=== PATIENT | female | born 1990 | race Caucasian/White ===

== ENCOUNTER 2020-10-14 10:16 | Outpatient (REF) | payer OTHER, SELFPAY ==
[2020-10-14 12:01] LABS: Basophils Percent Auto 0.2 % (0-2); Eosinophils Absolute Auto 0.2 X10*3/uL (0.0-0.4); Eosinophils Percent Auto 1.3 % (0-4); Hematocrit 39.5 % (37-47); Hemoglobin 13.2 g/dl (12.0-16.0); Imm Gran Abs Auto 0.06 X10*3/uL (0.00-0.03); Imm Gran Pct Auto 0.5 % (0.0-0.4); Lymphocytes Absolute Auto 3.4 X10*3/uL (1.2-4.9); Lymphocytes Percent Auto 30.4 % (20-40); MANUAL DIFF FLAG NO; Mean Corpuscular HGB Conc 33.4 g/dl (31.0-35.0); Mean Corpuscular Hemoglobin 29.9 pg (27.0-33.0); Mean Corpuscular Volume 89.4 fL (80-98); Monocytes Absolute Auto 0.7 X10*3/uL (0.1-1.2); Monocytes Percent Auto 6.6 % (2-11); Neutrophils Absolute Auto 6.8 X10*3/uL (2.0-8.3); Platelet Count 323 X10*3/uL (160-400); Red Blood Count 4.42 X10*6/uL (4.20-5.50); Red Cell Distribution Width 12.2 % (11.0-16.0); White Blood Count 11.2 X10*3/uL (4.8-10.8)
[2020-10-14 12:36] LABS: Cholesterol 217 mg/dL; HDL Cholesterol 35 mg/dL; LDL Cholesterol Calculated 144 mg/dl; Triglycerides 193 mg/dL
[2020-10-14 12:42] LABS: Thyroid Stimulating Hormone 0.97 uIU/mL (0.32-4.0)
[2020-10-14 13:14] LABS: Estimated Average Glucose 131 mg/dL; Hemoglobin A1C 149.7021 umol/L; Hemoglobin A1c % 6.2 %
[2020-10-14 13:20] LABS: Creatinine Urine 322.42 mg/dL; Microalbum/Creatinine Ratio Ur 8.6 ug/mg cr
== END 2020-10-14 10:17 | disposition home or self-care (01) ==
LOC: HO.LAB 10:16
PROVIDERS: Visit Provider Internal Medicine
DX: Z00.00 Encounter for general adult medical examination without abnormal findings (principal); E11.9 Type 2 diabetes mellitus without complications; E03.9 Hypothyroidism, unspecified
CPT/HCPCS: 36415; 80061; 82043; 83036; 84443; 85025

== ENCOUNTER → 2021-03-14 15:38 | Outpatient (BNVA) | payer OTHER, SELFPAY | PROVIDERS: PCP Internal Medicine; Referring Provider Internal Medicine; Visit Provider Physician Assistant ==

== ENCOUNTER → 2021-03-20 13:36 | Outpatient (BNVA) | payer OTHER, SELFPAY | PROVIDERS: PCP Internal Medicine; Referring Provider Internal Medicine; Visit Provider Internal Medicine Cardiovascular Disease | DX: Z01.810 Encounter for preprocedural cardiovascular examination (principal); I25.10 Atherosclerotic heart disease of native coronary artery without angina pectoris; G70.00 Myasthenia gravis without (acute) exacerbation; J45.909 Unspecified asthma, uncomplicated; E11.9 Type 2 diabetes mellitus without complications; E66.01 Morbid (severe) obesity due to excess calories; Z88.0 Allergy status to penicillin; Z88.8 Allergy status to other drugs, medicaments and biological substances; Z79.52 Long term (current) use of systemic steroids; Z79.899 Other long term (current) drug therapy | CPT/HCPCS: 93005; 99202 ==

== ENCOUNTER → 2021-03-21 08:34 | Outpatient (BNVA) | payer OTHER, SELFPAY | PROVIDERS: PCP Internal Medicine; Visit Provider Surgery ==

== ENCOUNTER → 2021-04-16 08:22 | Outpatient (BNVA) | payer OTHER, SELFPAY | PROVIDERS: PCP Internal Medicine; Visit Provider Surgery ==

== ENCOUNTER 2021-04-23 | Outpatient (REF) | payer OTHER, SELFPAY | END 2021-04-23 00:01 | LOC: CF | PROVIDERS: PCP Internal Medicine; Visit Provider Dietitian, Registered | DX: Z01.818 Encounter for other preprocedural examination (principal); E66.01 Morbid (severe) obesity due to excess calories; E11.9 Type 2 diabetes mellitus without complications; K21.9 Gastro-esophageal reflux disease without esophagitis; G70.00 Myasthenia gravis without (acute) exacerbation; Z88.1 Allergy status to other antibiotic agents; Z91.010 Allergy to peanuts | CPT/HCPCS: 97802 ==

== ENCOUNTER → 2021-05-15 08:08 | Outpatient (BNVA) | payer OTHER, SELFPAY | PROVIDERS: PCP Internal Medicine; Visit Provider Dietitian, Registered | DX: E66.01 Morbid (severe) obesity due to excess calories (principal); Z68.42 Body mass index [BMI] 45.0-49.9, adult | CPT/HCPCS: 97803 ==

== ENCOUNTER → 2021-06-12 08:15 | Outpatient (BNVA) | payer OTHER, SELFPAY | PROVIDERS: PCP Internal Medicine; Visit Provider Dietitian, Registered ==

== ENCOUNTER → 2021-06-23 14:15 | Outpatient (REF) | payer OTHER, SELFPAY ==
--- NOTE | 2021-06-23 14:16 | CA_ITS ---
Transthoracic Echocardiogram Patient (Last, First, Middle): Denisse Desai, Gender: Female Date of : 1990 Age: 30 Procedure Date: 06/23/2021 Procedure Type: Transthoracic Echocardiogram Location: OP Height: 160.02 cm Weight: 131.54 kg BSA: 2.26 m2 Heart Rate: bpm BP: 120 / 80 mmHg Metal Cut Off Saw Operator: UMAIR Ulloa MD: Kunal Coughlin MD Maintenance Planning Clerk: Fabio Myers MD Symptoms: I25.10 - Atherosclerotic heart disease of [place] coronary... Study Quality: Fair ECG Rhythm: Sinus Conclusions: - Normal study Findings Left Ventricle Normal left ventricular size, thickness, and systolic function. The visually estimated ejection fraction is between 55-60%. Diastolic function is normal for age. Right Ventricle Normal right ventricular cavity size and systolic function. Atria Both atria are normal in size. There is no evidence of interatrial shunt. Aortic Valve Normal aortic valve structure and function. There is no aortic valve stenosis. There is no aortic valve regurgitation. Mitral Valve Normal mitral valve structure and function. There is trace mitral valve regurgitation. There is no mitral valve stenosis. Pulmonic Valve The pulmonic valve is likely normal. There is trace pulmonic valve regurgitation. Tricuspid Valve Normal tricuspid valve structure. There is trace tricuspid valve regurgitation. The right ventricular systolic pressure is normal. The right ventricular systolic pressure is 16 mmHg. Normal right atrial pressure. There is no evidence of pulmonary hypertension. Great Vessels All visible segments of the aorta are normal in size. The pulmonary artery was not well visualized. Venous The inferior vena cava is normal in size and collapses greater than 50% with inspiration. Pericardium/Pleural There is no evidence of pericardial effusion. Prior Study Comparison No prior study available for comparison. Measurements 2D Linear Measurements IVSd: 0.96 0.6-0.9/0.6-1.0 cm LVIDd: 4.58 3.9-5.3/4.2-5.9 cm LVIDd Index: 2.03 2.4-3.2/2.2-3.1 cm/m2 LVIDs: 2.73 2.0-3.6 cm LVPWd: 0.97 0.7-1.1 cm Ao Root: 3.40 2.1-3.5 cm LA Diam: 3.90 2.7-3.8/3.0-4.0 cm LAIDs Index: 1.73 1.5-2.3 cm/m2 LV Mass: 187.28 67-162/88-224 g LV Mass Index: 82.87 43-95/49-115 g/m2 LVOT Diam: 2.00 3.0+(-)1.3 cm 2D Systolic Function EF 4C: 56.20 >55% EF 2C: 52.50 >55% EF BiP: 54.50 >55% Mitral Valve MV Pk E: 0.91 MV PK A: 0.55 MV Decel Time: 212.00 E/A: 1.60 E'Lateral: 12.60 E'Medial: 8.05 E/E' Med: 11.30 E/E' Lat: 7.20 PHT: 62.00 MVA PHT: 3.55 Decel [place]: 4.27 Aortic Valve AoV Pk Reid: 1.42 AoV Mn Reid: 0.99 AoV VTI: 0.27 AoV Pk Grad: 8.00 Aov Mn Grad: 4.00 DEWEY Cont.VTI: 2.33 LVOT LVOT Pk Reid: 1.02 LVOT Mn Reid: 0.75 LVOT VTI: 0.20 LVOT Pk Grad: 4.00 LVOT Mn Grad: 2.00 LVOT Diam: 2.00 LVOT Area: 3.14 Diastolic Function MV Pk E: 0.91 MV Pk A: 0.55 E/A: 1.60 E'Medial: 8.05 E/E' Med: 11.30 E' Laterial: 12.60 E/E' Lat: 7.20 Tricuspid Valve TR Pk Reid: 1.81 TR Pk Grad: 13.00 RA Press: 3.00 RVSP: 16.00 Great Vessels Aorta Ao Root-2D: 3.40 2.0-3.7 cm Ao Asc: 3.30 2.1-3.4 cm Ao Arch: 2.80 Updated in Other Vendor System with Status of Final Fabio Myers MD electronically signed on 06/24/2021 10:20:04 AM with status of Final
== END ==
LOC: HO.CARD 14:15
PROVIDERS: Visit Provider Internal Medicine Cardiovascular Disease
DX: I25.10 Atherosclerotic heart disease of native coronary artery without angina pectoris (principal)
CPT/HCPCS: 93306

== ENCOUNTER → 2021-07-14 15:20 | Outpatient (BNVA) | payer OTHER, SELFPAY | PROVIDERS: PCP Internal Medicine; Referring Provider Internal Medicine; Visit Provider Internal Medicine Cardiovascular Disease | DX: Z01.810 Encounter for preprocedural cardiovascular examination (principal); E66.01 Morbid (severe) obesity due to excess calories | CPT/HCPCS: 99212 ==

== ENCOUNTER 2021-08-08 11:24 | Outpatient (REF) | payer OTHER, SELFPAY ==
[2021-08-08 12:25] LABS: MANUAL DIFF FLAG NO
[2021-08-08 12:29] LABS: Basophils Percent Auto 0.3 % (0-2); Eosinophils Absolute Auto 0.2 X10*3/uL (0.0-0.4); Eosinophils Percent Auto 1.5 % (0-4); Hematocrit 40.4 % (37-47); Hemoglobin 13.2 g/dl (12.0-16.0); Imm Gran Abs Auto 0.07 X10*3/uL (0.00-0.03); Imm Gran Pct Auto 0.5 % (0.0-0.4); Lymphocytes Absolute Auto 4.4 X10*3/uL (1.2-4.9); Lymphocytes Percent Auto 32.6 % (20-40); Mean Corpuscular HGB Conc 32.7 g/dl (31.0-35.0); Mean Corpuscular Hemoglobin 29.6 pg (27.0-33.0); Mean Corpuscular Volume 90.6 fL (80-98); Mean Platelet Volume 10.4 fL (9.4-12.3); Monocytes Absolute Auto 0.8 X10*3/uL (0.1-1.2); Monocytes Percent Auto 6.2 % (2-11); Neutrophils Absolute Auto 7.8 X10*3/uL (2.0-8.3); Neutrophils Percent Auto 58.9 % (45-73); Platelet Count 321 X10*3/uL (160-400); Red Blood Count 4.46 X10*6/uL (4.20-5.50); Red Cell Distribution Width 12.7 % (11.0-16.0); White Blood Count 13.3 X10*3/uL (4.8-10.8)
[2021-08-08 12:38] LABS: Alanine Aminotransferase 36 U/L (0-31); Alkaline Phosphatase 63 U/L (39-117); Anion Gap 13 (12-20); Aspartate Amino Transferase 36 U/L (5-31); Bilirubin Total 0.5 mg/dL (0.0-1.0); Blood Urea Nitrogen 13 mg/dL (9-16); Calcium 9.2 mg/dL (8.4-10.2); Carbon Dioxide 23 mmol/L (22-29); Chloride 105 mmol/L (96-108); Cholesterol 220 mg/dL; Estimated Glomerular Filt Rate > 60; Glucose Fasting 85 mg/dL (60-99); HDL Cholesterol 39 mg/dL; LDL Cholesterol Calculated 153 mg/dl; Potassium 4.1 mmol/L (3.3-5.1); Sodium 137 mmol/L (135-145); Total Protein 7.7 g/dL (6.5-8.0); Triglycerides 144 mg/dL
[2021-08-08 12:59] LABS: TSH reflex Free T4 1.79 uIU/mL (0.32-4.0); Vitamin D 25-OH Total 14.7 ng/mL (>30)
[2021-08-08 13:14] LABS: Folate 12.6 ng/mL (> or = 4.0); Vitamin B12 174 pg/mL (200-900)
[2021-08-08 13:20] LABS: Syphilis Screen Nonreactive (Nonreactive)
[2021-08-11 08:39] LABS: HBc Num1 0.08 S/CO (0.00-0.79); HBsAGNum1 0.47 S/CO (0.00-0.99); Hepatitis B Core Antibody Nonreactive (Nonreactive); Hepatitis B Surface Antigen Negative (Negative); ~HepC Num1 0.11 S/CO (0.00-0.79); ~Hepatitis C Antibody Nonreactive (Nonreactive)
[2021-08-11 09:00] LABS: HBS Num1 0.71 mIU/mL (0-7.99); HIV AB/AG Nonreactive (Nonreactive); ~Hepatitis B Surface Antibody NONREACTIVE (Nonreactive)
[2021-08-13 13:36] LABS: Chlamydia Pneumoniae IgA <1:16 titer (<1:16); Chlamydia Pneumoniae IgG <1:64 titer (<1:64); Chlamydia Pneumoniae IgM <1:10 titer (<1:10); Chlamydia Psittaci IgA <1:16 titer (<1:16); Chlamydia Psittaci IgG <1:64 titer (<1:64); Chlamydia Psittaci IgM <1:10 titer (<1:10); Chlamydia Trachomatis IgA <1:16 titer (<1:16); Chlamydia Trachomatis IgG <1:64 titer (<1:64); Chlamydia Trachomatis IgM <1:10 titer (<1:10)
== END 2021-08-08 11:25 | disposition home or self-care (01) ==
LOC: HO.LAB 11:24
PROVIDERS: PCP Internal Medicine; Visit Provider Nurse Practitioner Family
DX: Z01.84 Encounter for antibody response examination (principal); Z13.29 Encounter for screening for other suspected endocrine disorder; Z13.220 Encounter for screening for lipoid disorders; Z11.4 Encounter for screening for human immunodeficiency virus [HIV]; Z11.3 Encounter for screening for infections with a predominantly sexual mode of transmission; K21.9 Gastro-esophageal reflux disease without esophagitis
CPT/HCPCS: 36415; 80053; 80061; 82306; 82607; 82746; 84443; 85025; 86631; 86632; 86704; 86706; 86780; 86803; 87340; 87389

== ENCOUNTER 2021-08-28 11:34 | Outpatient (REF) | payer OTHER, SELFPAY ==
[2021-08-29 13:48] LABS: CT PCR NOT DETECTED (Not Detect.); NG PCR NOT DETECTED (Not Detect.)
[2021-08-30 14:44] LABS: BV Int Neg Control Negative (Negative); BV Int Pos Control Positive (Positive)
== END 2021-08-28 11:35 | disposition home or self-care (01) ==
LOC: HO.LAB 11:34
PROVIDERS: PCP Internal Medicine; Visit Provider Advanced Practice Midwife
DX: Z01.419 Encounter for gynecological examination (general) (routine) without abnormal findings (principal); E66.01 Morbid (severe) obesity due to excess calories; Z68.42 Body mass index [BMI] 45.0-49.9, adult; Z20.2 Contact with and (suspected) exposure to infections with a predominantly sexual mode of transmission
CPT/HCPCS: 87480; 87491; 87510; 87591; 87660; 88142

== ENCOUNTER 2021-10-25 17:25 | Outpatient (REF) | payer OTHER, SELFPAY | END 2021-10-25 17:26 | disposition home or self-care (01) | LOC: HO.LNP 17:25 | PROVIDERS: Visit Provider Physician Assistant Medical | DX: Z20.822 Contact with and (suspected) exposure to COVID-19 (principal) | CPT/HCPCS: U0003; U0005 ==

== ENCOUNTER 2021-10-27 10:58 | Outpatient (REF) | payer OTHER, SELFPAY ==
--- NOTE | ~2021-10-27 | XR_ITS ---
EXAMINATION: XR CHEST CLINICAL INFORMATION: Cough COMPARISON: 11/13/2016 TECHNIQUE: 2 views of the chest were obtained. FINDINGS: Lungs are clear. No focal consolidation or mass. Normal pulmonary vascularity. No pleural effusion or pneumothorax. Normal heart size. No acute osseous abnormality. XR/XR chest 2V IMPRESSION: Clear lungs.
--- NOTE | 2021-11-17 13:45 | PM.NEUROCN ---
History of Present Illness Data of Consult Service Date: 11/17/21 Primary Care Provider: Nemo Ortiz MD HPI Reason for consult: Myasthenia gravis 31 years old woman whose history was obtained with the help of an slat basket maker helper machine. She provided her own history and previous records mostly were not available. She said that she was diagnosed with myasthenia gravis in 2017 in this hospital but she has no record of seeing and neurologist. I did not find any lab test to confirm that either. I did notice that she had been admitted for dysphagia and breathing difficulties. She said that she left this state in 2017 to get better medical care and moved to [facility] where she was diagnosed with myasthenia gravis and was treated with thymectomy and then put on multiple medicines. She moved back to this area when COVID infection started, which was more than a year ago. Apparently her primary care physician referred her to [facility] Neurology but she has not been able to see any neurologist yet. She was in usual state of health until couple of days ago when she said that she had generalized muscle weakness. There was no double vision or difficulty breathing or difficulty swallowing. There was no associated cold or flu-like illness. She has not started taking any new medicine. Review of Systems Review of Systems: No recent cold or flu-like illness PMFSH Past Medical History Medical History Asthma CAD (coronary artery disease) Diabetes mellitus Fall GERD (gastroesophageal reflux disease) Lower back pain Morbid obesity Myasthenia gravis Sleep apnea Family History Family History Father Hypertension Diabetes Mother Diabetes Hypertension Maternal Grandfather Diabetes Hypertension Bone cancer Maternal Aunt Breast cancer Maternal Grandmother Diabetes Hypertension CVD (cardiovascular disease) Other Mental health disorder Surgical History Surgical History History of cholecystectomy History of tonsillectomy and adenoidectomy S/P thymectomy Social History Social History Housing: Apartment Alcohol intake: never Patient Tobacco Use Status: Never used Tobacco e-Cigarette/Vaping Use: Never Used Second Hand Smoke Exposure: No Advance Directives: No Advance Directives Information Provided: No Patient : No service: No Current occupational status: disabled Meds Allergies Allergy/AdvReac Type Severity Reaction Status Date / Time erythromycin base Allergy Intermediate Swelling Verified 10/25/21 14:45 levofloxacin [From LEVAQUIN] Allergy Intermediate RASH AND Verified 10/25/21 14:45 HIVES penicillin V Allergy Intermediate swelling Verified 10/25/21 14:45 Penicillins [PENICILLINS] Allergy Intermediate Swelling Verified 10/25/21 14:45 Home Medications Medication Instructions Recorded Confirmed Last Taken Type canagliflozin 100 mg tablet 100 mg PO DAILY 03/21/21 08/28/21 Unknown History (Invokana) topiramate 25 mg tablet 25 mg PO BID 03/21/21 08/28/21 Unknown History miscellaneous medical supply 1 ea MISCELLANEOUS .once a day ea 05/15/21 08/28/21 Unknown History Physical Exam Neuro: Other: she was alert and awake with normal spontaneity of speech fluency comprehension and affect. She was comfortably watching videos on her telephone when I arrived. There was no sign of distress. They might be mild bilateral ptosis. Face otherwise was symmetrical. Tongue was midline. There was no focal weakness for. Deep tendon reflexes were trace to 1+ with flexor plantars. Speech was normal. Assessment and Plan (1) Myasthenia gravis: Status: Acute 31 years old woman who provided her own history stating that she was diagnosed with myasthenia gravis in this hospital in 2017 but I did not find any such records. She said that she moved out of this state in 2017 to get a better health care in [place] where she was formally diagnosed with this condition and treated with thymectomy. Apparently she has been taking multiple medicines that suggested that she probably has this condition. She has been trying to obtain a Neurology follow-up and wanted to see nerve a neurologist in [facility] but so far has not been able to see 1. She came to emergency room with complaint of generalized weakness that started couple of days ago. There was no obvious infection or flu-like illness. Her examination at this time was nonfocal. There was no obvious dysphagia, dysphonia, dysarthria or difficulty breathing. Looking at her primary care's note, it seems that she was taking combination of prednisone, pyridostigmine, and mycophenylate. He said that she had records from her doctors in [place]. At this time my recommendation is to obtain as a tile: Receptor antibody titer with binding, blocking and modulating titers. It is critical to review her records from her doctors in [place] to find out the exact diagnosis. I recommend vital capacity or some appropriate pulmonary function test to rule out any pulmonary issues. I recommend admitting her for observation to make sure we are not dealing with myasthenia axis of [place] [facility], which might require urgent treatment with IVIG. Procedures Date of Service Date of Service: 11/17/21
== END 2021-10-27 10:59 | disposition home or self-care (01) ==
LOC: HO.HMGCX 10:58
PROVIDERS: PCP Internal Medicine; Visit Provider Nurse Practitioner Family
DX: R05.9 Cough, unspecified (principal)
CPT/HCPCS: 71046

== ENCOUNTER 2021-11-17 07:40 | Observation (INO) | payer OTHER, SELFPAY ==
[2021-11-17] VITALS (7 sets, daily range): BP systolic 123–138; BP diastolic 72–87; PULSE 82–91; RESP 14–18; TEMP 36.1–37.4; O2SAT 97–100; BMI 46.5
[2021-11-17 08:17] LABS: Appearance Urine CLOUDY; Color Urine RED; Glucose Urine UA NEG (NEG); Leukocyte Esterase Urine NEG (NEG); PH 5.5 (5.0-8.0); Specific Gravity - Urine >= 1.030 (1.005-1.025); UPreg QC Valid YES; Urine Blood 3+ (NEG); Urine Pregnancy NEGATIVE (NEGATIVE)
[2021-11-17 08:27] LABS: UACC Culture Trigger NO
[2021-11-17 08:28] LABS: RBC Urine TNTC /HPF (0); Squamous Epithelial Cell Urine 1+ /LPF; WBC Urine 0 /HPF (0-4)
--- NOTE | 2021-11-17 09:07 | ED_ITS ---
HPI - Female Genitourinary General Chief complaint: Urogenital-Female Stated complaint: back/arm pain Time Seen by Provider: 11/17/21 08:42 Source: patient Mode of arrival: ambulatory Limitations: no limitations History of Present Illness HPI Narrative: This is a 31-year-old female past medical history significant for diabetes, myasthenia gravis (not on treatment), coronary artery disease, obesity, asthma, MDD presents to the ED with concerns of bilateral flank pain and weakness X1 week, progressively worsening patient tells me this feels like her typical myasthenia gravis crisis. She tells me she feels so weak she is dropping things, this started yesterday. Patient denies recent illness. She tells me she is vaccinated against COVID-19. She denies shortness of breath, chest pain, nausea, vomiting, fevers, chills, saddle paresthesias, urinary incontinence/bowel incontinence, dysuria. To note, patient tells me that she has gotten a thymectomy for myasthenia gravis, and she has required multiple intubations in the past. Her last 1 was in 2016 year at [facility], and at [facility] elicited complaint: other (myalgias ) Pertinent past history: other (Myasthenia gravis) Onset (ago): week(s) (1) Severity: moderate Female Urogenital Radiation: Non-Radiating Vaginal discharge: none Vaginal bleeding: none Exacerbating factors: none Relieving factors: none Associated symptoms: weakness and back pain (Described as muscle soreness in the back) Treatment prior to arrival: none Sexual activity: No Patient : No Related Data Home Medications Medication Instructions Recorded Confirmed canagliflozin 100 mg tablet 100 mg PO DAILY 03/21/21 08/28/21 (Invokana) topiramate 25 mg tablet 25 mg PO BID 03/21/21 08/28/21 furosemide 40 mg tablet 1 tab PO DAILY 11/17/21 Previous Rx's Medication Instructions Recorded omeprazole 40 mg capsule,delayed 40 mg PO DAILY #90 cap 10/16/20 release norethindrone acetate 5 mg tablet 5 mg PO DAILY #90 tab 02/14/21 diclofenac sodium 75 mg 75 mg PO BID PRN 10 Days #20 tab 08/07/21 tablet,delayed release mycophenolate mofetil 500 mg tablet 1,000 mg PO Q12H 60 Days #240 tab 08/07/21 prednisone 10 mg tablet 10 mg PO BID 14 Days #28 tab 08/07/21 pyridostigmine bromide 60 mg tablet 60 mg PO BID 60 Days #120 tab 08/07/21 cholecalciferol (vitamin D3) 25 25 mcg PO DAILY 30 Days #30 tab 08/11/21 mcg (1,000 unit) tablet cyanocobalamin (vitamin B-12) 1,000 mcg PO DAILY 30 Days #30 tab 08/11/21 1,000 mcg tablet metronidazole 500 mg tablet 500 mg PO BID 7 Days #14 tab 09/05/21 albuterol sulfate 2.5 mg (3 mL) INHALATION QID PRN 10/25/21 #75 ml doxycycline hyclate 100 mg capsule 100 mg PO BID 10 Days #20 cap 10/25/21 prednisone 10 mg tablet 40 mg PO DAILY 3 Days #30 tab 10/25/21 Allergies Allergy/AdvReac Type Severity Reaction Status Date / Time erythromycin base Allergy Intermediate Swelling Verified 10/25/21 14:45 levofloxacin [From LEVAQUIN] Allergy Intermediate RASH AND Verified 10/25/21 14:45 HIVES penicillin V Allergy Intermediate swelling Verified 10/25/21 14:45 Penicillins [PENICILLINS] Allergy Intermediate Swelling Verified 10/25/21 14:45 Review of Systems Review of Systems: Constitutional : No Weight loss, No Fever, No Chills, + Fatigue, + Malaise ENT/Mouth : No sore throat, No Rhinorrhea Eyes: No Eye Pain, No Swelling, No Redness Cardiovascular : No Chest Pain, No SOB, No Dyspnea on Exertion, No Orthopnea, No Edema, No Palpitations Respiratory : No Cough, No Sputum, No Wheezing Gastrointestinal : No Nausea, No Vomiting, No Diarrhea, No Constipation, No abdominal Pain, No Hematochezia, No Melena Genitourinary : No Dysuria, No Urinary Frequency, No Hematuria, Musculoskeletal : No joint pain, + Myalgias, No Joint Swelling Skin : No Skin Lesions, No rash Neuro : + Weakness, No Numbness, No Dizziness, No Headache Psych : No Anxiety/Panic, No Depression All other systems reviewed and are negative Yes all other systems are reviewed and are negative PMFSH Past Medical History Attestation statement: The following information was validated with the patient. Source: old records reviewed and nursing notes reviewed Medical History Asthma CAD (coronary artery disease) Diabetes mellitus Fall GERD (gastroesophageal reflux disease) Lower back pain Morbid obesity Myasthenia gravis Sleep apnea Surgical History History of cholecystectomy History of tonsillectomy and adenoidectomy S/P thymectomy Family History Family History Father Hypertension Diabetes Mother Diabetes Hypertension Maternal Grandfather Diabetes Hypertension Bone cancer Maternal Aunt Breast cancer Maternal Grandmother Diabetes Hypertension CVD (cardiovascular disease) Other Mental health disorder Social History Social History Housing: Apartment Alcohol intake: never Patient Tobacco Use Status: Never used Tobacco e-Cigarette/Vaping Use: Never Used Second Hand Smoke Exposure: No Advance Directives: No Advance Directives Information Provided: No Patient : No service: No Current occupational status: disabled Physical Exam Vital Signs: Vital Signs: Last Vital Signs Temp 97.7 F 11/17/21 13:01 Pulse 86 11/17/21 14:36 Resp 18 11/17/21 14:36 BP 123/80 11/17/21 14:36 Pulse Ox 99 11/17/21 14:36 BMI result Body Mass Index 46.5 Vital signs stable Appearance: Alert.? Oriented X3.? No acute distress.? Patient not using accessory muscles for breathing. Head: Normocephalic, atraumatic, no step-offs or deformities Eyes: Pupils equal, round and reactive to light.? ENT: Pharynx normal.? Neck: Normal inspection.? Neck supple.? CVS: Normal heart rate and rhythm.? Pulses normal.? Respiratory: No respiratory distress.? Breath sounds normal.? Abdomen: Soft and nontender.? Skin: Skin warm and dry.? Normal skin color.? Normal skin turgor.? Extremities: No lower extremity edema.? No calf ttp. 5/5 strength to bilateral upper and lower extremities Back: No midline tenderness, no C-spine tenderness, full range of motion, no CVA tenderness bilaterally Neuro: Oriented X 3.? No motor deficit.? No sensory deficit. Patient ambulating with a slow gait. Proprioception intact upper and lower extremities. Two-point extinction intact upper and lower extremities Course Reevaluation(s) Reevaluation #1: CBC within normal limits. No acute electrolyte abnormalities. Transaminases are noted to be elevated, this appears to be chronic in nature they have been elevated in the past last time they were elevated with August 08, 2021. Patient's CRP markedly elevated 2.45. At this time I will reach out to Neurology for guidance on patient management. Time: 10:43 Reevaluation #2: Spoke to who suggest transfer to [facility]. 1105 Spoke to [facility] waiting for a call back. [address] [facility] [address] Lee tells me that this is a patient that is followed by [facility] did not accept transfer. They recommend me call [facility]. Time: 11:35 Reevaluation #3: [address] [facility] closed to transfers. 1155 [place] at capacity. Will get put on wait list 1218 [place] closed for transfers Time: 12:18 Additional Reevaluation(s): 1355 Dr Ferreira recommendation At this time my recommendation is to obtain as a tile: Receptor antibody titer with binding, blocking and modulating titers.? It is critical to review her records from her doctors in [place] to find out the exact diagnosis.? I recommend vital capacity or some appropriate pulmonary function test to rule out any pulmonary issues. ? I recommend admitting her for observation to make sure we are not dealing with myasthenia axis of [facility], ich might require urgent treatment with IVIG. Will reach out to hospitalist for admission. MDM - Female Genitourinary MDM Narrative Medical decision making narrative: 939 31 yo F pmhx diabetes, myasthenia gravis (not on treatment), coronary artery disease, obesity, asthma, MDD presents w/ bilateral flank pain and weakness X1 week, progressively worsening patient tells me this feels like her typical myasthenia gravis crisis. Has required BIPAP and intubation in the past for MG. Not on maintenance therapy. PE benign, 5/5 strength upper and lower extremities. Proprioception intact. Two-point extinction intact. Full range of motion to all extremities. No accessory muscle use. Plan at this time is to obtain basic labs, and consult Neurology for advised. Medical Records Attestation: I reviewed the patient's medical records. Lab Data Attestation: I reviewed the patient's lab results. Result diagrams: 11/17/21 09:39 11/17/21 09:39 Labs: Lab Results 11/17/21 11/17/21 11/17/21 Range/Units 08:06 08:06 09:32 WBC (4.8-10.8) X10*3/uL RBC (4.20-5.50) X10*6/uL Hgb (12.0-16.0) g/dl Hct (37.0-47.0) % MCV (80.0-98.0) fL MCH (27.0-33.0) pg MCHC (31.0-35.0) g/dl RDW (11.0-16.0) % Plt Count (160-400) X10*3/uL MPV (9.4-12.3) fL Immature Gran % (Auto) (0.0-0.4) % Neut % (Auto) (45-73) % Lymph % (Auto) (20-40) % [place] % (Auto) (2-11) % Eos % (Auto) (0-4) % Baso % (Auto) (0-2) % Lymph # (Auto) (1.2-4.9) X10*3/uL [place] # (Auto) (0.1-1.2) X10*3/uL Eos # (Auto) (0.0-0.4) X10*3/uL Baso # (Auto) (0.0-0.2) X10*3/uL Abs Immat Gran (auto) (0.00-0.03) X10*3/uL Absolute Neuts (auto) (2.0-8.3) x10*3/uL Absolute Nucleated RBC (0.0-0.012) X10*3/uL Nucleated RBC % (auto) (0.0-0.2) /100WBC Smear Tech's Comments ESR (0-20) MM/HR Sodium (135-145) mmol/L Potassium (3.3-5.1) mmol/L Chloride (96-108) mmol/L Carbon Dioxide (22-29) mmol/L Anion Gap (12-20) BUN (9-16) mg/dL Creatinine (0.5-1.4) mg/dL Estim Creat Clear Calc Estimated GFR Random Glucose (60-115) mg/dL Calcium (8.4-10.2) mg/dL Total Bilirubin (0.0-1.0) mg/dL AST (5-31) U/L ALT (0-31) U/L Alkaline Phosphatase (39-117) U/L C-Reactive Protein (< or = 0.50) mg/dL Total Protein (6.5-8.0) g/dL Albumin (3.5-5.0) g/dL Urine Color RED Urine Appearance CLOUDY Urine pH 5.5 (5.0-8.0) Ur Specific [place] >= 1.030 H (1.005-1.025) Urine Protein SEE NOTE (NEG-TRACE) MG/DL Urine Glucose (UA) NEG (NEG) MG/DL Urine Ketones SEE NOTE (NEG) MG/DL Urine Blood 3+ H (NEG) Urine Nitrite SEE NOTE (NEG) Ur Leukocyte Esterase NEG (NEG) Urine RBC TNTC H (0) /HPF Urine WBC 0 (0-4) /HPF Ur Squamous Epith Cells 1+ /LPF Urine Bacteria NONE /LPF Urine Test NEGATIVE (NEGATIVE) COVID-19 (LAMAR) Negative (Negative) COVID-19 Clin Com See Note 11/17/21 11/17/21 11/17/21 Range/Units 09:39 09:39 09:39 WBC 6.7 (4.8-10.8) X10*3/uL RBC 4.24 (4.20-5.50) X10*6/uL Hgb 12.5 (12.0-16.0) g/dl Hct 38.2 (37.0-47.0) % MCV 90.1 (80.0-98.0) fL MCH 29.5 (27.0-33.0) pg MCHC 32.7 (31.0-35.0) g/dl RDW 12.9 (11.0-16.0) % Plt Count 208 (160-400) X10*3/uL MPV 9.4 (9.4-12.3) fL Immature Gran % (Auto) 0.1 (0.0-0.4) % Neut % (Auto) 51.8 (45-73) % Lymph % (Auto) 37.4 (20-40) % [place] % (Auto) 9.3 (2-11) % Eos % (Auto) 1.0 (0-4) % Baso % (Auto) 0.4 (0-2) % Lymph # (Auto) 2.5 (1.2-4.9) X10*3/uL [place] # (Auto) 0.6 (0.1-1.2) X10*3/uL Eos # (Auto) 0.1 (0.0-0.4) X10*3/uL Baso # (Auto) 0.0 (0.0-0.2) X10*3/uL Abs Immat Gran (auto) 0.01 (0.00-0.03) X10*3/uL Absolute Neuts (auto) 3.5 (2.0-8.3) x10*3/uL Absolute Nucleated RBC 0.000 (0.0-0.012) X10*3/uL Nucleated RBC % (auto) 0.0 (0.0-0.2) /100WBC Smear Tech's Comments VERIFIED ESR 28 H (0-20) MM/HR Sodium 139 (135-145) mmol/L Potassium 3.5 (3.3-5.1) mmol/L Chloride 106 (96-108) mmol/L Carbon Dioxide 27 (22-29) mmol/L Anion Gap 10 L (12-20) BUN 9 (9-16) mg/dL Creatinine 0.77 (0.5-1.4) mg/dL Estim Creat Clear Calc 144.6 Estimated GFR > 60 Random Glucose 169 H (60-115) mg/dL Calcium 8.8 (8.4-10.2) mg/dL Total Bilirubin 0.7 (0.0-1.0) mg/dL AST 40 H (5-31) U/L ALT 46 H (0-31) U/L Alkaline Phosphatase 60 (39-117) U/L C-Reactive Protein 2.45 H (< or = 0.50) mg/dL Total Protein 7.4 (6.5-8.0) g/dL Albumin 3.8 (3.5-5.0) g/dL Urine Color Urine Appearance Urine pH (5.0-8.0) Ur Specific [place] (1.005-1.025) Urine Protein (NEG-TRACE) MG/DL Urine Glucose (UA) (NEG) MG/DL Urine Ketones (NEG) MG/DL Urine Blood (NEG) Urine Nitrite (NEG) Ur Leukocyte Esterase (NEG) Urine RBC (0) /HPF Urine WBC (0-4) /HPF Ur Squamous Epith Cells /LPF Urine Bacteria /LPF Urine Test (NEGATIVE) COVID-19 (LAMAR) (Negative) COVID-19 Clin Com Critical Care Time Critical Care Time Critical Care Time: Yes Total Critical Care Time: 60 Attestation: I attest to this time spent taking care of the patient obtaining history and physical, reviewing labs, reviewing previous visits, reaching out to multiple specialists, reaching out to over 5 hospitals for transfer, consulting with my attending. Discharge Plan Discharge Clinical Impression: Myalgia, Myasthenia gravis Patient Disposition: Admitted As Inpatient Additional Instructions: Take your medications as prescribed. If you were prescribed antibiotics today, it is important that you take your medication to their entirety, do not skip any doses, do not finish them early. Follow-up with your primary care provider this week. Follow up with neurology Return to the emergency department with new or worsening symptoms. In case of emergency call 911
[2021-11-17 09:44] LABS: Basophils Percent Auto 0.4 % (0-2); Eosinophils Absolute Auto 0.1 X10*3/uL (0.0-0.4); Hematocrit 38.2 % (37.0-47.0); Hemoglobin 12.5 g/dl (12.0-16.0); Imm Gran Abs Auto 0.01 X10*3/uL (0.00-0.03); Imm Gran Pct Auto 0.1 % (0.0-0.4); Lymphocytes Absolute Auto 2.5 X10*3/uL (1.2-4.9); Lymphocytes Percent Auto 37.4 % (20-40); MANUAL DIFF FLAG SCAN; Mean Corpuscular HGB Conc 32.7 g/dl (31.0-35.0); Mean Corpuscular Hemoglobin 29.5 pg (27.0-33.0); Mean Corpuscular Volume 90.1 fL (80.0-98.0); Mean Platelet Volume 9.4 fL (9.4-12.3); Monocytes Absolute Auto 0.6 X10*3/uL (0.1-1.2); Monocytes Percent Auto 9.3 % (2-11); Neutrophils Absolute Auto 3.5 x10*3/uL (2.0-8.3); Neutrophils Percent Auto 51.8 % (45-73); Platelet Count 208 X10*3/uL (160-400); Red Blood Count 4.24 X10*6/uL (4.20-5.50); Red Cell Distribution Width 12.9 % (11.0-16.0); SCAN SMEAR FLAG 1; White Blood Count 6.7 X10*3/uL (4.8-10.8)
[2021-11-17 10:00] LABS: Alanine Aminotransferase 46 U/L (0-31); Albumin Level 3.8 g/dL (3.5-5.0); Alkaline Phosphatase 60 U/L (39-117); Anion Gap 10 (12-20); Aspartate Amino Transferase 40 U/L (5-31); Bilirubin Total 0.7 mg/dL (0.0-1.0); Blood Urea Nitrogen 9 mg/dL (9-16); Calcium 8.8 mg/dL (8.4-10.2); Carbon Dioxide 27 mmol/L (22-29); Chloride 106 mmol/L (96-108); Creatinine Clr Calc Pharmacy 144.6; Estimated Glomerular Filt Rate > 60; Glucose Random 169 mg/dL (60-115); Potassium 3.5 mmol/L (3.3-5.1); Sodium 139 mmol/L (135-145); Total Protein 7.4 g/dL (6.5-8.0)
[2021-11-17 10:01] LABS: SLIDE REVIEW VERIFIED
[2021-11-17 10:07] LABS: C Reactive Protein 2.45 mg/dL (< or = 0.50)
[2021-11-17 10:08] LABS: COVID-19 Test Negative (Negative); IDNOW Serial# 9DD0AD1C
[2021-11-17 10:44] LABS: Erythrocyte Sedimentation Rate 28 MM/HR (0-20)
--- NOTE | 2021-11-17 11:05 | PC.NURSE ---
@11:00AM JARETH BYRNES ASKS FOR CALL OUT TO [facility] [place] LINE [phone] EMILY ANSWERS AND ASKS TO SPEAK WITH JARETH BYRNES TAKES OVER CALL RIGHT AWAY
--- NOTE | 2021-11-17 11:46 | PC.NURSE ---
@1140AM JARETH BYRNES REQUESTS CALL OUT TO [facility] FOR POSSIBLE TRANSFER AFTER DECLINE BY [facility] HEMANT ANSWERS AND SAYS THEY ARE CLOSED TO TRANSFERS @ THIS TIME, DOES NOT ASK TO SPEAK WITH JARETH BYRNES AWARE
--- NOTE | 2021-11-17 11:49 | PC.NURSE ---
@ 1149AM SONIYA REQUESTS CALL OUT TO [facility] SOM ANSWERS AND ASKS TO SPEAK WITH SONIYA
--- NOTE | 2021-11-17 12:07 | PC.NURSE ---
@ 1207PM JARETH BYRNES REQUESTS CALL OUT TO [facility] AFTER TRANSFER DECLINES FROM [facility] AND [facility] JUAN ANSWERS AND ASKS TO SPEAK WITH JARETH BYRNES TAKES OVER CALL RIGHT AWAY
--- NOTE | 2021-11-17 13:21 | PC.NURSE ---
dr benton at bedside assessing patient.
--- NOTE | 2021-11-17 13:56 | PC.RT ---
11/17/2021 - NIF measured per provider request. -60
--- NOTE | 2021-11-17 15:43 | PHA.MEDREC ---
Pharmacy Consult ? Medication Reconciliation Pharmacy has completed the medication reconciliation. Patient confirmed medications, but a refill history does not support it. Patient states they are on invokana and prednisone 20 daily (no taper). Patient does agree to poor adherence Thanks Philip
--- NOTE | 2021-11-17 16:25 | P.HPHOSP_ITS ---
History of Present Illness Date of Service: 11/17/21 Chief Complaint: generalized weakness This is a 31 yo F with a PMH outlined below who presents to the hospital with multiple generalized complaints which have been on going for the last 1 week or so. She reports that she feels extremely week and that her muscles are fatigued. She reports exertional shortness of breath. She denies any fevers or chills. She denies any nausea or vomiting. She denies any chest pain or palpitations. She denies any falls. She reports that she was diagnosed with MG and had a thyomectomy performed in [facility] at some point in 2017. She has been on immunosuppressive treatments since then. Upon arrival to the ED, the patient underwent basic work up. She was evaluated by neurology who recommended checking ACTH titers (Modulating, blocking and binding) along with observation to monitor respiratory status. Review of Systems Review of Systems: negative except HPI [facility] Medical History Asthma CAD (coronary artery disease) Diabetes mellitus Fall GERD (gastroesophageal reflux disease) Lower back pain Morbid obesity Myasthenia gravis Sleep apnea Family History Father Hypertension Diabetes Mother Diabetes Hypertension Maternal Grandfather Diabetes Hypertension Bone cancer Maternal Aunt Breast cancer Maternal Grandmother Diabetes Hypertension CVD (cardiovascular disease) Other Mental health disorder Surgical History History of cholecystectomy History of tonsillectomy and adenoidectomy S/P thymectomy Social History Housing: Apartment Alcohol intake: never Patient Tobacco Use Status: Never used Tobacco e-Cigarette/Vaping Use: Never Used Second Hand Smoke Exposure: No Advance Directives: No Advance Directives Information Provided: No Patient : No service: No Current occupational status: disabled Meds Allergies Allergy/AdvReac Type Severity Reaction Status Date / Time erythromycin base Allergy Intermediate Swelling Verified 10/25/21 14:45 levofloxacin [From LEVAQUIN] Allergy Intermediate RASH AND Verified 10/25/21 14:45 HIVES penicillin V Allergy Intermediate swelling Verified 10/25/21 14:45 Penicillins [PENICILLINS] Allergy Intermediate Swelling Verified 10/25/21 14:45 Active Medications: Current Medications Acetaminophen (Acetaminophen 325 Mg Tablet) 650 mg PO Q6H PRN PRN Reason: Pain, Mild (Pain Scale 1-3) Cyanocobalamin (Cyanocobalamin (Vitamin B-12) 1,000 Mcg Tablet) 1,000 mcg PO DAILY DOMINICK Furosemide (Furosemide 40 Mg Tablet) 40 mg PO DAILY DOMINICK; Protocol Mycophenolate Mofetil (Mycophenolate Mofetil 250 Mg Capsule) 1,000 mg PO Q12H DOMINICK Omeprazole (Omeprazole 40 Mg Capsule.) 40 mg PO DAILY PRN PRN Reason: Acid Reflux Pharmacy Consult (Consult Rx Perform Med Rec) 1 each MISCELLANE ONCE PRN PRN Reason: Consult order Prednisone (Prednisone 20 Mg Tablet) 20 mg PO DAILY DOMINICK Pyridostigmine [place] (Pyridostigmine [place] 60 Mg Tablet) 60 mg PO BID DOMINICK Sodium Chloride (0.9 % Sodium Chloride Flush 3 Ml Syringe) 3 ml IVFLUSH QSHIFT DOMINICK Vitamin D (Cholecalciferol (Vitamin D3) 25 Mcg Tablet) 25 mcg PO DAILY [facility] Home Medications Medication Instructions Recorded Confirmed Last Taken Type canagliflozin 100 mg tablet 100 mg PO DAILY 03/21/21 08/28/21 Unknown History (Invokana) furosemide 40 mg tablet 1 tab PO DAILY 11/17/21 11/17/21 11/16/21 History omeprazole 40 mg capsule,delayed 40 mg PO DAILY PRN 11/17/21 11/17/21 11/16/21 History release prednisone 10 mg tablet 20 mg PO DAILY 11/17/21 11/17/21 11/16/21 History Physical Exam Vital Signs and Narrative: Vital Signs: Last Vital Signs Temp 98.1 F 11/17/21 16:05 Pulse 84 11/17/21 16:05 Resp 18 11/17/21 16:05 BP 131/72 11/17/21 16:05 Pulse Ox 100 11/17/21 16:05 BMI result Body Mass Index 46.5 Const: Other: Constitutional - Awake and Alert, No apparent distress Eyes - PERRLA, EOMI Cardiovascular - S1S2, RRR, No edema Respiratory - Normal lung expansion, Normal respiratory effort, No respiratory distress, CTA bilaterally Gastrointestinal - NT / ND; +BS; No rebound or guarding - No CVA tenderness Extremities - no calf tenderness bilaterally, no swelling Musculoskeletal - Normal inspection, normal ROM Skin - Warm/Dry Neurological - Alert & oriented x3, No focal deficit; strength 5/5 in all extremities; CN 2-12 intact bilaterally Psychological - Appropriate affect Results Labs CBC and Chem 7: 11/17/21 09:39 11/17/21 09:39 Labs: Laboratory Results - last 24 hr 11/17/21 11/17/21 11/17/21 08:06 08:06 09:32 MCV MCH MCHC RDW Plt Count MPV Immature Gran % (Auto) Neut % (Auto) Lymph % (Auto) [place] % (Auto) Eos % (Auto) Baso % (Auto) Lymph # (Auto) [place] # (Auto) Eos # (Auto) Baso # (Auto) Abs Immat Gran (auto) Absolute Neuts (auto) Absolute Nucleated RBC Nucleated RBC % (auto) Smear Tech's Comments ESR Anion Gap Estim Creat Clear Calc Estimated GFR Random Glucose Calcium Total Bilirubin AST ALT Alkaline Phosphatase C-Reactive Protein Total Protein Albumin Urine Color RED Urine Appearance CLOUDY Urine pH 5.5 Ur Specific [place] >= 1.030 H Urine Protein SEE NOTE Urine Glucose (UA) NEG Urine Ketones SEE NOTE Urine Blood 3+ H Urine Nitrite SEE NOTE Ur Leukocyte Esterase NEG Urine RBC TNTC H Urine WBC 0 Ur Squamous Epith Cells 1+ Urine Bacteria NONE Urine Test NEGATIVE COVID-19 (LAMAR) Negative COVID-19 Clin Com See Note 11/17/21 11/17/21 11/17/21 09:39 09:39 09:39 MCV 90.1 MCH 29.5 MCHC 32.7 RDW 12.9 Plt Count 208 MPV 9.4 Immature Gran % (Auto) 0.1 Neut % (Auto) 51.8 Lymph % (Auto) 37.4 [place] % (Auto) 9.3 Eos % (Auto) 1.0 Baso % (Auto) 0.4 Lymph # (Auto) 2.5 [place] # (Auto) 0.6 Eos # (Auto) 0.1 Baso # (Auto) 0.0 Abs Immat Gran (auto) 0.01 Absolute Neuts (auto) 3.5 Absolute Nucleated RBC 0.000 Nucleated RBC % (auto) 0.0 Smear Tech's Comments VERIFIED ESR 28 H Anion Gap 10 L Estim Creat Clear Calc 144.6 Estimated GFR > 60 Random Glucose 169 H Calcium 8.8 Total Bilirubin 0.7 AST 40 H ALT 46 H Alkaline Phosphatase 60 C-Reactive Protein 2.45 H Total Protein 7.4 Albumin 3.8 Urine Color Urine Appearance Urine pH Ur Specific [place] Urine Protein Urine Glucose (UA) Urine Ketones Urine Blood Urine Nitrite Ur Leukocyte Esterase Urine RBC Urine WBC Ur Squamous Epith Cells Urine Bacteria Urine Test COVID-19 (LAMAR) COVID-19 Clin Com Assessment and Plan (1) Generalized weakness: Status: Acute This is a 31 yo F who presents to the hospital with 1 week or generalized weakness and fatigue. Given her history of MG, she will be admitted under observation and have frequent monitoring of her respiratory status. 1. Generalized weakness and fatigue No specific cause found She does have a history of MG. Currently stable, will monitor with frequent respiratory status -- VC/MIP. Ordered placed under nursing notification as misc. respiratory orders unavailable. D/w respiratory therapist as well whom will pass it to the night team. Would need IVIG and consideration of elective intubation should she had further decline Neurology on board. Antibody titers ordered continue her baseline MG meds 2. DM hold orals, use sliding scale POC 3. Asthma, intermittent by patients history PRN nebs 4. Morbid obesity outpatient bariatric referral if not already done continue other baseline meds Full Code DVT pptx, Lovenox Quality Stroke Does the patient have a stroke diagnosis?: No VTE Prior VTE?: No VTE Risk Level:: Medical - moderate - high VTE Device Contraindication: Treatment Not Indicated VTE Drug Contraindication: N/A - Med Ordered
[2021-11-17] MEDS: Enoxaparin Sodium 40 MG/0.4 ML SYRINGE SUBCUT (18:21)
[2021-11-17 20:29] LABS: Glucose, Whole Blood 141 mg/dL (60-115)
[2021-11-17] MEDS: mycophenolate mofetiL 250 MG CAPSULE 1000 MG PO (21:36)
[2021-11-17] MEDS: Acetaminophen 325 MG TABLET 650 MG PO (21:39)
[2021-11-18 07:56] LABS: Glucose, Whole Blood 138 mg/dL (60-115)
[2021-11-18 08:35] VITALS: BP 122/67; PULSE 91; RESP 18; O2SAT 97
--- NOTE | 2021-11-18 08:35 | PC.NURSE ---
Pt A&OX3, no complaints at this time, OOB to BR independently. Eating breakfast. No insulin coverage needed. Will continue to monitor.
[2021-11-18] MEDS: Cholecalciferol (Vitamin D3) 25 MCG TABLET PO (09:38)
[2021-11-18] MEDS: Furosemide 40 MG TABLET PO (09:38)
[2021-11-18] MEDS: Cyanocobalamin (Vitamin B-12) 1,000 MCG TABLET 1000 MCG PO (09:38)
[2021-11-18] MEDS: 0.9 % Sodium Chloride Flush 3 ML SYRINGE IVFLUSH ×2 (09:38→13:32)
[2021-11-18] MEDS: predniSONE 20 MG TABLET PO (09:38)
[2021-11-18] MEDS: mycophenolate mofetiL 250 MG CAPSULE 1000 MG PO (09:40)
--- NOTE | 2021-11-18 09:42 | MHC.CM.PN ---
CM spoke with Patient over the phone, with a [employer] at [phone].Patient lives in an apartment with her 9 year old Son, who is presently being care for by Patient's Friend. Patient's Friend is also Patient's LINE LEADER 1 Hour/day. Home/resume LINE LEADER is the goal for dc and CM has initiated and will follow for dc planning. PCP is Dr. Nemo Rodriguez.
[2021-11-18 12:42] LABS: Glucose, Whole Blood 134 mg/dL (60-115)
--- NOTE | 2021-11-18 13:52 | PM.DS ---
DS: Providers Provider Date of Service: 11/18/21 Date of admission: 11/17/21 16:02 Primary care physician: Nemo Ortiz MD Consults: 11/17/21 16:04 Consult to Neurology Routine Consulting Provider: [facility] Reason for consultation: eval for MG exacerbation, dr. alvarez has seen the patient already Has provider been notified: Yes Attending physician on discharge: David Montenegro Discharging clinician: Fransisca Almendarez DS: Diagnosis Discharge Diagnosis (1) Generalized weakness: Status: Acute DS: Summary Hospital Course Hospital Course: HP as per admitting provider This is a 31 yo F with a PMH outlined below who presents to the hospital with multiple generalized complaints which have been on going for the last 1 week or so. She reports that she feels extremely week and that her muscles are fatigued. She reports exertional shortness of breath. She denies any fevers or chills. She denies any nausea or vomiting. She denies any chest pain or palpitations. She denies any falls. She reports that she was diagnosed with MG and had a thyomectomy performed in [facility] at some point in 2017. She has been on immunosuppressive treatments since then. Upon arrival to the ED, the patient underwent basic work up. She was evaluated by neurology who recommended checking ACTH titers (Modulating, blocking and binding) along with observation to monitor respiratory status . Generalized weakness and fatigue with history of myasthenia gravis. No specific cause found, did not seem related to myasthenia gravis exacerbation. No signs of infection noted. Stable respiratory status. Remained stable and feeling better. No IVIG required. Seen and evaluated by neurology. She should follow up with her scheduled neurology appointment and also follow up with her primary care provider as needed. Time Spent with Patient Time attestation: Total time spent providing and/or coordinating discharge services: Discharge coordination time: Greater than 30 minutes Quality: Stroke Does the patient have a stroke diagnosis?: No Physical Exam Vital Signs: Vital Signs: Last Vital Signs Temp 99.3 F 11/17/21 22:10 Pulse 91 11/18/21 08:35 Resp 18 11/18/21 08:35 BP 122/67 11/18/21 08:35 Pulse Ox 97 11/18/21 08:35 BMI result Body Mass Index 46.5 Appearing in no acute distress head is normocephalic atraumatic eyes pupils are PERRLA sclera is anicteric mouth throat mucous membranes are intact and moist neck is supple no lymphadenopathy, no JVD noted lung sounds are clear to auscultation heart regular rate rhythm, clear S1, S2 positive bowel sounds, abdomen is soft, nontender neuro patient is alert x3, no focal deficits DS: Data Data Completed and Pending Labs on day of discharge: Laboratory Results - last 24 hr 11/17/21 11/18/21 11/18/21 20:14 07:48 12:35 POC Glucose 141 H 138 H 134 H Discharge Plan Discharge Anticipated Discharge Date/Time: 11/18/21 13:47 Patient Disposition: Home, Self-Care Discharge Diagnosis: Generalized weakness Referrals: Reuben Alvarez MD [Physician] - 2 days Nemo Lockett MD [Primary Care Provider] - 2 days Discharge Medications: Continued norethindrone acetate 5 mg tablet 5 mg PO DAILY Qty: 90 RF: 8 Hold Instructions: Doctor's Order cholecalciferol (vitamin D3) 25 mcg (1,000 unit) tablet 25 mcg PO DAILY 30 Days Qty: 30 RF: 2 cyanocobalamin (vitamin B-12) 1,000 mcg tablet 1,000 mcg PO DAILY 30 Days Qty: 30 RF: 2 furosemide 40 mg tablet 1 tab PO DAILY RF: 0 omeprazole 40 mg capsule,delayed release(DR/EC) 40 mg PO DAILY PRN (Reason: Acid Reflux) RF: 0 prednisone 10 mg tablet 20 mg PO DAILY RF: 0 diclofenac sodium 75 mg tablet,delayed release (DR/EC) 75 mg PO BID PRN (Reason: pain) 10 Days Qty: 20 RF: 0 Hold Instructions: Doctor's Order mycophenolate mofetil 500 mg tablet 1,000 mg PO Q12H 60 Days Qty: 240 RF: 0 Hold Instructions: Doctor's Order pyridostigmine bromide 60 mg tablet 60 mg PO BID 60 Days Qty: 120 RF: 0 albuterol sulfate 2.5 mg /3 mL (0.083 %) solution for nebulization 2.5 mg inhalation QID PRN (Reason: shortness of breath or wheezing) Qty: 75 RF: 0 Invokana 100 mg tablet 100 mg PO DAILY RF: 0 Discharge Orders: Discharge Order (Routine); Ordered 11/18/21 Ordered By: Fransisca Almendarez Diet: advance to usual diet Activity on Discharge: As tolerated Stand Alone Forms: Patient Portal Discharge page, Work/School Release Activity Restrictions/Additional Instructions: Take your medications as prescribed. If you were prescribed antibiotics today, it is important that you take your medication to their entirety, do not skip any doses, do not finish them early. Follow-up with your primary care provider this week. Follow up with neurology Return to the emergency department with new or worsening symptoms. In case of emergency call 911 Care Plan Goals: Resolution of symptoms Health Concerns: Generalized weakness Plan of Treatment: Follow up with primary care provider Keep your scheduled apt with your neurologist as scheduled Assessment: See discharge summary Patient Instructions: Musculoskeletal Pain (ED)
--- NOTE | 2021-11-18 13:52 | MHC.CM.PN ---
Patient has been medically cleared for dc to home today, no services.
[2021-11-23 00:26] LABS: Acetylcholine Receptor Binding 0.73 nmol/L
[2021-11-26 18:22] LABS: Acetylcholine Recep Modulating 46
[2021-11-27 21:41] LABS: Acetylcholine Recept. Blocking <15 (<15)
== END 2021-11-18 15:42 | disposition home or self-care (01) ==
LOC: HO.ED 14:32 → HO.EDOVER 16:33
PROVIDERS: Physician Assistant; Admitting Provider Family Medicine; Emergency Provider Emergency Medicine; PCP Internal Medicine; Visit Provider Nurse Practitioner Acute Care
DX: R53.1 Weakness (principal); G70.00 Myasthenia gravis without (acute) exacerbation; Q89.2 Congenital malformations of other endocrine glands; M54.50 Low back pain, unspecified; E11.9 Type 2 diabetes mellitus without complications; I25.10 Atherosclerotic heart disease of native coronary artery without angina pectoris; E66.01 Morbid (severe) obesity due to excess calories; Z68.42 Body mass index [BMI] 45.0-49.9, adult; Z20.822 Contact with and (suspected) exposure to COVID-19; Z92.25 Personal history of immunosuppression therapy; Z90.49 Acquired absence of other specified parts of digestive tract; Z82.49 Family history of ischemic heart disease and other diseases of the circulatory system; Z83.3 Family history of diabetes mellitus; Z80.3 Family history of malignant neoplasm of breast; Z80.8 Family history of malignant neoplasm of other organs or systems; Z88.1 Allergy status to other antibiotic agents; Z88.0 Allergy status to penicillin; Z79.52 Long term (current) use of systemic steroids; Z79.899 Other long term (current) drug therapy
CPT/HCPCS: 36415; 80053; 81001; 81025; 82947; 83519; 85025; 85652; 86140; 87635; 94010; 96372; 99219; 99284; 99291; J1650

== ENCOUNTER 2021-11-28 10:01 | Outpatient (REF) | payer OTHER, SELFPAY ==
[2021-11-28 11:23] LABS: Basophils Absolute Auto 0.1 X10*3/uL (0.0-0.2); Basophils Percent Auto 0.5 % (0-2); Eosinophils Absolute Auto 0.1 X10*3/uL (0.0-0.4); Eosinophils Percent Auto 0.6 % (0-4); Hematocrit 40.2 % (37.0-47.0); Hemoglobin 13.1 g/dl (12.0-16.0); Imm Gran Abs Auto 0.12 X10*3/uL (0.00-0.03); Imm Gran Pct Auto 0.9 % (0.0-0.4); Lymphocytes Percent Auto 66.7 % (20-40); MANUAL DIFF FLAG SCAN; Mean Corpuscular HGB Conc 32.6 g/dl (31.0-35.0); Mean Corpuscular Hemoglobin 29.2 pg (27.0-33.0); Mean Corpuscular Volume 89.5 fL (80.0-98.0); Mean Platelet Volume 10.9 fL (9.4-12.3); Monocytes Absolute Auto 0.4 X10*3/uL (0.1-1.2); Neutrophils Absolute Auto 3.6 x10*3/uL (2.0-8.3); Neutrophils Percent Auto 28.3 % (45-73); Platelet Count 181 X10*3/uL (160-400); Red Blood Count 4.49 X10*6/uL (4.20-5.50); Red Cell Distribution Width 13.8 % (11.0-16.0); SCAN SMEAR FLAG 1; White Blood Count 12.9 X10*3/uL (4.8-10.8)
[2021-11-28 11:28] LABS: Lymphocytes Absolute Auto 8.6 X10*3/uL (1.2-4.9)
[2021-11-28 11:51] LABS: Alanine Aminotransferase 51 U/L (0-31); Albumin Level 3.4 g/dL (3.5-5.0); Alkaline Phosphatase 79 U/L (39-117); Anion Gap 12 (12-20); Aspartate Amino Transferase 65 U/L (5-31); Bilirubin Total 0.8 mg/dL (0.0-1.0); Blood Urea Nitrogen 11 mg/dL (9-16); Calcium 8.7 mg/dL (8.4-10.2); Carbon Dioxide 25 mmol/L (22-29); Chloride 104 mmol/L (96-108); Cholesterol 147 mg/dL; Estimated Glomerular Filt Rate > 60; Glucose Fasting 199 mg/dL (60-99); HDL Cholesterol 12 mg/dL; LDL Cholesterol Calculated 60 mg/dl; Potassium 3.2 mmol/L (3.3-5.1); Sodium 138 mmol/L (135-145); Total Protein 7.7 g/dL (6.5-8.0); Triglycerides 377 mg/dL
[2021-11-28 11:57] LABS: SLIDE REVIEW VERIFIED
== END 2021-11-28 10:02 | disposition home or self-care (01) ==
LOC: HO.LAB 10:01
PROVIDERS: PCP Internal Medicine; Visit Provider Internal Medicine
DX: E66.01 Morbid (severe) obesity due to excess calories (principal); E11.9 Type 2 diabetes mellitus without complications; E78.5 Hyperlipidemia, unspecified; D64.9 Anemia, unspecified
CPT/HCPCS: 36415; 80053; 80061; 85025

== ENCOUNTER → 2021-12-05 09:57 | Outpatient (BNVA) | payer OTHER, SELFPAY | PROVIDERS: PCP Internal Medicine; Visit Provider Nurse Practitioner Gerontology | DX: E11.65 Type 2 diabetes mellitus with hyperglycemia (principal); E66.09 Other obesity due to excess calories; R79.89 Other specified abnormal findings of blood chemistry; Z68.43 Body mass index [BMI] 50.0-59.9, adult | CPT/HCPCS: 82947; 83036; 99212 ==

== ENCOUNTER → 2022-02-20 10:57 | Outpatient (BNVA) | payer OTHER, SELFPAY | PROVIDERS: PCP Internal Medicine; Visit Provider Registered Nurse Diabetes Educator | DX: E11.9 Type 2 diabetes mellitus without complications (principal) | CPT/HCPCS: 95250 ==

== ENCOUNTER → 2022-03-05 09:41 | Outpatient (BNVA) | payer OTHER, SELFPAY | PROVIDERS: PCP Internal Medicine; Visit Provider Nurse Practitioner Gerontology | DX: E11.649 Type 2 diabetes mellitus with hypoglycemia without coma (principal); E66.09 Other obesity due to excess calories; Z68.42 Body mass index [BMI] 45.0-49.9, adult; E55.9 Vitamin D deficiency, unspecified | CPT/HCPCS: 82947; 83036; 99212 ==

== ENCOUNTER → 2022-04-02 13:15 | Outpatient (BNVA) | payer OTHER, SELFPAY | PROVIDERS: PCP Internal Medicine; Referring Provider Internal Medicine; Visit Provider Physician Assistant | DX: K52.9 Noninfective gastroenteritis and colitis, unspecified (principal); K21.9 Gastro-esophageal reflux disease without esophagitis; K59.00 Constipation, unspecified; R11.0 Nausea; R11.2 Nausea with vomiting, unspecified; Z79.899 Other long term (current) drug therapy | CPT/HCPCS: 99202; 99212 ==

== ENCOUNTER → 2022-04-15 12:31 | Outpatient (BNVA) | payer OTHER, SELFPAY | PROVIDERS: PCP Internal Medicine; Referring Provider Internal Medicine; Visit Provider Physician Assistant | DX: Z13.89 Encounter for screening for other disorder (principal) ==

== ENCOUNTER 2022-05-25 16:52 | Outpatient (REF) | payer OTHER, SELFPAY ==
[2022-05-25 17:39] LABS: Influenza A PCR NEGATIVE (Negative); Influenza B PCR NEGATIVE (Negative); Resp Syncy Virus RNA Qual PCR NEGATIVE (Negative); SARS COV2 PCR INHOUSE NEGATIVE (Negative)
== END 2022-05-25 16:53 | disposition home or self-care (01) ==
LOC: HO.LNP 16:52
PROVIDERS: Visit Provider Emergency Medicine
DX: Z20.822 Contact with and (suspected) exposure to COVID-19 (principal); R68.89 Other general symptoms and signs
CPT/HCPCS: 0241U

== ENCOUNTER 2022-06-11 14:21 | Outpatient (REF) | payer OTHER, SELFPAY ==
[2022-06-08 12:48] VITALS: BMI 49.4
--- NOTE | 2022-06-11 | ECG_ITS ---
Test Reason : CAD, DM Blood Pressure : / mmHG Vent. Rate : 070 BPM Atrial Rate : 070 BPM P-R Int : 150 ms QRS Dur : 088 ms QT Int : 414 ms P-R-T Axes : 052 006 024 degrees QTc Int : 447 ms Normal sinus rhythm with sinus arrhythmia Normal ECG When compared with ECG of 09-NOV-2016 10:34, Vent. rate has decreased BY 35 BPM Referred By: Ivonne Gallardo Electronically Signed By:PAULA LARA
[2022-06-11 10:53] LABS: Hematocrit 36.2 % (37.0-47.0); Hemoglobin 12.3 g/dl (12.0-16.0); Mean Corpuscular Hemoglobin 29.6 pg (27.0-33.0); Mean Platelet Volume 9.9 fL (9.4-12.3); Platelet Count 269 X10*3/uL (160-400); Red Blood Count 4.16 X10*6/uL (4.20-5.50); Red Cell Distribution Width 12.7 % (11.0-16.0); White Blood Count 10.5 X10*3/uL (4.8-10.8)
[2022-06-11 11:01] LABS: UPreg QC Valid YES; Urine Pregnancy NEGATIVE (NEGATIVE)
[2022-06-11 11:10] LABS: Anion Gap 11 (12-20); Blood Urea Nitrogen 7 mg/dL (9-16); Calcium 8.7 mg/dL (8.4-10.2); Carbon Dioxide 26 mmol/L (22-29); Chloride 105 mmol/L (96-108); Creatinine Clr Calc Pharmacy 153.6; Estimated Glomerular Filt Rate > 60; Glucose Random 131 mg/dL (60-115); Sodium 138 mmol/L (135-145)
[2022-06-11 11:28] VITALS: BP 125/70; PULSE 82; RESP 18; TEMP 36.8; O2SAT 99
--- NOTE | 2022-06-11 11:32 | P.HPSUR_ITS ---
Pre-Procedural Eval Section A Date of Service: 06/11/22 Section B Chief Complaint: colitis,reflux,vomitting Relevant Social History: None Present Medications: see Short Stay Collaborative assessment Medical History: Significant History (Asthma CAD (coronary artery disease) Chronic diarrhea Diabetes mellitus DM2 (diabetes mellitus, type 2) Fall GERD (gastroesophageal reflux disease) Lower back pain Morbid obesity Myasthenia gr tyesha Myasthenia gravis Obesity due to excess calories Sleep apnea) History of Previous Operations: Relevant previous surgery/procedure and date(s) (History of cholecystectomy History of esophagogastroduodenoscopy (EGD) History of tonsillectomy and adenoidectomy S/P thymectomy) Allergies: Allergies Allergy/AdvReac Type Severity Reaction Status Date / Time erythromycin base Allergy Intermediate Swelling Verified 06/03/22 15:56 levofloxacin [From LEVAQUIN] Allergy Intermediate RASH AND Verified 06/03/22 15:56 HIVES Penicillins [PENICILLINS] Allergy Intermediate Swelling Verified 06/03/22 15:56 Review of Systems Sugical H&P ROS: Negative: Constitution, Cardiovascular, Respiratory, Neurological, Psychiatric, Hem-Onc, Allergic/Immunologic, Gastrointestinal, Genitourinary, Musculoskeletal, Integumentary, Endocrine and Eyes/Ears/Nose/Throat Exam Surgical H&P Exam: Normal: HEENT, Normal: Heart, Normal: Lungs, Normal: Extremities, Normal: Abdomen, Normal: Skin and Normal: Neurological Exam Comment: obese Plan Diagnosis/Plan: Unchanged I have reviewed the history and physical and performed a pertinent physical examination on my patient. No changes have occurred unless specified.
--- NOTE | 2022-06-11 11:41 | HO.ANESPROP2 ---
HPI - Anesthesia Eval Consult details Narrative: 31 F MA in the past PMFSH Active Problems Active Problems: All Active Problems (Updated 06/08/22 @ 12:47 by Dominga Pina RN) Diabetes mellitus (Acute) Myasthenia gravis (Acute) Fall (Acute) Pre-operative cardiovascular examination (Acute) MDD (major depressive disorder), recurrent episode, mild (Acute) Cervical cancer screening (Acute) Routine eye exam (Acute) Diarrhea (Acute) Screening for hyperlipidemia (Acute) Screening for hypothyroidism (Acute) Screening for STD (sexually transmitted disease) (Acute) Adult general medical exam (Acute) Morbid obesity with BMI of 45.0-49.9, adult (Acute) Low vitamin D level (Acute) Low vitamin B12 level (Acute) Elevated LFTs (Acute) Elevated WBCs (Acute) Well woman exam with routine gynecological exam (Acute) Cervical cancer screening (Acute) Bulging lumbar disc (Acute) Nausea & vomiting (Acute) Constipation (Acute) Chronic diarrhea (Acute) Obesity due to excess calories (Acute) DM2 (diabetes mellitus, type 2) (Acute) Asthma (Acute) Sleep apnea (Acute) GERD (gastroesophageal reflux disease) (Acute) Morbid obesity (Acute) CAD (coronary artery disease) (Acute) Lower back pain (Acute) Past Medical History Medical History Asthma CAD (coronary artery disease) Chronic diarrhea COVID-19 vaccine series completed DM2 (diabetes mellitus, type 2) GERD (gastroesophageal reflux disease) Lower back pain Morbid obesity Myasthenia gravis Obesity due to excess calories Sleep apnea Family History Family History Father Hypertension Diabetes Mother Diabetes Hypertension Maternal Grandfather Diabetes Hypertension Bone cancer Maternal Aunt Breast cancer Maternal Grandmother Diabetes Hypertension CVD (cardiovascular disease) Other Mental health disorder Surgical History Surgical History History of cholecystectomy History of esophagogastroduodenoscopy (EGD) History of tonsillectomy and adenoidectomy S/P thymectomy Social History Social History Housing: Apartment Are you a primary post acute care nurse to a significant other at home: No Do you presently have visiting nurse or other home services: Yes Alcohol intake: never Patient Tobacco Use Status: Never used Tobacco e-Cigarette/Vaping Use: Never Used Second Hand Smoke Exposure: No Use of substances other than those prescribed or required for medical reasons: No Are you DNR?: No Advance Directives: No Advance Directives Information Provided: Yes (brochure mailed) Advance Directives on File: No Recently lost weight without trying: No Eating poorly because of decreased appetite: No Nutrition Risks: No Nutritional Risk Poor oral hygiene: No service: No Current occupational status: employed Current occupational exposures/hazards: No Cognitive needs: Yes (walker) Hearing needs: No Vision needs: No Meds Allergies Allergy/AdvReac Type Severity Reaction Status Date / Time erythromycin base Allergy Intermediate Swelling Verified 06/03/22 15:56 levofloxacin [From LEVAQUIN] Allergy Intermediate RASH AND Verified 06/03/22 15:56 HIVES Penicillins [PENICILLINS] Allergy Intermediate Swelling Verified 06/03/22 15:56 Home Medications Medication Instructions Recorded Confirmed Last Taken Type furosemide 40 mg tablet 1 tab PO DAILY 11/17/21 06/05/22 11/16/21 History prednisone 10 mg tablet 20 mg PO DAILY 11/17/21 06/08/22 11/16/21 History cholecalciferol (vitamin D3) 25 25 mcg PO DAILY 03/05/22 06/05/22 Unknown History mcg (1,000 unit) tablet Exam Exam Date and Time: June 11, 2022 1141 Height,Weight and Vital Signs: Height 5 ft 3 in Weight 126.552 kg Last Vital Signs Temp 98.2 F 06/11/22 11:28 Pulse 82 06/11/22 11:28 Resp 18 06/11/22 11:28 BP 125/70 06/11/22 11:28 Pulse Ox 99 06/11/22 11:28 O2 Del Method 06/11/22 11:28 Pertinent Lab Results Pertinent Lab Results: Laboratory Tests 06/11/22 06/11/22 06/11/22 10:41 10:47 10:47 WBC 10.5 RBC 4.16 L Hgb 12.3 Hct 36.2 L MCV 87.0 MCH 29.6 MCHC 34.0 RDW 12.7 Plt Count 269 D MPV 9.9 Absolute Nucleated RBC 0.000 Nucleated RBC % (auto) 0.0 Sodium 138 Potassium 4.0 D Chloride 105 Carbon Dioxide 26 Anion Gap 11 L BUN 7 L Creatinine 0.70 Estim Creat Clear Calc 153.6 Estimated GFR > 60 Random Glucose 131 H Calcium 8.7 Urine Test NEGATIVE
--- NOTE | 2022-06-11 12:42 | PC.NURSE ---
procedure cancelled by anesthesia/Dr Isaacs. Patient not taking her myasthenia gravis medication [id number]. states she feels week/tired by end of day. Due to possible complications with anesthesia medication, they decided she needs to get back on medication and symptoms lessen before procedure. Dr Isaacs asked for her to have a neurology and pulmonolgy appointment before she leaves today. This RN spoke to [facility] (Christi) and states that the medication is at [facility] on [address] [place] with refills. Patient states she goes to [facility] on [address]. Per Christi, she will have someone call her from the office to discuss medications and an appointment. Patient verbalized understanding.
--- NOTE | 2022-06-11 13:30 | PC.NURSE ---
Appointment made with Pulmonology for today 06/11/22 at 1:30 pm. Patient discharged and escorted to Pulmonary office on 1st floor [facility]
[2022-06-11 14:52] LABS: MANUAL DIFF FLAG NO
[2022-06-11 14:57] LABS: VBG Base Excess 2.4 mmol/L; VBG HCO3 28 mmol/L (22-26); VBG pCO2 46 mmHg; VBG pH 7.38 (7.32-7.43); VBG pO2 33 mmHg
[2022-06-11 14:58] LABS: Basophils Percent Auto 0.2 % (0-2); Eosinophils Absolute Auto 0.2 X10*3/uL (0.0-0.4); Eosinophils Percent Auto 1.6 % (0-4); Hematocrit 36.2 % (37.0-47.0); Hemoglobin 12.2 g/dl (12.0-16.0); Imm Gran Abs Auto 0.04 X10*3/uL (0.00-0.03); Imm Gran Pct Auto 0.4 % (0.0-0.4); Lymphocytes Absolute Auto 4.3 X10*3/uL (1.2-4.9); Lymphocytes Percent Auto 42.2 % (20-40); Mean Corpuscular HGB Conc 33.7 g/dl (31.0-35.0); Mean Corpuscular Hemoglobin 29.2 pg (27.0-33.0); Mean Corpuscular Volume 86.6 fL (80.0-98.0); Mean Platelet Volume 9.8 fL (9.4-12.3); Monocytes Absolute Auto 0.5 X10*3/uL (0.1-1.2); Monocytes Percent Auto 5.2 % (2-11); Neutrophils Absolute Auto 5.1 x10*3/uL (2.0-8.3); Neutrophils Percent Auto 50.4 % (45-73); Platelet Count 269 X10*3/uL (160-400); Red Blood Count 4.18 X10*6/uL (4.20-5.50); Red Cell Distribution Width 12.6 % (11.0-16.0); White Blood Count 10.1 X10*3/uL (4.8-10.8)
[2022-06-11 14:59] LABS: Venous Blood Gas Refer to POC result
[2022-06-11 15:34] LABS: Erythrocyte Sedimentation Rate 32 MM/HR (0-20)
[2022-06-11 15:45] LABS: Cortisol Random 5.4 ug/dL
[2022-06-15 08:47] LABS: Anti Nuclear Antibody Screen NEGATIVE (NEGATIVE)
== END 2022-06-11 14:22 | disposition home or self-care (01) ==
LOC: HO.PAT 14:21
PROVIDERS: Anesthesiology; Hospitalist; Nurse Practitioner; PCP Internal Medicine; Visit Provider Internal Medicine Gastroenterology
DX: Z01.818 Encounter for other preprocedural examination (principal); K52.9 Noninfective gastroenteritis and colitis, unspecified; K21.9 Gastro-esophageal reflux disease without esophagitis; R11.2 Nausea with vomiting, unspecified; G70.00 Myasthenia gravis without (acute) exacerbation; J45.909 Unspecified asthma, uncomplicated
CPT/HCPCS: 36415; 80048; 81025; 82533; 82785; 82803; 85025; 85027; 85652; 86003; 86038; 86039; 93005; 94010; 99202

== ENCOUNTER → 2022-06-26 12:50 | Outpatient (BNVA) | payer OTHER, SELFPAY | PROVIDERS: PCP Internal Medicine; Visit Provider Nurse Practitioner Family | DX: G70.00 Myasthenia gravis without (acute) exacerbation (principal); R51.9 Headache, unspecified; E27.40 Unspecified adrenocortical insufficiency | CPT/HCPCS: 99202 ==

== ENCOUNTER → 2022-07-15 14:48 | Outpatient (BNVA) | payer OTHER, SELFPAY | PROVIDERS: PCP Internal Medicine; Referring Provider Internal Medicine; Visit Provider Internal Medicine Cardiovascular Disease | DX: R07.9 Chest pain, unspecified (principal) | CPT/HCPCS: 99212 ==

== ENCOUNTER → 2022-07-17 12:44 | Outpatient (BNVA) | payer OTHER, SELFPAY | PROVIDERS: PCP Internal Medicine; Visit Provider Hospitalist | DX: G70.00 Myasthenia gravis without (acute) exacerbation (principal); J45.909 Unspecified asthma, uncomplicated; E27.40 Unspecified adrenocortical insufficiency | CPT/HCPCS: 99212 ==

== ENCOUNTER → 2022-07-27 08:47 | Outpatient (REF) | payer OTHER, SELFPAY ==
--- NOTE | 2022-07-27 08:50 | CA_ITS ---
Acquisition Time: 2022-07-27 09:12:02 Total Exercise Time: 00:05:25 Test Indications: CP Medications: Protocol: ABBIE Max HR: 164 BPM 85% of Pred: 191 BPM Max BP: 130/078 mmHG Max Work Load: 7.0 METS Exercise stress test with exercise 5 min 25 sec of Abbie protocol, achieving 84% MPHR, 7 METs with report of fatigue and need to stop, with mild sob, no chest discomfort, without arrythmia, with normotensive response to exercise, without EKG changes meeting criteria for ischemia at achieved workload. Test reviewed with Dr Myers Referred By: Kunal Coughlin Overread By: ROXANNE TORRES
== END ==
LOC: HO.CARD 08:47
PROVIDERS: Visit Provider Internal Medicine Cardiovascular Disease
DX: R07.9 Chest pain, unspecified (principal)
CPT/HCPCS: 93017

== ENCOUNTER 2022-07-27 10:06 | Outpatient (REF) | payer OTHER, SELFPAY | END 2022-07-27 10:07 | disposition home or self-care (01) | LOC: HO.MDS 10:06 | PROVIDERS: Visit Provider Nurse Practitioner Family | DX: G70.00 Myasthenia gravis without (acute) exacerbation (principal) | CPT/HCPCS: 96365; 96366; J1569 ==

== ENCOUNTER 2022-07-28 11:10 | Outpatient (REF) | payer OTHER, SELFPAY | END 2022-07-28 11:11 | disposition home or self-care (01) | LOC: HO.MDS 11:10 | PROVIDERS: Visit Provider Nurse Practitioner Family | DX: G70.00 Myasthenia gravis without (acute) exacerbation (principal) | CPT/HCPCS: 96365; 96366; J1569 ==

== ENCOUNTER 2022-07-30 09:49 | Outpatient (REF) | payer OTHER, SELFPAY | END 2022-07-30 09:50 | disposition home or self-care (01) | LOC: HO.MDS 09:49 | PROVIDERS: Visit Provider Nurse Practitioner Family | DX: G70.00 Myasthenia gravis without (acute) exacerbation (principal) | CPT/HCPCS: 96365; 96366; 96375; J1569; J1885; Q0163 ==

== ENCOUNTER 2022-07-31 09:10 | Outpatient (REF) | payer OTHER, SELFPAY | END 2022-07-31 09:11 | disposition home or self-care (01) | LOC: HO.MDS 09:10 | PROVIDERS: Visit Provider Nurse Practitioner Family | DX: G70.00 Myasthenia gravis without (acute) exacerbation (principal) | CPT/HCPCS: 96365; 96366; 96375; J1569; J1885; Q0163 ==

== ENCOUNTER 2022-09-01 14:05 | Outpatient (REF) | payer OTHER, SELFPAY ==
[2022-09-02 05:34] LABS: CT PCR NOT DETECTED (Not Detect.); NG PCR NOT DETECTED (Not Detect.)
[2022-09-02 09:22] LABS: BV Int Neg Control Negative (Negative); BV Int Pos Control Positive (Positive)
[2022-09-05 02:03] LABS: HPV 16 RNA NOT DETECTED (NOT DETECTED); HPV mRNA E6/E7 rflx Detected (Not Detected)
== END 2022-09-01 14:06 | disposition home or self-care (01) ==
LOC: HO.LNP 14:05
PROVIDERS: Visit Provider Advanced Practice Midwife
DX: Z01.419 Encounter for gynecological examination (general) (routine) without abnormal findings (principal); Z11.3 Encounter for screening for infections with a predominantly sexual mode of transmission; Z11.51 Encounter for screening for human papillomavirus (HPV)
CPT/HCPCS: 87480; 87491; 87510; 87591; 87624; 87625; 87660; 88142

== ENCOUNTER → 2022-12-08 10:59 | Outpatient (BNVA) | payer OTHER, SELFPAY | PROVIDERS: PCP Internal Medicine; Visit Provider Nurse Practitioner Family | DX: G70.00 Myasthenia gravis without (acute) exacerbation (principal); G43.009 Migraine without aura, not intractable, without status migrainosus | CPT/HCPCS: 99212 ==

== ENCOUNTER → 2023-01-13 07:47 | Outpatient (BNVA) | payer OTHER, SELFPAY | PROVIDERS: PCP Internal Medicine; Visit Provider Hospitalist | DX: G70.00 Myasthenia gravis without (acute) exacerbation (principal); J45.909 Unspecified asthma, uncomplicated; E27.40 Unspecified adrenocortical insufficiency | CPT/HCPCS: 99212 ==

== ENCOUNTER → 2023-01-28 14:46 | Outpatient (REF) | payer OTHER, SELFPAY | LOC: HO.SL 14:46 | PROVIDERS: PCP Internal Medicine; Visit Provider Hospitalist | DX: Z13.89 Encounter for screening for other disorder (principal) ==

== ENCOUNTER → 2023-02-25 15:02 | Outpatient (BNVA) | payer OTHER, SELFPAY | PROVIDERS: PCP Internal Medicine; Visit Provider Nurse Practitioner Family | DX: G70.00 Myasthenia gravis without (acute) exacerbation (principal); G43.009 Migraine without aura, not intractable, without status migrainosus; Z79.52 Long term (current) use of systemic steroids; Z79.899 Other long term (current) drug therapy | CPT/HCPCS: 99212 ==

== ENCOUNTER 2023-03-04 10:39 | Outpatient (REF) | payer OTHER, SELFPAY ==
--- NOTE | ~2023-03-04 | US_ITS ---
EXAMINATION: US COMPLETE ABDOMEN WITH LIVER ELASTOGRAPHY CLINICAL INFORMATION: Abdominal pain COMPARISON: Previous CT of the abdomen and pelvis January 2017 TECHNIQUE: Real-time imaging of the abdominal viscera. Noninvasive ultrasound liver fibrosis assessment is performed using Mateusz ElastPQ point quantification shear wave elastography (2D-SWE) with a C5-2 MHz transducer. Multiple elastography samples are obtained. FINDINGS: PANCREAS: Normal. ABDOMINAL AORTA: The proximal, middle, and distal aortic segments are normal in caliber. INFERIOR VENA CAVA: Visualized portions are normal. LIVER: Liver echotexture is increased. There are hypoechoic areas in the liver probably representing areas of focal fatty sparing. The liver is enlarged. No biliary duct dilatation. The right lobe measures 22 cm in length. The left lobe measures 14 cm in length. Portal flow is normal/hepatopedal Shear wave liver elastography median stiffness is 1.6 m/s (reference: normal median stiffness is 1.3 m/s or less). IQR/median stiffness to assess sampling precision is 0.9 (reference: good quality data set is IQR/median stiffness of 0.15 or less). GALLBLADDER: Surgically removed COMMON BILE DUCT: Normal in caliber measuring 0.5 cm in diameter. RIGHT KIDNEY: Normal. No hydronephrosis. No renal calculi or focal parenchymal lesions. The kidney measures 12 cm in maximum dimension. LEFT KIDNEY: Small stone in the upper pole measuring 3 mm. No hydronephrosis. The kidney measures 13 cm in maximum dimension. SPLEEN: Slightly enlarged The spleen measures 14 cm in maximum dimension. 1.6 cm splenule FREE FLUID: None. US/US abdomen comp w elastography IMPRESSION: 1. Impression: Enlarged fatty liver. Slightly enlarged spleen. Small left renal stone. 2. Liver elastography: Adequate liver sampling. In the absence of other known clinical signs, rules out compensated advanced chronic liver disease. REFERENCE: Society of Radiologists in Ultrasound Liver Stiffness Thresholds (2020): LIVER STIFFNESS THRESHOLDS: *Liver Stiffness equal or less than 1.3 m/s: High probability of being normal. *Liver Stiffness less than 1.7 m/s: In the absence of other known clinical signs, rules out compensated advanced chronic liver disease. *Liver Stiffness 1.7-2.1 m/s: Suggestive of compensated advanced chronic liver disease but need further test for confirmation. *Liver Stiffness over 2.1 m/s: Rules in compensated advanced chronic liver disease. *Liver Stiffness over 2.4 m/s: Suggestive of clinically significant portal hypertension. QUALITY OF DATA SET: *IQR/Median value equal or less than 0.15 implies a quality data set. *IQR/Median value over 0.15 implies a poor quality data set. SIGNIFICANT CHANGE FROM PRIOR EXAM: Significant change if liver stiffness measurement is 10% or greater from prior exam. OTHER CONSIDERATIONS: The stage of liver fibrosis may be overestimated in the setting of acute hepatitis, liver inflammation, elevated liver function tests, hepatic vascular congestion, obstructive cholestasis, non-fasting state, and infiltrative diseases such as amyloidosis and lymphoma. In some patients with NAFLD, the liver stiffness thresholds for compensated advanced chronic liver disease may be lower. In causes other than viral hepatitis and NAFLD, liver stiffness thresholds are not well established.
[2023-03-04 12:15] LABS: MANUAL DIFF FLAG NO
[2023-03-04 12:25] LABS: Basophils Percent Auto 0.2 % (0-2); Eosinophils Absolute Auto 0.2 X10*3/uL (0.0-0.4); Eosinophils Percent Auto 2.4 % (0-4); Hematocrit 39.1 % (37.0-47.0); Imm Gran Abs Auto 0.03 X10*3/uL (0.00-0.03); Imm Gran Pct Auto 0.3 % (0.0-0.4); Lymphocytes Absolute Auto 4.4 X10*3/uL (1.2-4.9); Lymphocytes Percent Auto 43.3 % (20-40); Mean Corpuscular HGB Conc 33.2 g/dl (31.0-35.0); Mean Corpuscular Hemoglobin 28.6 pg (27.0-33.0); Mean Corpuscular Volume 85.9 fL (80.0-98.0); Mean Platelet Volume 10.3 fL (9.4-12.3); Monocytes Absolute Auto 0.6 X10*3/uL (0.1-1.2); Monocytes Percent Auto 6.3 % (2-11); Neutrophils Absolute Auto 4.8 x10*3/uL (2.0-8.3); Neutrophils Percent Auto 47.5 % (45-73); Platelet Count 289 X10*3/uL (160-400); Red Blood Count 4.55 X10*6/uL (4.20-5.50); Red Cell Distribution Width 13.1 % (11.0-16.0); White Blood Count 10.2 X10*3/uL (4.8-10.8)
[2023-03-04 13:01] LABS: Alanine Aminotransferase 35 U/L (0-31); Alkaline Phosphatase 55 U/L (39-117); Anion Gap 10 (12-20); Aspartate Amino Transferase 35 U/L (5-31); Bilirubin Total 0.8 mg/dL (0.0-1.0); Blood Urea Nitrogen 10 mg/dL (9-16); Calcium 9.1 mg/dL (8.4-10.2); Carbon Dioxide 28 mmol/L (22-29); Chloride 106 mmol/L (96-108); Cholesterol 236 mg/dL; Estimated Glomerular Filt Rate > 60; Glucose Fasting 95 mg/dL (60-99); HDL Cholesterol 32 mg/dL; Iron 44 mcg/dL (30-160); LDL Cholesterol Calculated 171 mg/dl; Percent Iron Saturation 16 % (15-50); Potassium 3.9 mmol/L (3.3-5.1); Sodium 140 mmol/L (135-145); Total Iron Binding Capacity 280 mcg/dL (228-428); Total Protein 7.7 g/dL (6.5-8.0); Triglycerides 168 mg/dL; Unsaturated Iron Binding 236 ug/dL
[2023-03-04 13:23] LABS: Creatinine Urine 298.44 mg/dL; Microalbum/Creatinine Ratio Ur 4.3 ug/mg cr
[2023-03-04 13:34] LABS: Vitamin B12 304 pg/mL (200-900); Vitamin D 25-OH Total 14.4 ng/mL (>30)
== END 2023-03-04 10:40 | disposition home or self-care (01) ==
LOC: HO.US 10:39
PROVIDERS: PCP Internal Medicine; Visit Provider Internal Medicine
DX: E11.9 Type 2 diabetes mellitus without complications (principal); R10.9 Unspecified abdominal pain; R19.7 Diarrhea, unspecified; E55.9 Vitamin D deficiency, unspecified; E53.8 Deficiency of other specified B group vitamins; E78.5 Hyperlipidemia, unspecified; D64.9 Anemia, unspecified
CPT/HCPCS: 36415; 76705; 76981; 80053; 80061; 82043; 82306; 82607; 82746; 83540; 85025

== ENCOUNTER → 2023-03-19 13:41 | Outpatient (BNVA) | payer OTHER, SELFPAY | PROVIDERS: PCP Internal Medicine; Visit Provider Hospitalist | DX: G70.00 Myasthenia gravis without (acute) exacerbation (principal); J45.909 Unspecified asthma, uncomplicated; E27.40 Unspecified adrenocortical insufficiency | CPT/HCPCS: 99212 ==

== ENCOUNTER 2023-04-02 12:09 | Outpatient (REF) | payer OTHER, SELFPAY ==
[2023-04-02 12:35] LABS: MANUAL DIFF FLAG NO
[2023-04-02 13:03] LABS: Basophils Percent Auto 0.2 % (0-2); Eosinophils Absolute Auto 0.1 X10*3/uL (0.0-0.4); Eosinophils Percent Auto 1.1 % (0-4); Hematocrit 38.7 % (37.0-47.0); Hemoglobin 12.9 g/dl (12.0-16.0); Imm Gran Abs Auto 0.05 X10*3/uL (0.00-0.03); Imm Gran Pct Auto 0.4 % (0.0-0.4); Lymphocytes Absolute Auto 2.7 X10*3/uL (1.2-4.9); Lymphocytes Percent Auto 21.7 % (20-40); Mean Corpuscular HGB Conc 33.3 g/dl (31.0-35.0); Mean Corpuscular Hemoglobin 28.4 pg (27.0-33.0); Mean Corpuscular Volume 85.2 fL (80.0-98.0); Mean Platelet Volume 9.9 fL (9.4-12.3); Monocytes Absolute Auto 0.5 X10*3/uL (0.1-1.2); Monocytes Percent Auto 4.2 % (2-11); Neutrophils Absolute Auto 9.1 x10*3/uL (2.0-8.3); Neutrophils Percent Auto 72.4 % (45-73); Platelet Count 345 X10*3/uL (160-400); Red Blood Count 4.54 X10*6/uL (4.20-5.50); Red Cell Distribution Width 12.8 % (11.0-16.0); White Blood Count 12.5 X10*3/uL (4.8-10.8)
[2023-04-02 13:40] LABS: Alanine Aminotransferase 33 U/L (0-31); Alkaline Phosphatase 54 U/L (39-117); Anion Gap 10 (12-20); Aspartate Amino Transferase 28 U/L (5-31); Blood Urea Nitrogen 14 mg/dL (9-16); Calcium 9.2 mg/dL (8.4-10.2); Carbon Dioxide 28 mmol/L (22-29); Chloride 104 mmol/L (96-108); Cholesterol 221 mg/dL; Estimated Glomerular Filt Rate > 60; Glucose Fasting 154 mg/dL (60-99); Glucose Random 154 mg/dL (60-115); HDL Cholesterol 31 mg/dL; Iron 62 mcg/dL (30-160); LDL Cholesterol Calculated 155 mg/dl; Percent Iron Saturation 24 % (15-50); Potassium 4.1 mmol/L (3.3-5.1); Sodium 138 mmol/L (135-145); Total Iron Binding Capacity 260 mcg/dL (228-428); Total Protein 7.5 g/dL (6.5-8.0); Triglycerides 176 mg/dL; Unsaturated Iron Binding 198 ug/dL
[2023-04-02 13:49] LABS: Appearance Urine Clear; Color Urine Yellow; Glucose Urine UA Negative (Negative); Leukocyte Esterase Urine Negative (Negative); Nitrite Urine Negative (Negative); Specific Gravity - Urine 1.025 (1.005-1.025); Urine Blood Negative (Negative); Urine Ketones Negative (Negative); Urine Protein Negative (Neg-Trace)
[2023-04-02 13:51] LABS: Vitamin D 25-OH Total 20.8 ng/mL (>30)
[2023-04-02 14:12] LABS: Creatinine Urine 159.06 mg/dL; Microalbum/Creatinine Ratio Ur 11.3 ug/mg cr
[2023-04-02 14:12] LABS: Folate 12.2 ng/mL (> or = 4.0); Vitamin B12 302 pg/mL (200-900)
== END 2023-04-02 12:10 | disposition home or self-care (01) ==
LOC: HO.LAB 12:09
PROVIDERS: PCP Internal Medicine; Visit Provider Nurse Practitioner Family
DX: R10.9 Unspecified abdominal pain (principal); G70.00 Myasthenia gravis without (acute) exacerbation; D64.9 Anemia, unspecified; E78.5 Hyperlipidemia, unspecified; E11.9 Type 2 diabetes mellitus without complications; E55.9 Vitamin D deficiency, unspecified; E53.8 Deficiency of other specified B group vitamins
CPT/HCPCS: 36415; 80053; 80061; 81003; 82043; 82306; 82607; 82746; 83540; 85025

== ENCOUNTER 2023-04-06 09:51 | Outpatient (REF) | payer OTHER, SELFPAY ==
[2023-04-06 11:28] LABS: Leukocytes Stool Qualitative NEGATIVE (NEGATIVE)
== END 2023-04-06 09:52 | disposition home or self-care (01) ==
LOC: HO.LNP 09:51
PROVIDERS: Nurse Practitioner Family; Visit Provider Internal Medicine
DX: R19.7 Diarrhea, unspecified (principal); G47.00 Insomnia, unspecified
CPT/HCPCS: 89055

== ENCOUNTER → 2023-04-14 15:07 | Outpatient (REF) | payer OTHER, SELFPAY | LOC: HO.SL 15:07 | PROVIDERS: PCP Internal Medicine; Visit Provider Hospitalist | DX: G47.33 Obstructive sleep apnea (adult) (pediatric) (principal) | CPT/HCPCS: 95806 ==

== ENCOUNTER 2023-04-26 10:50 | Outpatient (REF) | payer OTHER, SELFPAY | END 2023-04-26 10:51 | disposition home or self-care (01) | LOC: HO.MDS 10:50 | PROVIDERS: Visit Provider Nurse Practitioner Family | DX: G70.00 Myasthenia gravis without (acute) exacerbation (principal) | CPT/HCPCS: 96365; 96366; J1569 ==

== ENCOUNTER 2023-04-27 10:44 | Outpatient (REF) | payer OTHER, SELFPAY | END 2023-04-27 10:45 | disposition home or self-care (01) | LOC: HO.MDS 10:44 | PROVIDERS: Visit Provider Nurse Practitioner Family | DX: G70.00 Myasthenia gravis without (acute) exacerbation (principal) | CPT/HCPCS: 96365; 96366; 96375; J1569; J1885 ==

== ENCOUNTER 2023-04-29 10:45 | Outpatient (REF) | payer OTHER, SELFPAY | END 2023-04-29 10:46 | disposition home or self-care (01) | LOC: HO.MDS 10:45 | PROVIDERS: Visit Provider Nurse Practitioner Family | DX: G70.00 Myasthenia gravis without (acute) exacerbation (principal) | CPT/HCPCS: 96365; 96366; 96375; J1569; J1885 ==

== ENCOUNTER 2023-05-25 10:58 | Outpatient (AMB) | payer OTHER, SELFPAY ==
[2023-05-25 11:01] VITALS: BP 122/76; BMI 46.1
--- NOTE | 2023-05-25 11:01 | MHC.OFFVIS ---
Intake Vital Signs 05/25/23 11:01 Height 5 ft 5 in Weight 277 lb BMI 46.1 BP 122/76 Blood Pressure Location Lt brachial Position Sitting Intake Visit Reasons: irregular period Allergies erythromycin base Allergy (Intermediate, Verified 05/25/23 11:01) Swelling levofloxacin [From LEVAQUIN] Allergy (Intermediate, Verified 05/25/23 11:01) RASH AND HIVES Penicillins [PENICILLINS] Allergy (Intermediate, Verified 05/25/23 11:01) Swelling Medication List - Last Reconciled 05/25/23 by Patty Patel CNM acetaminophen 1,000mg 15 minutes prior to IVIG infusion and then q 6 hrs prn orally PRN; 1,000mg 5 days albuterol sulfate 90 mcg/actuation 2 inhalations inhalation QID PRN albuterol sulfate 2.5 mg (3 mL) inhalation QID PRN alprazolam 0.5 mg PO DAILY PRN 2 days atorvastatin 10 mg PO BEDTIME 90 days blood sugar diagnostic (FreeStyle Lite Strips) As directed three times a day blood-glucose meter (FreeStyle Lite Meter kit) As directed 3x/day budesonide-formoterol 160-4.5 mcg/actuation (Symbicort) 2 puffs inhalation BID 30 days cholecalciferol (vitamin D3) 25 mcg PO DAILY 90 days cyanocobalamin (vitamin B-12) 1,000 mcg PO DAILY 30 days diclofenac sodium 75 mg PO BID PRN 10 days diphenhydramine HCl (Benadryl) 25mg 15 minutes before IVIG infusion and then q 6 hours prn orally PRN; 5 days furosemide (Lasix) 20 mg PO DAILY 10 days ketorolac 30 mg (2ml) IV 15 minutes prior to IVIG infusion, and then q 6 hrs prn (NTE 120mg per 24 hrs) intravenously every 6 to 8 hours PRN; 5 days magnesium oxide 400 mg PO BEDTIME 30 days mycophenolate mofetil 1,000 mg (2 x 500 mg) PO Q12H 30 days nebulizers As directed omeprazole 40 mg PO DAILY ondansetron 8 mg PO Q12H PRN 30 days prednisone 10 mg PO DAILY 30 days prednisone 60mg x's 3day, 50mg x's 3day, 40mg x's 3days, 30mg x's 3 days, 20mg x's 3 days, then resume 10mg qd orally daily; 21 days pyridostigmine bromide 60 mg PO BID 30 days riboflavin (vitamin B2) 400 mg PO DAILY 30 days rizatriptan 5 - 10 mg (0.5 - 1 x 10 mg) PO Q2H PRN 21 days semaglutide (Ozempic) 0.25 mg (0.2 mL) subcut QWEEK 90 days sucralfate (Carafate) 1 g PO BID 30 days sumatriptan succinate 0 mg PO Is last menstrual period known: Yes Last menstrual period: 05/15/23 HPI irregular period HPI Details Patient is here to discuss irregular periods this is the 1st time her. Has been light and irregular and not normal this month she got her. Normally last month but this month feels different and she says it has never been like this before. Visit conducted in [place]. Prior to the visit entire review of last 4 visits within the system with various providers was done including a consultation from Maternal- Medicine that was sent to Neurology that was extremely comprehensive and complete regarding patient's full medical history medications and her status with regards to her diabetes and her myasthenia gravis and medications that she is on that are a contraindication to because of their teratogenic effects. Since the patient had cited that she wanted to get at the previous visit I went over this in great detail. She tells me that she no longer wishes to get but she was unclear as to how she is accomplishing this. Discussed her irregular periods and whether not she had gained weight and she said she had but she goes up and down because of the myasthenia gravis. She also says the medications and the myasthenia gravis make her break out when she is in the sun. She says she is using a sunscreen that her mother sends her from [place] with an SPF factor of 100 but it does not work for her. In discussing her periods I discussed that often contraceptive methods with hormones are used to have some affect done Women's cycles as well as contraception but she shook her finger and her head and said absolutely not she was not interested in anything for contraception she does not believe in it and she does not like it. And she is not interested in using it and she repeatedly shook her finger to emphasize this point. I inquired as to when she was speaking with the neurology team again the next time and she said she had an appointment on the of this month and she sees a dctor Gerri, who she says is of neurologist through the [facility] but she sees that person in [place]. In looking through the records I do not see that care provider's name listed in any of the provider notes through 2021. I asked her explicitly to make sure that she goes over the recommendations from Maternal- Medicine with the doctor that she sees so that she is very clear about the recommendations, has a more complete discussion, and that perhaps with further discussion of elliott understanding of the importance of the issues raised is better understood. I also recommended that she really be seen at [facility] for these issues as they did place a referral to their complex contraception service there because of all of her medical issues that it things needed to be closely coordinated and if there was ever any chance of it would need to be managed 100% there and not at all here as she is much too high risk to receive care here. I also did discuss that very often weight gain can contribute to periods being irregular or be missing. But again the solutions would involve various hormonal methods of contraception which she said she was not interested in though she did except a brochure in [place] about Mirena IUD. I did explain it briefly to her. In addition she has an abnormal Pap smear which she was referred for colposcopy for and missed that visit and she says she did not get a call about another appointment however it appears that she did so that will need to be rescheduled. [facility] Medical History Asthma CAD (coronary artery disease) Chronic cough Chronic diarrhea COVID-19 vaccine series completed DM2 (diabetes mellitus, type 2) GERD (gastroesophageal reflux disease) Lower back pain Morbid obesity Myasthenia gravis Obesity due to excess calories MYNOR (obstructive sleep apnea) Sleep apnea Surgical History History of cholecystectomy History of esophagogastroduodenoscopy (EGD) History of tonsillectomy and adenoidectomy S/P thymectomy Family History Father Hypertension Diabetes Mother Diabetes Hypertension Maternal Grandfather Diabetes Hypertension Bone cancer Maternal Aunt Breast cancer Maternal Grandmother Diabetes Hypertension CVD (cardiovascular disease) Other Mental health disorder Social History Housing: Apartment Are you a primary career resource specialist to a significant other at home: No Do you presently have visiting nurse or other home services: Yes Alcohol intake: never Patient Tobacco Use Status: Never used Tobacco e-Cigarette/Vaping Use: Never Used Second Hand Smoke Exposure: No service: No Current occupational status: employed Current occupational exposures/hazards: No Cognitive needs: Yes (walker) Hearing needs: No Vision needs: No Female Reproductive History Menstrual Age of Menarche: 11 Date of last menstrual period: 05/15/23 Total pregnancies: 2 Number of Living Children: 2 Physical Exam Vital Signs: Last Vital Signs BP 122/76 05/25/23 11:01 BMI result Body Mass Index 46.1 Results Reviewed Results Reviewed: Name:?Denisse Desai Age/Sex: 30/F Attending: Patty Patel CNM : 1990 Submitted by: Patty Patel CNM Copies to: Nemo Lockett MD MR #: [id number] ? Status: DEP REF Collected: 08/28/21 Location: [facility] Received: 09/02/21 Interpretation ABNORMAL PAP TEST. Satisfactory for evaluation, with mildly dysplastic squamous cells / HPV cytopathic change (JOSY 1; low grade squamous intraepithelial lesion). No endocervical cells seen. Coccobacilli consistent with shift in vaginal zachary. Clinical Information LMP: 08/18/21 Previous PAP test: 2017, WNL Material Received ThinPrep-Cervical Copies To ?? Patty Patel CNM ?? [address] ?? [place] [id number] ?? [phone] ?? Nemo Lockett MD ?? [address] ?? [place] [address] ?? [phone] Electronically Signed By: Evangelist Dias MD ? 09/16/21 0819 The Pap Test is a screening procedure with the inherent possibility of both false negative and false positive results.? Results should be interpreted in the context of historic and current clinical fi Name:?Denisse Desai Age/Sex: 31/F Attending: Patty Patel CNM : 1990 Submitted by: Patty Patel CNM Copies to: MR #: [id number] ? Status: DEP REF Collected: 09/01/22 Location: [facility] Received: 09/02/22 Interpretation General Category:?? Negative for intraepithelial lesion/malignancy. Adequacy:? No endocervical cells seen. Interpretation:? ?? Inflammation with associated cellular changes. Shift in vaginal zahcary. HPV mRNA E6/E7:? DETECTED This assay detects E6/E7 viral messenger RNA (mRNA) from 14 high-risk HPV types (16, 18, 31, 33, 35, 39, 45, 51, 52, 56, 58, 59, 66, 68) HPV Type 16 RNA:? Not Detected HPV Type 18/45 RNA: ? Not Detected HPV testing performed by [facility], [place], [place].? See reference laboratory portion of the EMR for entire report. Clinical Information LMP: 08/03/22 Previous PAP test: 09/02/21, Abnormal Other history: JOSY 1 Material Received ThinPrep-Cervical Electronically Signed By: Evangelist Dias MD ? 09/09/22 1157 The Pap Test is a screening procedure with the inherent possibility of both false negative and false positive results.? Results should be interpreted in the context of historic and current clinical findings.? R Assessment & Plan Assessment & Plan (1) Migraine without aura: Code(s): G43.009 - Migraine without aura, not intractable, without status migrainosus (2) control counseling: Code(s): Z30.09 - Encounter for other general counseling and advice on contraception (3) Myasthenia gravis: Code(s): G70.00 - Myasthenia gravis without (acute) exacerbation (4) Diabetes mellitus: Code(s): E11.9 - Type 2 diabetes mellitus without complications Qualifiers: Diabetes mellitus complication status: without complication Diabetes mellitus senior living insulin use: without terminal carman use Diabetes mellitus type: type 2 Qualified Code(s): E11.9 - Type 2 diabetes mellitus without complications (5) Adrenal insufficiency: Code(s): E27.40 - Unspecified adrenocortical insufficiency (6) Cervical cancer screening: Comment: 09/02/2021 Pap is JOSY 1 with HPV related changes no HPV code testing was done. 09/01/2022= pap=neg, HPV equals positive. needs colposcopy. Code(s): Z12.4 - Encounter for screening for malignant neoplasm of cervix (7) Cervical cancer screening: Comment: 08/28/21 pap= CIN1/LGSIL, w hpv cytopathic changes- [facility] rec colpo.- was referred for colpo, but it did not occur.. pap done at visit 09/01/22, needs colpo again to be r/s'd. consider gardisil? ( pt is interested) Code(s): Z12.4 - Encounter for screening for malignant neoplasm of cervix (8) Use of medication with teratogenic potential in female of reproductive age: Code(s): Z79.899 - Other senior living (current) drug therapy Plan Patient is here to discuss irregular periods this is the 1st time her period Has been light and irregular and not normal this month. she got her period Normally last month but this month feels different and she says it has never been like this before. Visit conducted in [place]. Prior to the visit entire review of last 4 visits within the system with various providers was done including a consultation from Maternal- Medicine that was sent to Neurology that was extremely comprehensive and complete regarding patient's full medical history medications and her status with regards to her diabetes and her myasthenia gravis and medications that she is on that are a contraindication to because of their teratogenic effects. Since the patient had cited that she wanted to get at the previous visit I went over this in great detail. She tells me that she no longer wishes to get but she was unclear as to how she is accomplishing this. Discussed her irregular periods and whether not she had gained weight and she said she had but she goes up and down because of the myasthenia gravis. She also says the medications and the myasthenia gravis make her break out when she is in the sun. She says she is using a sunscreen that her mother sends her from [place] with an SPF factor of 100 but it does not work for her. In discussing her periods I discussed that often contraceptive methods with hormones are used to have some affect done Women's cycles as well as contraception but she shook her finger and her head and said absolutely not she was not interested in anything for contraception she does not believe in it and she does not like it. And she is not interested in using it and she repeatedly shook her finger to emphasize this point. I inquired as to when she was speaking with the neurology team again the next time and she said she had an appointment on the of this month and she sees a aj Talley, who she says is of neurologist through the [facility] but she sees that person in [place]. In looking through the records I do not see that care provider's name listed in any of the provider notes through 2021. I asked her explicitly to make sure that she goes over the recommendations from Maternal- Medicine with the doctor that she sees so that she is very clear about the recommendations, has a more complete discussion, and that perhaps with further discussion of elliott understanding of the importance of the issues raised is better understood. I also recommended that she really be seen at [facility] for these issues as they did place a referral to their complex contraception service there because of all of her medical issues that it things needed to be closely coordinated and if there was ever any chance of it would need to be managed 100% there and not at all here as she is much too high risk to receive care here. I also did discuss that very often weight gain can contribute to periods being irregular or be missing. But again the solutions would involve various hormonal methods of contraception which she said she was not interested in though she did except a brochure in [place] about Mirena IUD. I did explain it briefly to her. In addition she has an abnormal Pap smear which she was referred for colposcopy for and missed that visit and she says she did not get a call about another appointment however it appears that she did so that will need to be rescheduled. Quality Reporting (2019) Adult ([facility] [address]/06/69) Smoking risk assessment performed?: Yes Patient Tobacco Use Status: Never used Tobacco Coding Level of Care Code Est Pt Level 3 (76726) Diagnoses Migraine without aura G43.009 control counseling Z30.09 Myasthenia gravis G70.00 Diabetes mellitus E11.9 Diabetes mellitus complication status: without complication Diabetes mellitus senior living insulin use: without terminal carman use Diabetes mellitus type: type 2 Adrenal insufficiency E27.40 Cervical cancer screening Z12.4 Use of medication with teratogenic potential in female of reproductive age Z79.899 Time Spent (min) 35 Comment 100% of the visit spent reviewing history and importance of the recommendations,,,,
== END 2023-05-25 12:19 | disposition home or self-care (01) ==
LOC: HO.HWS 10:58
PROVIDERS: PCP Internal Medicine; Visit Provider Advanced Practice Midwife
DX: G43.009 Migraine without aura, not intractable, without status migrainosus (principal); Z30.09 Encounter for other general counseling and advice on contraception; G70.00 Myasthenia gravis without (acute) exacerbation; E11.9 Type 2 diabetes mellitus without complications; E27.40 Unspecified adrenocortical insufficiency; Z12.4 Encounter for screening for malignant neoplasm of cervix; Z79.899 Other long term (current) drug therapy
CPT/HCPCS: 99213

== ENCOUNTER → 2023-05-25 10:58 | Outpatient (BNVA) | payer OTHER, SELFPAY | PROVIDERS: PCP Internal Medicine; Visit Provider Advanced Practice Midwife | DX: N92.6 Irregular menstruation, unspecified (principal); G43.009 Migraine without aura, not intractable, without status migrainosus; G47.00 Insomnia, unspecified; E11.9 Type 2 diabetes mellitus without complications; E27.40 Unspecified adrenocortical insufficiency | CPT/HCPCS: 99212 ==

== ENCOUNTER 2023-06-02 14:15 | Outpatient (AMB) | payer OTHER, SELFPAY ==
[2023-06-02 14:23] VITALS: BP 100/72; BMI 46.5
--- NOTE | 2023-06-02 14:23 | MHC.OFFVIS ---
Intake Vital Signs 06/02/23 14:23 Height 5 ft 5 in Weight 279 lb 8 oz BMI 46.5 BP 100/72 Blood Pressure Location Lt brachial Position Sitting Pulse Source Pulse Oximeter Oxygen Delivery Method Room Air Intake Visit Reasons: 3 mo f/u - Myastenia gravis Intake Note: Pt presents as a 3 month f/u. Pt states no concerns. Outside Maintenance Worker Required: Yes Outside Maintenance Worker Name: [id number] [id number] ([id number]) Allergies erythromycin base Allergy (Intermediate, Verified 06/02/23 14:29) Swelling levofloxacin [From LEVAQUIN] Allergy (Intermediate, Verified 06/02/23 14:29) RASH AND HIVES Penicillins [PENICILLINS] Allergy (Intermediate, Verified 06/02/23 14:29) Swelling HPI HPI Comments History of Present Illness Details 32-yr-old female presents for f/u visit. Pt did the IVIG- only tolerated 2 sessions. States her MG s/s are stable right now. After the IVIG she has developed a red, itchy rash on both arms w/o swelling, so we started her on Prednisone taper. She has had this reaction to IVIG in the past. Pt called us a few days ago reporting that she was - thinks 5-6 weeks. She had stopped all of her medications. She states during her last , she had been dx'd w/ MG. She denies having any MG flare-ups, but she states she lost the due to her medication use. She has not had any recent bothersome migraines. [facility] Medical History (Updated 06/02/23 @ 15:28 by NAYAN Chacon) Asthma CAD (coronary artery disease) Chronic cough Chronic diarrhea COVID-19 vaccine series completed DM2 (diabetes mellitus, type 2) GERD (gastroesophageal reflux disease) Lower back pain Morbid obesity Myasthenia gravis Obesity due to excess calories MYNOR (obstructive sleep apnea) Sleep apnea Surgical History History of cholecystectomy History of esophagogastroduodenoscopy (EGD) History of tonsillectomy and adenoidectomy S/P thymectomy Family History Father Hypertension Diabetes Mother Diabetes Hypertension Maternal Grandfather Diabetes Hypertension Bone cancer Maternal Aunt Breast cancer Maternal Grandmother Diabetes Hypertension CVD (cardiovascular disease) Other Mental health disorder Social History Housing: Apartment Are you a primary career development coordinator/teacher to a significant other at home: No Do you presently have visiting nurse or other home services: Yes Alcohol intake: never Patient Tobacco Use Status: Never used Tobacco e-Cigarette/Vaping Use: Never Used Second Hand Smoke Exposure: No service: No Current occupational status: employed Current occupational exposures/hazards: No Cognitive needs: Yes (walker) Hearing needs: No Vision needs: No Female Reproductive History Menstrual Age of Menarche: 11 Review of Systems Const All systems reviewed & are unremarkable except as noted in HPI and below Physical Exam Vital Signs: Last Vital Signs BP 100/72 06/02/23 14:23 Oxygen Delivery Method Room Air 06/02/23 14:23 BMI result Body Mass Index 46.5 Const General: cooperative and no acute distress Orientation/consciousness: patient oriented x3 HEENT Head: Yes normocephalic Resp Effort & Inspection: normal respiratory effort and able to speak in complete sentences Skin Other: Mild faint diffuse rash across bilateral arms Neuro General: patient oriented x3, gait normal and CN's II-XI intact bilaterally Cognition (Neuro): normal cognition Motor exam (neuro): 5/5 motor strength present throughout Psych Appearance: grossly normal Mental Status: mental status grossly normal Speech and movement: Normal speech and movement present Affect: normal affect Attitude: cooperative Thought process: Normal thought process present Thought content: Normal thought content present Insight: Good insight present (Psych) Judgement: Good judgement present (Psych) Assessment & Plan Assessment & Plan (1) Myasthenia gravis: Code(s): G70.00 - Myasthenia gravis without (acute) exacerbation (2) Migraine without aura: Code(s): G43.009 - Migraine without aura, not intractable, without status migrainosus Plan Check serum HCG today- lab slip given to pt. Will f/u w/ OB- ? if pt can be seen early- she is nervous about the and her med regiemn- however she has stopped all emds. She can hold cellcept, prednisone. For migraine She can continue Magnesium 400mg qhs Tylenol prn. May use Sumatriptan - sparingly. f/u in 4 weeks- tele Orders: Orders HCG Quantitative Today N91.2 - Amenorrhea, unspecified, Z79.899 - Other correction (current) drug therapy Quality Reporting (2019) Adult ([facility] 138[address]/06/69) Smoking risk assessment performed?: Yes Patient Tobacco Use Status: Never used Tobacco Coding Level of Care Code Est Pt Level 4 (28614) Diagnoses Myasthenia gravis G70.00 Migraine without aura G43.009
== END 2023-06-02 15:08 | disposition home or self-care (01) ==
PROVIDERS: Visit Provider Nurse Practitioner Family
DX: G70.00 Myasthenia gravis without (acute) exacerbation (principal); G43.009 Migraine without aura, not intractable, without status migrainosus
CPT/HCPCS: 99214

== ENCOUNTER → 2023-06-02 14:15 | Outpatient (BNVA) | payer OTHER, SELFPAY | PROVIDERS: Visit Provider Nurse Practitioner Family | DX: G70.00 Myasthenia gravis without (acute) exacerbation (principal); G43.009 Migraine without aura, not intractable, without status migrainosus | CPT/HCPCS: 99212 ==

== ENCOUNTER → 2023-06-29 15:27 | Outpatient (BNVA) | payer OTHER, SELFPAY | PROVIDERS: PCP Internal Medicine; Visit Provider Nurse Practitioner Family | DX: N91.2 Amenorrhea, unspecified (principal); Z79.899 Other long term (current) drug therapy ==

== ENCOUNTER 2023-06-29 15:29 | Outpatient (AMB) | payer OTHER, SELFPAY ==
--- NOTE | 2023-06-29 15:28 | MHC.OFFVIS ---
Intake Intake Visit Reasons: 1m follow up Myastenia gravis - Confirmed Intake Note: Pt presents today for followup , pt has no issues to report to MD. Allergies erythromycin base Allergy (Intermediate, Verified 06/29/23 15:29) Swelling levofloxacin [From LEVAQUIN] Allergy (Intermediate, Verified 06/29/23 15:29) RASH AND HIVES Penicillins [PENICILLINS] Allergy (Intermediate, Verified 06/29/23 15:29) Swelling Medication List - Last Reconciled 06/29/23 by NAYAN Chacon acetaminophen OTC only albuterol sulfate 90 mcg/actuation 2 inhalations inhalation QID PRN albuterol sulfate 2.5 mg (3 mL) inhalation QID PRN blood sugar diagnostic (FreeStyle Lite Strips) As directed three times a day blood-glucose meter (FreeStyle Lite Meter kit) As directed 3x/day budesonide-formoterol 160-4.5 mcg/actuation (Symbicort) 2 puffs inhalation BID 30 days cholecalciferol (vitamin D3) 25 mcg PO DAILY 90 days cyanocobalamin (vitamin B-12) 1,000 mcg PO DAILY 30 days fluticasone propionate 50 mcg/actuation (Flonase Allergy Relief) 1 spray intranasal BID 30 days nebulizers As directed ondansetron 8 mg PO Q12H PRN 30 days PNV #[id number] 30 mg iron-10 mg iron-1 mg 1 cap PO DAILY 90 days pyridostigmine bromide 60 mg PO BID 30 days riboflavin (vitamin B2) 400 mg PO DAILY 30 days HPI HPI Comments History of Present Illness Details 32-yr-old female presents for f/u televisit. crown attacher, Allison ([facility]) assisted during her visit. Pt reports that she had her viability ultrasound which was normal. Pt states that her OB told her that she can resume her mestinon and the IVIG. She states that she is feeling MG symptoms of increased weakness. She will be starting insulin tx for her DM. [facility] Medical History Asthma CAD (coronary artery disease) Chronic cough Chronic diarrhea COVID-19 vaccine series completed DM2 (diabetes mellitus, type 2) GERD (gastroesophageal reflux disease) Lower back pain Morbid obesity Myasthenia gravis Obesity due to excess calories MYNOR (obstructive sleep apnea) Sleep apnea Surgical History History of cholecystectomy History of esophagogastroduodenoscopy (EGD) History of tonsillectomy and adenoidectomy S/P thymectomy Family History Father Hypertension Diabetes Mother Diabetes Hypertension Maternal Grandfather Diabetes Hypertension Bone cancer Maternal Aunt Breast cancer Maternal Grandmother Diabetes Hypertension CVD (cardiovascular disease) Other Mental health disorder Social History Housing: Apartment Are you a primary child care centre director to a significant other at home: No Do you presently have visiting nurse or other home services: Yes Alcohol intake: never Patient Tobacco Use Status: Never used Tobacco e-Cigarette/Vaping Use: Never Used Second Hand Smoke Exposure: No service: No Current occupational status: employed Current occupational exposures/hazards: No Cognitive needs: Yes (walker) Hearing needs: No Vision needs: No Female Reproductive History Menstrual Age of Menarche: 11 Physical Exam Const General: cooperative and no acute distress Orientation/consciousness: patient oriented x3 Resp Effort & Inspection: normal respiratory effort and able to speak in complete sentences Neuro General: patient oriented x3 Cognition (Neuro): normal cognition Psych Mental Status: mental status grossly normal Affect: normal affect Attitude: cooperative Thought process: Normal thought process present Assessment & Plan Assessment & Plan (1) Myasthenia gravis: Code(s): G70.00 - Myasthenia gravis without (acute) exacerbation (2) : Code(s): Z34.90 - Encounter for supervision of normal , unspecified, unspecified trimester Plan Resume Mestinon at 30mg qid- if ineffective, we can increase dose. Pt will likely need IV Mestinon during labor. If she has bothersome MG s/s, we can reconsider IVIG- however pt often has adverse effects from IVIG- rash and headaches. I would avoid Prednisone at this point unless pt's MG s/s become severe- as corticosteroids have been sown to cause cleft lip/palate and intrauterine growth restriction. f/u in 4-6 weeks (tele if needed) or sooner prn. Medications: Changed From acetaminophen 1,000mg 15 minutes prior to IVIG infusion and then q 6 hrs prn orally PRN; 1,000mg 5 days 40 tabs 0RF pain To acetaminophen OTC only pain From pyridostigmine bromide 60 mg PO BID 30 days 60 tabs 4RF G70.00 - Myasthenia gravis without (acute) exacerbation To pyridostigmine bromide 30 mg (1/2 x 60 mg) PO QID 30 days 60 tabs 4RF G70.00 - Myasthenia gravis without (acute) exacerbation Quality Reporting (2019) Adult ([facility] 13801/06/69) Smoking risk assessment performed?: Yes Patient Tobacco Use Status: Never used Tobacco Telehealth Telehealth Location of provider rendering services: practice address Location of patient: address on file Patient Identification confirmed using: Name, : Yes Telehealth method: voice only Patient verbally consented to treatment: Yes Patient verbally consented to billing insurance company: Yes Patient informed of any privacy concerns related to visit: Yes Minutes spent on Phone/Video with Pt.: 12 Coding Level of Care Code Tele Est Pt Level 4 (91545) Diagnoses Myasthenia gravis G70.00 Z34.90 Time Spent (min) 12
== END 2023-06-29 16:36 | disposition home or self-care (01) ==
PROVIDERS: PCP Internal Medicine; Visit Provider Nurse Practitioner Family
DX: G70.00 Myasthenia gravis without (acute) exacerbation (principal); Z33.1 Pregnant state, incidental
CPT/HCPCS: 99214

== ENCOUNTER 2023-08-11 13:41 | Outpatient (AMB) | payer OTHER, SELFPAY ==
[2023-08-11 13:55] VITALS: BP 126/82; BMI 48.4
--- NOTE | 2023-08-11 13:55 | MHC.PC.OV ---
Vital Signs 08/11/23 13:55 Height 5 ft 5 in Weight 291 lb BMI 48.4 BP 126/82 Blood Pressure Location Lt brachial Position Sitting Intake Visit Reasons: dm Intake Note: Patient here for a follow up DM [employer] Required: No Accompanied by: Self / Same As Patient Allergies erythromycin base Allergy (Intermediate, Verified 08/11/23 14:20) Swelling levofloxacin [From LEVAQUIN] Allergy (Intermediate, Verified 08/11/23 14:20) RASH AND HIVES Penicillins [PENICILLINS] Allergy (Intermediate, Verified 08/11/23 14:20) Swelling Medication List - Last Reconciled 08/11/23 by Nemo Ortiz MD acetaminophen OTC only albuterol sulfate 90 mcg/actuation 2 inhalations inhalation QID PRN albuterol sulfate 2.5 mg (3 mL) inhalation QID PRN aspirin mg PO blood sugar diagnostic (FreeStyle Lite Strips) As directed three times a day blood-glucose meter (FreeStyle Lite Meter kit) As directed 3x/day budesonide-formoterol 160-4.5 mcg/actuation (Symbicort) 2 puffs inhalation BID 30 days fluticasone propionate 50 mcg/actuation (Flonase Allergy Relief) 1 spray intranasal BID 30 days insulin aspart U-100 subcut insulin glargine (Lantus Solostar U-100 Insulin) 44 units subcut nebulizers As directed pen needle, diabetic (BD Ultra-Fine Mini Pen Needle) As directed pyridostigmine bromide 30 mg (1/2 x 60 mg) PO QID 30 days Tobacco use date assessed: 11/23/22 Dental Screening Dental Screen Date: 08/11/23 Did you have a dental visit in the last 12 months?: Yes Did you have a dental problem in the last 6 months where you did not have access to dental care?: No Was dental information given to patient?: Patient has dentist HPI HPI Comments History of Present Illness Details This is a 32-year-old female with diabetes mellitus type 2, myasthenia gravis, asthma and hyperlipidemia that comes today for follow-up on her conditions. She is 15 weeks . A1c within goal. Myasthenia gravis follow by Neurology. Has been feeling short of breath for her asthma and use rescue inhaler for now. Will call pulmonology. LDL not on goal but statins are contraindicated in . Was advised to diet and exercise. [facility] Medical History (Updated 08/11/23 @ 15:39 by Nemo Ortiz MD) Chronic cough MYNOR (obstructive sleep apnea) COVID-19 vaccine series completed Chronic diarrhea Obesity due to excess calories DM2 (diabetes mellitus, type 2) Myasthenia gravis Asthma Sleep apnea GERD (gastroesophageal reflux disease) Morbid obesity CAD (coronary artery disease) Lower back pain Surgical History History of esophagogastroduodenoscopy (EGD) S/P thymectomy History of tonsillectomy and adenoidectomy History of cholecystectomy Family History Father Hypertension Diabetes Mother Diabetes Hypertension Maternal Grandfather Diabetes Hypertension Bone cancer Maternal Aunt Breast cancer Maternal Grandmother Diabetes Hypertension CVD (cardiovascular disease) Other Mental health disorder Social History Housing: Apartment Are you a primary primary care physician to a significant other at home: No Do you presently have visiting nurse or other home services: Yes Alcohol intake: never Patient Tobacco Use Status: Never used Tobacco e-Cigarette/Vaping Use: Never Used Second Hand Smoke Exposure: No service: No Current occupational status: unemployed Current occupational exposures/hazards: No Cognitive needs: Yes (walker) Hearing needs: No Vision needs: No Female Reproductive History Menstrual Age of Menarche: 11 Questionnaire Thrive Questionnaire Date Thrive assessed: 11/23/22 ALLYSSA-7 AMB Questionnaire ALLYSSA-7 Date ALLYSSA - 7 assessed: 11/23/22 Source: Developed by Drs. Devon Hamilton, Joi Bingham, Edgardo Martinez and colleagues, with an educational elver from [employer]. Review of Systems Const All systems reviewed & are unremarkable except as noted in HPI and below Eyes Reports no additional complaints, Denies change in vision and Denies other visual disturbances Card Denies chest pain at rest, Denies chest pain with activity, Denies edema, Denies irregular heart rhythm, Denies claudication, Denies dyspnea, Denies dyspnea on exertion, Denies orthopnea, Denies paroxysmal nocturnal dyspnea and Denies slow heart rate Resp Denies cough, Denies dyspnea and Denies dyspnea on exertion GI Denies abdominal pain, Denies change in bowel habits, Denies excessive flatus, Denies nausea and Denies vomiting Denies urinary incontinence, Denies urinary hesitancy and Denies urinary urgency Musc Denies abnormal gait, Denies atrophy, Denies deformity and Denies limited range of motion Skin/Breast Denies bleeding lesions, Denies changing lesions and Denies rash Neuro Denies abnormal gait and Denies lack of coordination Physical exam (Primary Care) Vital Signs: Last Vital Signs BP 126/82 08/11/23 13:55 BMI result Body Mass Index 48.4 Tobacco/Smoking Status: Tobacco use Status Tobacco use date assessed 11/23/22 08/11/23 14:02 Patient Tobacco Use Status Never used Tobacco 08/11/23 14:02 e-Cigarette/Vaping Use Never Used 08/11/23 14:02 Thrive Assessment: Date of Thrive Assessment Date Thrive assessed 11/23/22 08/11/23 14:02 Eyes General: appearance normal, both eyes and all related structures Eyelids: Yes eyelids normal Conjunctivae: conjunctivae normal Neck Neck: Yes normal visual inspection and Yes supple Resp Effort & Inspection: normal respiratory effort Auscultation: clear to auscultation bilaterally Cardio Jugular venous distension: no JVD Rate: regular rate Rhythm: regular rhythm Heart sounds: S1 normal heart sound present and S2 normal heart sound present Extrem General: Yes full ROM Results AMB Hemoglobin A1c AMB Hemoglobin A1c 6.9 % Last Edit by TABITHA Uribe on 08/11/23 14:03 Results Reviewed Results Reviewed: Laboratory Last Values Hgb A1c (Clinic) 6.9 % (4.0-6.0) H 08/11/23 13:55 Assessment and Plan Assessment & Plan (1) Myasthenia gravis: Code(s): G70.00 - Myasthenia gravis without (acute) exacerbation Plan: Continue pyridostigmine. Follow-up with Neurology. (2) Diabetes mellitus: Code(s): E11.9 - Type 2 diabetes mellitus without complications Qualifiers: Diabetes mellitus type: type 2 Diabetes mellitus literature professor insulin use: without senior living use Diabetes mellitus complication status: without complication Qualified Code(s): E11.9 - Type 2 diabetes mellitus without complications Plan: Continue insulin. A1c goal is equal or less than 7%. (3) Hyperlipidemia LDL goal <70: Code(s): E78.5 - Hyperlipidemia, unspecified Plan: Do diet and exercise. LDL goal is less than 70. (4) Asthma: Comment: exacerbation in 2016 w/ICU admission Code(s): J45.909 - Unspecified asthma, uncomplicated Plan: Use rescue inhaler as needed. Follow-up with pulmonology. Orders: Orders AMB Hemoglobin A1c Today E11.9 - Type 2 diabetes mellitus without complications Coding Level of Care Code Est Pt Level 4 (39809) Diagnoses Myasthenia gravis G70.00 Type 2 diabetes mellitus without complication, without long-term current use of insulin E11.9 Diabetes mellitus type: type 2 Diabetes mellitus literature professor insulin use: without senior living use Diabetes mellitus complication status: without complication Hyperlipidemia LDL goal <70 E78.5 Asthma J45.909 Time Spent (min) 25
== END 2023-08-11 14:25 | disposition home or self-care (01) ==
PROVIDERS: Visit Provider Internal Medicine
DX: G70.00 Myasthenia gravis without (acute) exacerbation (principal); E11.9 Type 2 diabetes mellitus without complications; E78.5 Hyperlipidemia, unspecified; J45.909 Unspecified asthma, uncomplicated
CPT/HCPCS: 83036; 99214

== ENCOUNTER 2023-08-13 08:25 | Outpatient (AMB) | payer OTHER, SELFPAY ==
--- NOTE | 2023-08-13 08:57 | MHC.OFFVIS ---
Intake Vital Signs 08/13/23 08:59 Height 5 ft 5 in Weight 292 lb BMI 48.6 BP 118/82 Blood Pressure Location Rt brachial Position Sitting Intake Visit Reasons: 6 wks f/o for Myastenia Gravis-Confirmed Intake Note: Patient presents for 6 week follow up. Patient states I've been feeling much better. Allergies erythromycin base Allergy (Intermediate, Verified 08/13/23 09:00) Swelling levofloxacin [From LEVAQUIN] Allergy (Intermediate, Verified 08/13/23 09:00) RASH AND HIVES Penicillins [PENICILLINS] Allergy (Intermediate, Verified 08/13/23 09:00) Swelling Medication List - Last Reconciled 08/13/23 by NAYAN Chacon acetaminophen OTC only albuterol sulfate 90 mcg/actuation 2 inhalations inhalation QID PRN albuterol sulfate 2.5 mg (3 mL) inhalation QID PRN aspirin mg PO blood sugar diagnostic (FreeStyle Lite Strips) As directed three times a day blood-glucose meter (FreeStyle Lite Meter kit) As directed 3x/day budesonide-formoterol 160-4.5 mcg/actuation (Symbicort) 2 puffs inhalation BID 30 days fluticasone propionate 50 mcg/actuation (Flonase Allergy Relief) 1 spray intranasal BID 30 days insulin aspart U-100 subcut insulin glargine (Lantus Solostar U-100 Insulin) 44 units subcut nebulizers As directed pen needle, diabetic (BD Ultra-Fine Mini Pen Needle) As directed pyridostigmine bromide 30 mg (1/2 x 60 mg) PO QID 30 days HPI HPI Comments History of Present Illness Details 32-yr-old female presents for f/u visit. Pt denies any significant interval medical changes. She is now 4 months , due in January. f/b [facility] high-risk clinic. She states overall she is doing well. Does feel a bit tired- she is not sure if d/t the or her MG. She can have some difficulty swallowing- she tries to eat slowly, takes sips of fluids between bites, and avoids talking while eating. She is taking Mestinon 60mg qam, 30mg q afternoon and evening. [facility] Medical History Chronic cough MYNOR (obstructive sleep apnea) COVID-19 vaccine series completed Chronic diarrhea Obesity due to excess calories DM2 (diabetes mellitus, type 2) Myasthenia gravis Asthma Sleep apnea GERD (gastroesophageal reflux disease) Morbid obesity CAD (coronary artery disease) Lower back pain Surgical History History of esophagogastroduodenoscopy (EGD) S/P thymectomy History of tonsillectomy and adenoidectomy History of cholecystectomy Family History Father Hypertension Diabetes Mother Diabetes Hypertension Maternal Grandfather Diabetes Hypertension Bone cancer Maternal Aunt Breast cancer Maternal Grandmother Diabetes Hypertension CVD (cardiovascular disease) Other Mental health disorder Social History Housing: Apartment Are you a primary school childcare attendant to a significant other at home: No Do you presently have visiting nurse or other home services: Yes Alcohol intake: never Patient Tobacco Use Status: Never used Tobacco e-Cigarette/Vaping Use: Never Used Second Hand Smoke Exposure: No service: No Current occupational status: unemployed Current occupational exposures/hazards: No Cognitive needs: Yes (walker) Hearing needs: No Vision needs: No Female Reproductive History Menstrual Age of Menarche: 11 Review of Systems Const All systems reviewed & are unremarkable except as noted in HPI and below Physical Exam Vital Signs: Last Vital Signs BP 118/82 08/13/23 08:59 BMI result Body Mass Index 48.6 Const General: cooperative and no acute distress Orientation/consciousness: patient oriented x3 HEENT Head: Yes normocephalic Resp Effort & Inspection: normal respiratory effort and able to speak in complete sentences Neuro General: patient oriented x3, gait normal and CN's II-XI intact bilaterally Cognition (Neuro): normal cognition Motor exam (neuro): 5/5 motor strength present throughout Psych Appearance: grossly normal Mental Status: mental status grossly normal Speech and movement: Normal speech and movement present Affect: normal affect Attitude: cooperative Assessment & Plan Assessment & Plan (1) Myasthenia gravis: Code(s): G70.00 - Myasthenia gravis without (acute) exacerbation (2) : Code(s): Z34.90 - Encounter for supervision of normal , unspecified, unspecified trimester Plan Continue Mestinon 60mg qam and 30mg bid, may increase up to 60mg tid. Pt will likely need IV Mestinon during labor. If she has bothersome MG s/s, we can reconsider IVIG- however pt often has adverse effects from IVIG- rash and headaches. I would avoid Prednisone at this point unless pt's MG s/s become severe- as corticosteroids have been sown to cause cleft lip/palate and intrauterine growth restriction. f/u in 3 months (tele if needed) or sooner prn. Medications: Changed From pyridostigmine bromide 30 mg (1/2 x 60 mg) PO QID 30 days 60 tabs 4RF G70.00 - Myasthenia gravis without (acute) exacerbation To pyridostigmine bromide 30 - 60 mg (0.5 - 1 x 60 mg) PO TID 30 days 90 tabs 4RF G70.00 - Myasthenia gravis without (acute) exacerbation Quality Reporting (2019) Adult ([facility] 138/01/06/69) Smoking risk assessment performed?: Yes Patient Tobacco Use Status: Never used Tobacco Coding Level of Care Code Est Pt Level 4 (12719) Diagnoses Myasthenia gravis G70.00 Z34.90
[2023-08-13 08:59] VITALS: BP 118/82; BMI 48.6
== END 2023-08-13 09:25 | disposition home or self-care (01) ==
PROVIDERS: PCP Internal Medicine; Visit Provider Nurse Practitioner Family
DX: G70.00 Myasthenia gravis without (acute) exacerbation (principal); Z34.90 Encounter for supervision of normal pregnancy, unspecified, unspecified trimester
CPT/HCPCS: 99214

== ENCOUNTER → 2023-08-13 08:25 | Outpatient (BNVA) | payer OTHER, SELFPAY | PROVIDERS: PCP Internal Medicine; Visit Provider Nurse Practitioner Family | DX: O99.351 Diseases of the nervous system complicating pregnancy, first trimester (principal); G70.00 Myasthenia gravis without (acute) exacerbation | CPT/HCPCS: 99212 ==

== ENCOUNTER 2023-09-13 08:49 | Outpatient (AMB) | payer OTHER, SELFPAY ==
--- NOTE | 2023-09-13 08:58 | A.OFFVIS_ITS ---
Intake Vital Signs 09/13/23 08:59 Height 5 ft 5 in Weight 296 lb 8.348 oz BMI 49.3 BP 111/67 Blood Pressure Location Rt brachial Pulse 95 Pulse Source Doppler Pulse Oximetry (%) 98 Oxygen Delivery Method Room Air Intake Visit Reasons: myasthenia gravis Allergies erythromycin base Allergy (Intermediate, Verified 09/13/23 09:03) Swelling levofloxacin [From LEVAQUIN] Allergy (Intermediate, Verified 09/13/23 09:03) RASH AND HIVES Penicillins [PENICILLINS] Allergy (Intermediate, Verified 09/13/23 09:03) Swelling HPI HPI Comments History of Present Illness Details The patient is a 32-year-old woman with a known history of myasthenia gravis status post thymectomy back in 2017 and previously on immunosuppression with both prednisone and mycophenolate. The patient also has a history of asthma. Apparently she moved from [place] to [place] and she has not had regular care for myasthenia gravis. She was referred to Neurology. There was a mixup with the appointment in the patient was canceled. Therefore she has been off the mycophenolate and the prednisone for about a couple months. She also uses pyridostigmine for her myasthenia gravis symptoms but she has also been off the medication for a couple months. She has been noticing increasing GI symptoms with nausea fatigue dizziness. She was referred to Gastroenterology. She was having undergo an endoscopy and also colonoscopy today. However, she was found to have significant coughing and so to be unstable for the procedure. On further questioning the patient does have a productive cough with green sputum. Uoly-do-xifoepam severity. She does have a rescue inhaler that she uses for asthma. She also has a nebulizer but does not have any medication for it. She denies any fevers or chills. She denies any choking episodes. We did have an opening in the office therefore we had her come down. The patient currently feels like she her myasthenia gravis is flaring. She is concerned about repetitive movements ears should wean because she does not want to develop weakness. Specially with her medications. in the office we did have her undergo a spirometry test. Demonstrated that her FEV1 and FVC are both decreased down to the 70s which is suggestive of a restrictive ventilatory defect. No evidence of any obstruction. She also had some plateauing of the flows during the inspiratory effort which could cover response to vocal cord paralysis. Will continue to monitor closely her symptoms. She does urgently need to be seen by Neurology. 07/17/2022 the patient is here for a pulmonary follow-up visit. Overall she is doing a lot better. She completed the antibiotics. She was also seen urgently by Neurology which I appreciate. There taking good care her. She will be starting IVIG therapy for myasthenia gravis. And she also continues on all her other medicines. Patient is doing better from a respiratory status. She does have a rescue inhaler although she seems to using it between 3 to 4 times a week. Therefore I will go ahead and start her on a Symbicort maintenance inhaler which will work better for her. In the meantime the patient will get a chest x-ray. From a pulmonary standpoint the patient is able to proceed with her a elective colonoscopy once the patient is started on her IVIG therapy which I believe is next week. If the patient has any issues or any concerns she is to call the office for an earlier evaluation otherwise will follow-up in 6 months. 01/13/2023 the patient is here for pulmona ry follow-up visit. She is complaining of significant headaches. She has migraines. They be more frequent. She is also having significant daytime drowsiness. Her Tillar score is elevated 12/24. She did have a sleep study back in 2017 which would reviewed demonstrating moderate sleep apnea. She has not had a sleep test sent. Therefore will go ahead and repeat 1. The patient understands that she will likely need CPAP therapy to treat her migraines. She continues with Symbicort. This has been affecting beneficial. She did have COVID-19 about a month ago. Now she has this cough which difficult to clear phlegm. Usually is okay but with myasthenia gravis aware that she would fatigue from all the coughing. Th erefore I will provide her with a flutter valve to help her as well. She she also have a chest x-ray when able. Also to note, the patient had to stop the IVIG because he was resulting worsening headaches. At this point clinically she is doing better from the myasthenia gravis so she was placed on hold. If her symptoms worsen then she will be premedicated for her IVIG. 03/22/2023 the patient is here for a pulmo nary follow-up visit. She continues to have her headaches and her daytime drowsiness. Tillar score still elevated 11/24. She did have a home sleep study but unfortunately did not record and she has a redo it. We did call centralized scheduling to get the process moving for her. Has already been a few months. In the meantime she has been working closely with neurologist regarding her myasthenia gravis treatment. She is back on IVIG. She is noticing some increased lower extremity edema and swelling. She is concerned because she was previously on diuretics and she is no longer getting them. She has a trip planned to [place]. I will give her enough medication for the trip but then after that she needs to address that with her primary care. She still has not had her colonoscopy. This point the patient is medically optimized from a pulmonary standpoint may proceed with her GI procedures. Will follow-up after her sleep study. 09/13/2023 the patient is here for a [facility] follow-up visit. Overall the patient has been doing about same. Still complains of daytime drowsiness with an elevated Tillar score 11/24. The patient did have a sleep study in the past demonstrating sleep apnea. She did have a recent home sleep study demonstrating no evidence of any sleep apnea. Although with her continued symptoms and cardiovascular risk factors will be reasonable to order an in-lab sleep study. The patient now is 20 weeks gestation. Her is going well though she is high risk she has been followed closely at [facility]. The patient is fine to have a scheduled when she is due. She continues with her IVIG in addition to immunomodulator therapy. The patient will follow- up after her in-lab sleep study at this time. [facility] Medical History Chronic cough MYNOR (obstructive sleep apnea) COVID-19 vaccine series completed Chronic diarrhea Obesity due to excess calories DM2 (diabetes mellitus, type 2) Myasthenia gravis Asthma Sleep apnea GERD (gastroesophageal reflux disease) Morbid obesity CAD (coronary artery disease) Lower back pain Surgical History History of esophagogastroduodenoscopy (EGD) S/P thymectomy History of tonsillectomy and adenoidectomy History of cholecystectomy Family History Father Hypertension Diabetes Mother Diabetes Hypertension Maternal Grandfather Diabetes Hypertension Bone cancer Maternal Aunt Breast cancer Maternal Grandmother Diabetes Hypertension CVD (cardiovascular disease) Other Mental health disorder Social History Housing: Apartment Are you a primary veterinarian laboratory animal care to a significant other at home: No Do you presently have visiting nurse or other home services: Yes Alcohol intake: never Patient Tobacco Use Status: Never used Tobacco e-Cigarette/Vaping Use: Never Used Second Hand Smoke Exposure: No service: No Current occupational status: unemployed Current occupational exposures/hazards: No Cognitive needs: Yes (walker) Hearing needs: No Vision needs: No Female Reproductive History Menstrual Age of Menarche: 11 Review of Systems Const Reports daytime sleepiness, Reports fatigue, Denies fever(s), Reports headache(s), Denies weakness and Reports weight gain ENT Denies dizziness and Reports headache(s) Card Denies chest pain, Denies chest pain with activity, Denies syncope, Denies rapid heart rate, Denies pedal edema, Denies edema, Denies leg edema, Denies lightheadedness, Denies palpitations, Denies dyspnea, Denies dyspnea on exertion and Denies orthopnea Resp Denies chest congestion, Reports cough, Denies dyspnea and Denies dyspnea on exertion GI Denies hematochezia and Denies change in stool character Musc Denies abnormal gait, Denies muscle weakness, Denies numbness, Denies radiating pain into limb and Denies tingling Neuro Denies abnormal gait, Denies dizziness, Denies syncope, Reports headache(s), Denies numbness, Denies tingling and Denies weakness Endo Reports fatigue and Denies palpitations Physical Exam Vital Signs: Last Vital Signs Pulse 95 09/13/23 08:59 BP 111/67 09/13/23 08:59 Pulse Ox 98 09/13/23 08:59 Oxygen Delivery Method Room Air 09/13/23 08:59 BMI result Body Mass Index 49.3 Const General: comfortable and no acute distress HEENT Head: Yes normocephalic and Yes atraumatic Eyes Sclerae: sclerae normal EOM: EOMs intact bilaterally Neck Neck: Yes no lymphadenopathy, Yes trachea midline and Yes no JVD Thyroid: Thyroid normal Resp Effort & Inspection: able to speak in complete sentences Auscultation: diminished lung sounds Cardio Rate: regular rate Rhythm: regular rhythm Heart sounds: S1 normal heart sound present, S2 normal heart sound present and no murmurs Peripheral pulses: Peripheral pulses 2+ throughout GI Inspection: Yes obesity Palpation (GI): Soft to palpation and nontender Auscultation: normal bowel sounds Skin Other: No acanthosis nigricans or diabetic dermopathy Neuro Deep tendon reflexes (DTR's): Rt Biceps (C5, C6): 2+, Left biceps reflex intensity grade: 2+, Right patellar reflex intensity grade: 2+ and Left patellar reflex intensity grade: 2+ Extrem Other: General: Yes normal gait, No clubbing, No cyanosis and No edema Psych Appearance: well kempt Speech and movement: Normal speech and movement present Affect: normal affect Attitude: cooperative Assessment & Plan Assessment & Plan (1) MYNOR (obstructive sleep apnea): Code(s): G47.33 - Obstructive sleep apnea (adult) (pediatric) (2) Myasthenia gravis: Code(s): G70.00 - Myasthenia gravis without (acute) exacerbation (3) Asthma: Comment: exacerbation in 2016 w/ICU admission Code(s): J45.909 - Unspecified asthma, uncomplicated Qualifiers: Asthma severity: mild Asthma persistence: intermittent Asthma complication type: uncomplicated Qualified Code(s): J45.20 - Mild intermittent asthma, uncomplicated (4) Adrenal insufficiency: Code(s): E27.40 - Unspecified adrenocortical insufficiency Plan continue Symbicort short-acting beta agonist as needed home PSG non diagnostic, still symptomatic. Will request an in lab PSG CPT with acapella valve F/U 3-4 months Orders: Orders RT PSG in-lab sleep study Today G47.33 - Obstructive sleep apnea (adult) (pediatric) Quality Reporting (2019) Adult ([facility] 138/01/06/69) Smoking risk assessment performed?: Yes Patient Tobacco Use Status: Never used Tobacco Coding Level of Care Code Est Pt Level 4 (97235) Diagnoses MYNOR (obstructive sleep apnea) G47.33 Myasthenia gravis G70.00 Mild intermittent asthma without complication J45.20 Asthma severity: mild Asthma persistence: intermittent Asthma complication type: uncomplicated Adrenal insufficiency E27.40 Time Spent (min) 16
[2023-09-13 08:59] VITALS: BP 111/67; PULSE 95; O2SAT 98; BMI 49.3
== END 2023-09-13 09:15 | disposition home or self-care (01) ==
PROVIDERS: PCP Internal Medicine; Visit Provider Hospitalist
DX: G47.33 Obstructive sleep apnea (adult) (pediatric) (principal); G70.00 Myasthenia gravis without (acute) exacerbation; J45.20 Mild intermittent asthma, uncomplicated; E27.40 Unspecified adrenocortical insufficiency
CPT/HCPCS: 99214

== ENCOUNTER → 2023-09-13 08:49 | Outpatient (BNVA) | payer OTHER, SELFPAY | PROVIDERS: PCP Internal Medicine; Visit Provider Hospitalist | DX: G70.00 Myasthenia gravis without (acute) exacerbation (principal); G47.33 Obstructive sleep apnea (adult) (pediatric); J45.20 Mild intermittent asthma, uncomplicated; E27.40 Unspecified adrenocortical insufficiency | CPT/HCPCS: 99212 ==

== ENCOUNTER 2023-12-15 08:29 | Outpatient (AMB) | payer OTHER, SELFPAY ==
--- NOTE | 2023-12-15 08:48 | A.OFFVIS_ITS ---
Intake Vital Signs 12/15/23 08:49 Height 5 ft 5 in Weight 316 lb BMI 52.6 Intake Visit Reasons: 4 mo f/u - Myastenia Gravis-CONFIRMED Intake Note: Patient presents for 4 month follow up myasthenia gravis. Sometimes I feel fatigue, I'm being induced the baby is too big Allergies erythromycin base Allergy (Intermediate, Verified 12/15/23 08:52) Swelling levofloxacin [From LEVAQUIN] Allergy (Intermediate, Verified 12/15/23 08:52) RASH AND HIVES Penicillins [PENICILLINS] Allergy (Intermediate, Verified 12/15/23 08:52) Swelling Medication List - Last Reconciled 12/15/23 by NAYAN Chacon acetaminophen OTC only albuterol sulfate 90 mcg/actuation 2 inhalations inhalation QID PRN albuterol sulfate 2.5 mg (3 mL) inhalation QID PRN aspirin mg PO blood sugar diagnostic (FreeStyle Lite Strips) As directed three times a day blood-glucose meter (FreeStyle Lite Meter kit) As directed 3x/day budesonide-formoterol 160-4.5 mcg/actuation (Symbicort) 2 inhalations inhalation BID fluticasone propionate 50 mcg/actuation (Flonase Allergy Relief) 1 spray in tranasal BID 30 days insulin aspart U-100 subcut insulin glargine (Lantus Solostar U-100 Insulin) 44 units subcut nebulizers As directed pen needle, diabetic (BD Ultra-Fine Mini Pen Needle) As directed pyridostigmine bromide 30 - 60 mg (0.5 - 1 x 60 mg) PO TID 30 days HPI HPI Comments History of Present Illness Details 33-year-old female presents for f/u visi t for myasthenia gravis. Pt reports her is progressing without any significant complications, however the fetus is large for gestational age, and therefore she will likely undergo planned at the beginning of January. She has had 2 previous sections prior. She states she is scheduled for preop anesthesiology consult in December. She does hold to nurse after delivery, although is aware that she may have to weigh risks versus benefits if her myasthenia symptoms worsen. Denies any clear myasthenia exacerbations. She is using Mestinon 1 tab b.i.d., occasionally may use 1 extra tab per day She is feeling fatigued overall. Occasionally having difficulty swallowing water. Not sleeping well, needing to use the bathroom often at night. [facility] Medical History Chronic cough MYNOR (obstructive sleep apnea) COVID-19 vaccine series completed Chronic diarrhea Obesity due to excess calories DM2 (diabetes mellitus, type 2) Myasthenia gravis Asthma Sleep apnea GERD (gastroesophageal reflux disease) Morbid obesity CAD (coronary artery disease) Lower back pain Surgical History History of esophagogastroduodenoscopy (EGD) S/P thymectomy History of tonsillectomy and adenoidectomy History of cholecystectomy Family History Father Hypertension Diabetes Mother Diabetes Hypertension Maternal Grandfather Diabetes Hypertension Bone cancer Maternal Aunt Breast cancer Maternal Grandmother Diabetes Hypertension CVD (cardiovascular disease) Other Mental health disorder Social History Housing: Apartment Are you a primary family member caretaker to a significant other at home: No Do you presently have visiting nurse or other home services: Yes Alcohol intake: never Patient Tobacco Use Status: Never used Tobacco e-Cigarette/Vaping Use: Never Used Second Hand Smoke Exposure: No service: No Current occupational status: unemployed Current occupational exposures/hazards: No Cognitive needs: Yes (walker) Hearing needs: No Vision needs: No Female Reproductive History Menstrual Age of Menarche: 11 Review of Systems Const All systems reviewed & are unremarkable except as noted in HPI and below Physical Exam Vital Signs: BMI result Body Mass Index 52.6 Const General: cooperative and no acute distress Orientation/consciousness: patient oriented x3 HEENT Head: Yes normocephalic Resp Effort & Inspection: normal respiratory effort and able to speak in complete sentences Neuro General: patient oriented x3 and CN's II-XI intact bilaterally Cognition (Neuro): normal cognition Motor exam (neuro): 5/5 motor strength present throughout Psych Appearance: grossly normal Mental Status: mental status grossly normal Speech and movement: Normal speech and movement present Affect: normal affect Attitude: cooperative Thought process: Normal thought process present Thought content: Normal thought content present Insight: Good insight present (Psych) Judgement: Good judgement present (Psych) Assessment & Plan Assessment & Plan (1) Myasthenia gravis: Code(s): G70.00 - Myasthenia gravis without (acute) exacerbation (2) : Code(s): Z34.90 - Encounter for supervision of normal , unspecified, unspecified trimester Plan Continue Mestinon 60mg bid-tid. Pt will likely need IV Mestinon during labor. If she has bothersome MG s/s, we can reconsider IVIG- however pt often has adverse effects from IVIG- rash and headaches. I would avoid prolonged Prednisone at this point unless pt's MG s/s become severe- as corticosteroids have been shown to cause intrauterine growth restriction and to and possible adrenal suppression. Patient may continue Mestinon while nursing, as long as geoscience laboratory technician is in agreement. I would avoid using CellCept while the patient is nursing, as data is lacking on safety profile interpretation f/u in 3 months (tele if needed) or sooner prn. Medications: Refilled pyridostigmine bromide 30 - 60 mg (0.5 - 1 x 60 mg) PO TID 30 days 90 tabs 6RF G70.00 - Myasthenia gravis without (acute) exacerbation Quality Reporting (2019) Adult ([facility] 13801/06/69) Smoking risk assessment performed?: Yes Patient Tobacco Use Status: Never used Tobacco Coding Level of Care Code Est Pt Level 4 (99273) Diagnoses Myasthenia gravis G70.00 Z34.90
[2023-12-15 08:49] VITALS: BMI 52.6
== END 2023-12-15 09:31 | disposition home or self-care (01) ==
PROVIDERS: PCP Internal Medicine; Visit Provider Nurse Practitioner Family
DX: G70.00 Myasthenia gravis without (acute) exacerbation (principal); Z34.90 Encounter for supervision of normal pregnancy, unspecified, unspecified trimester
CPT/HCPCS: 99214

== ENCOUNTER → 2023-12-15 08:29 | Outpatient (BNVA) | payer OTHER, SELFPAY | PROVIDERS: PCP Internal Medicine; Visit Provider Nurse Practitioner Family | DX: O99.350 Diseases of the nervous system complicating pregnancy, unspecified trimester (principal); G70.00 Myasthenia gravis without (acute) exacerbation; Z79.899 Other long term (current) drug therapy; Z3A.00 Weeks of gestation of pregnancy not specified | CPT/HCPCS: 99212 ==

== ENCOUNTER → 2024-03-14 10:18 | Outpatient (BNVA) | payer OTHER, SELFPAY | PROVIDERS: PCP Internal Medicine; Visit Provider Nurse Practitioner Family | DX: G70.00 Myasthenia gravis without (acute) exacerbation (principal); G43.009 Migraine without aura, not intractable, without status migrainosus | CPT/HCPCS: 99212 ==

== ENCOUNTER 2024-03-14 10:21 | Outpatient (AMB) | payer OTHER, SELFPAY ==
--- NOTE | 2024-03-14 10:23 | MHC.OFFVIS ---
Vital Signs 03/14/24 10:28 Height 5 ft 5 in Weight 298 lb 4 oz BMI 49.6 BP 134/80 Blood Pressure Location Lt brachial Position Sitting Pulse 100 Pulse Source Pulse Oximeter Pulse Oximetry (%) 97 Oxygen Delivery Method Room Air Intake Visit Reasons: 3 mo f/u/ Confirmed w/Address Intake Note: Patient presents for 3 month f/u. Allergies erythromycin base Allergy (Intermediate, Verified 06/21/24 16:50) Swelling levofloxacin [From LEVAQUIN] Allergy (Intermediate, Verified 06/21/24 16:50) RASH AND HIVES Penicillins [PENICILLINS] Allergy (Intermediate, Verified 06/21/24 16:50) Swelling metformin Adverse Reaction (Severe, Verified 06/21/24 19:41) contraindicated in myasthenia gravis dulaglutide [From Trulicity] Adverse Reaction (Intermediate, Verified 06/21/24 19:41) inadequate response Medication List - Last Reconciled 03/14/24 by NAYAN Chacon acetaminophen OTC only albuterol sulfate 90 mcg/actuation 2 inhalations inhalation QID PRN albuterol sulfate 2.5 mg (3 mL) inhalation QID PRN aspirin mg PO blood sugar diagnostic (FreeStyle Lite Strips) As directed three times a day blood-glucose meter (FreeStyle Lite Meter kit) As directed 3x/day budesonide-formoterol 160-4.5 mcg/actuation (Symbicort) 2 inhalations inhalation BID fluticasone propionate 50 mcg/actuation (Flonase Allergy Relief) 1 spray intranasal BID 30 days insulin aspart U-100 subcut insulin glargine (Lantus Solostar U-100 Insulin) 44 units subcut nebulizers As directed nifedipine ER 30 mg PO DAILY 90 days pen needle, diabetic (BD Ultra-Fine Mini Pen Needle) As directed pyridostigmine bromide 30 - 60 mg (0.5 - 1 x 60 mg) PO TID 30 days HPI Comments Details: 33-yr-old female presents for f/u visit. Pt is 1 month . The delivery was via caesarean, pt reports this was d/t pt was having increased fatigue and BLE weakness. She is feeling better now, but is still having fatigue, BLE mild weakness, some difficulty swallowing. She is sleeping ok, but does need to wake up for to care for her baby. Denies facial weakness, other diplopia, or SOB. She is taking Mestinon 60mg 2 x's per day. She is having a daily migraine and headache in the last week. The headache is strong, frontal pressure a/w some not right in space dizziness and horizontal diplopia. Tylenol- does not help much. Sumatriptan caused palpitation and nausea. Baseline migraine: bitemporal throbbing and stabbing pain. Denies aura. A/w photohphobia, milder phonophobia, some osmophobia, nausea. brain fog, fatigue, body redness. [facility] Medical History (Updated 06/21/24 @ 19:42 by Nemo Ortiz MD) Moderate recurrent major depression Chronic cough MYNOR (obstructive sleep apnea) COVID-19 vaccine series completed Chronic diarrhea Obesity due to excess calories Myasthenia gravis Asthma Sleep apnea GERD (gastroesophageal reflux disease) Morbid obesity CAD (coronary artery disease) Lower back pain Surgical History H/O section History of esophagogastroduodenoscopy (EGD) S/P thymectomy History of tonsillectomy and adenoidectomy History of cholecystectomy Family History Father Hypertension Diabetes Mother Diabetes Hypertension Maternal Grandfather Diabetes Hypertension Bone cancer Maternal Aunt Breast cancer Maternal Grandmother Diabetes Hypertension CVD (cardiovascular disease) Other Mental health disorder Social History Housing: Apartment Are you a primary overnight caregiver to a significant other at home: No Do you presently have visiting nurse or other home services: Yes Alcohol intake: never Patient Tobacco Use Status: Never used Tobacco e-Cigarette/Vaping Use: Never Used Second Hand Smoke Exposure: No service: No Current occupational status: unemployed Current occupational exposures/hazards: No Cognitive needs: Yes (walker) Hearing needs: No Vision needs: No Female Reproductive History Menstrual Age of Menarche: 11 Review of Systems Const All systems reviewed & are unremarkable except as noted in HPI and below Physical Exam Vital Signs: Last Vital Signs Pulse 100 03/14/24 10:28 BP 134/80 03/14/24 10:28 Pulse Ox 97 03/14/24 10:28 Oxygen Delivery Method Room Air 03/14/24 10:28 BMI result Body Mass Index 49.6 Const General: cooperative and no acute distress Orientation/consciousness: patient oriented x3 HEENT Head: Yes normocephalic Resp Effort & Inspection: normal respiratory effort and able to speak in complete sentences Neuro Other: BLE MS 5-/5. Slow to stand. General: patient oriented x3, gait normal and CN's II-XI intact bilaterally Cognition (Neuro): normal cognition Psych Appearance: grossly normal Mental Status: mental status grossly normal Speech and movement: Normal speech and movement present Affect: normal affect Attitude: cooperative Thought process: Normal thought process present Thought content: Normal thought content present Insight: Good insight present (Psych) Judgement: Good judgement present (Psych) Quality Reporting (2019) Adult ([facility] 13801/06/69) Smoking risk assessment performed?: Yes Patient Tobacco Use Status: Never used Tobacco Assessment & Plan Assessment & Plan (1) Myasthenia gravis: Code(s): G70.00 - Myasthenia gravis without (acute) exacerbation Category: Medical (2) Migraine without aura: Code(s): G43.009 - Migraine without aura, not intractable, without status migrainosus Category: Medical Plan For MG: Adjust Mestinon 60mg bid to Mestinon ER 180mg bid, may use Mestinon 60mg tab- 1/2- -1 tab bid prn. Prior to recent , pt was on CellCept, however on Cellcept pt still had breakthrough MG s/s. Start Azathioprine 50mg qam. Future considerations- Vygart. Contraindications- Chronic corticosteroid tx d/t diabtes. For acute migraine tx: Trial Ubrelvy 100mg prn. May take w/ Tylenol. Acute migraine tx contraindications: all Triptans and DHE d/t HLD, CAD, For migraine prvenetion: Continue Nifedipine ER- used for CV dz. f/u in 3 months (tele if needed) or sooner prn. Medications: New pyridostigmine bromide ER administer 6 hours apart 180 mg PO BID 60 tabs 3RF 30 days ubrogepant (Ubrelvy) take at onset of migraine, may repeat in 2hrs (may take w/ Tylenol) 50 - 100 mg (0.5 - 1 x 100 mg) PO ONCE PRN 16 tabs 3RF migraine headache 30 days azathioprine 50 mg PO DAILY 30 tabs 3RF 30 days Coding Level of Care Code Est Pt Level 4 (01560) Diagnoses Myasthenia gravis G70.00 Migraine without aura G43.009
[2024-03-14 10:28] VITALS: BP 134/80; PULSE 100; O2SAT 97; BMI 49.6
== END 2024-03-14 11:15 | disposition home or self-care (01) ==
PROVIDERS: PCP Internal Medicine; Visit Provider Nurse Practitioner Family
DX: G70.00 Myasthenia gravis without (acute) exacerbation (principal); G43.009 Migraine without aura, not intractable, without status migrainosus
CPT/HCPCS: 99214

== ENCOUNTER 2024-06-21 16:25 | Outpatient (AMB) | payer OTHER, SELFPAY ==
--- NOTE | 2024-06-21 16:32 | MHC.PC.OV ---
Vital Signs 06/21/24 16:36 Height 5 ft 5 in Weight 298 lb BMI 49.6 BP 130/82 Blood Pressure Location Lt brachial Position Sitting Intake Visit Reasons: OVERDUE DM FUP/NEEDS A1C Intake Note: Patient here for a follow up DM Detective Automobile Section Required: No Accompanied by: Child Allergies erythromycin base Allergy (Intermediate, Verified 06/21/24 16:50) Swelling levofloxacin [From LEVAQUIN] Allergy (Intermediate, Verified 06/21/24 16:50) RASH AND HIVES Penicillins [PENICILLINS] Allergy (Intermediate, Verified 06/21/24 16:50) Swelling metformin Adverse Reaction (Severe, Verified 06/21/24 19:41) contraindicated in myasthenia gravis dulaglutide [From Trulicity] Adverse Reaction (Intermediate, Verified 06/21/24 19:41) inadequate response Medication List - Last Reconciled 06/21/24 by Nemo Ortiz MD albuterol sulfate 90 mcg/actuation 2 inhalations inhalation QID PRN albuterol sulfate 2.5 mg (3 mL) inhalation QID PRN azathioprine 50 mg PO DAILY 30 days blood sugar diagnostic (FreeStyle Lite Strips) As directed three times a day blood-glucose meter (FreeStyle Lite Meter kit) As directed 3x/day budesonide-formoterol 160-4.5 mcg/actuation (Symbicort) 2 inhalations inhalation BID fluticasone propionate 50 mcg/actuation (Flonase Allergy Relief) 1 spray intranasal BID 30 days nebulizers As directed nifedipine ER 30 mg PO DAILY 90 days pen needle, diabetic (BD Ultra-Fine Mini Pen Needle) As directed pyridostigmine bromide 30 - 60 mg (0.5 - 1 x 60 mg) PO TID 30 days ubrogepant (Ubrelvy) 50 - 100 mg (0.5 - 1 x 100 mg) PO ONCE PRN 30 days Tobacco use date assessed: 06/21/24 Dental Screening Dental Screen Date: 06/21/24 Did you have a dental visit in the last 12 months?: Yes Did you have a dental problem in the last 6 months where you did not have access to dental care?: No Was dental information given to patient?: Patient has dentist HPI HPI Comments History of Present Illness Details This is a 33-year-old female with hypertension, diabetes mellitus type 2, myasthenia gravis, morbid obesity and mild recurrent major depression that comes today for follow-up on her conditions. Blood pressure stable. A1c elevated and she was on Ozempic but stopped using it. Metformin is contraindicated in myasthenia gravis. Trulicity cause an inadequate response. I will start her on insulin due to an elevated A1c. Myasthenia gravis is follow by Neurology. She is morbidly obese with a BMI of 49.6 and declines weight loss surgery. Depression is in remission. No chest pain or shortness on breath. FORMERLY [facility], [facility]–1983 Medical History (Updated 06/21/24 @ 19:42 by Nemo Ortiz MD) Moderate recurrent major depression Chronic cough MYNOR (obstructive sleep apnea) COVID-19 vaccine series completed Chronic diarrhea Obesity due to excess calories Myasthenia gravis Asthma Sleep apnea GERD (gastroesophageal reflux disease) Morbid obesity CAD (coronary artery disease) Lower back pain Surgical History H/O section History of esophagogastroduodenoscopy (EGD) S/P thymectomy History of tonsillectomy and adenoidectomy History of cholecystectomy Family History Father Hypertension Diabetes Mother Diabetes Hypertension Maternal Grandfather Diabetes Hypertension Bone cancer Maternal Aunt Breast cancer Maternal Grandmother Diabetes Hypertension CVD (cardiovascular disease) Other Mental health disorder Social History Housing: Apartment Are you a primary career development manager to a significant other at home: No Do you presently have visiting nurse or other home services: Yes Alcohol intake: never Patient Tobacco Use Status: Never used Tobacco e-Cigarette/Vaping Use: Never Used Second Hand Smoke Exposure: No service: No Current occupational status: unemployed Current occupational exposures/hazards: No Cognitive needs: Yes (walker) Hearing needs: No Vision needs: No Female Reproductive History Menstrual Age of Menarche: 11 Questionnaire PHQ-9 Over the last 2 weeks, how often have you been bothered by any of the following problems? 1. Little interest or pleasure in doing things: not at all 2. Feeling down, depressed, or hopeless: not at all 3. Trouble falling or staying asleep, or sleeping too much: not at all 4. Feeling tired or having little energy: not at all 5. Poor appetite or overeating: not at all 6. Feeling bad about yourself - or that you are a failure or have let yourself or your family down: not at all 7. Trouble concentrating on things, such as reading the newspaper or watching television: not at all 8. Moving or speaking so slowly that other people could have noticed. Or the opposite - being so fidgety or restless that you have been moving around a lot more than usual: not at all 9. Thoughts that you would be better off or of hurting yourself in some way: not at all Total score: 0 Depression Screening Interpretation: Negative Depression Screening Done: Yes 28824 - PHQ-9 Billing: Yes Source: Developed by Drs. Devon Hamilton, Joi Bingham, Edgardo Martinez and colleagues, with an educational elver from [employer]. Thrive Questionnaire Date Thrive assessed: 06/21/24 I am a: Patient What is your living situation today?: I have a steady place to live Within the past 12 months, did the food you bought not last and you didn't have the money to get more?: Never true Within the past 12 months, did you worry whether your food would run out before you got money to buy more?: Never true Do you have trouble paying for medicines?: No Do you have trouble getting transportation to medical appointments?: No Do you have trouble paying your heating and electricity bill?: No Do you have trouble taking care of your child, family member or friend?: No Do you have trouble with day-to-day activities such as bathing, preparing meals, shopping, managing finances, etc.?: No Are you currently unemployed and looking for a job?: No Are you interested in more education?: No Please select the resources that you would like help with: None Currently or been in a relationship where the following occur: No concerns reported THRIVE Score: 0 AUDIT C Alcohol Use Questionnaire (AUDIT-C) 1. How often do you have a drink containing alcohol?: Never Total Score: 0 Score Reviewed/Action Taken: No ALLYSSA-7 AMB Questionnaire ALLYSSA-7 Date ALLYSSA - 7 assessed: 06/21/24 Feeling nervous, anxious, or on edge: 1 = Several days Not being able to stop or control worryin = Not at all Worrying too much about different things: 1 = Several days Trouble relaxin = Not at all Being so restless that it is hard to sit still: 0 = Not at all Becoming easily annoyed or irritable: 0 = Not at all Feeling afraid as if something awful might happen: 0 = Not at all Total ALLYSSA-7 score (0-4 normal; 5-9 mild; 10-14 moderate; 15-21 severe): 2 Source: Developed by Drs. Devon Hamilton, Joi Bingham, Edgardo Martinez and colleagues, with an educational elver from [employer]. ALLYSSA-7 Assessment Billing ALLYSSA-7 Assessment Tool: ALLYSSA-7 Assessment 51169 Review of Systems Const All systems reviewed & are unremarkable except as noted in HPI and below Card Denies chest pain at rest, Denies chest pain with activity, Denies edema, Denies irregular heart rhythm, Denies claudication, Denies dyspnea, Denies dyspnea on exertion, Denies orthopnea, Denies paroxysmal nocturnal dyspnea and Denies slow heart rate Resp Denies cough, Denies dyspnea and Denies dyspnea on exertion Physical exam (Primary Care) Vital Signs: Last Vital Signs BP 130/82 06/21/24 16:36 BMI result Body Mass Index 49.6 Tobacco/Smoking Status: Tobacco use Status Tobacco use date assessed 06/21/24 06/21/24 16:46 Patient Tobacco Use Status Never used Tobacco 06/21/24 16:33 e-Cigarette/Vaping Use Never Used 06/21/24 16:33 PHQ-9: PHQ-9 Score PHQ-9: Total score 0 06/21/24 17:22 Depression Screening Interpretation: Negative Thrive Assessment: Date of Thrive Assessment Date Thrive assessed 06/21/24 06/21/24 16:46 Currently or been in a relationship where the following occur: No concerns reported Resp Effort & Inspection: normal respiratory effort Auscultation: clear to auscultation bilaterally Cardio Jugular venous distension: no JVD Rate: regular rate Rhythm: regular rhythm Heart sounds: S1 normal heart sound present and S2 normal heart sound present Extrem General: Yes full ROM Results AMB Hemoglobin A1c AMB Hemoglobin A1c 11.1 % Last Edit by TABITHA Uribe on 06/21/24 16:46 Results Reviewed Results Reviewed: Laboratory Last Values Hgb A1c (Clinic) 11.1 % (4.0-6.0) H 06/21/24 16:32 Assessment and Plan Assessment & Plan (1) Diabetes mellitus: Code(s): E11.9 - Type 2 diabetes mellitus without complications Qualifiers: Diabetes mellitus type: type 2 Diabetes mellitus terminal gauger supervisor insulin use: without terminal gauger supervisor use Diabetes mellitus complication status: without complication Qualified Code(s): E11.9 - Type 2 diabetes mellitus without complications Plan: Start Lantus. Start Ozempic. A1c goal is equal or less than 7%. (2) Myasthenia gravis: Code(s): G70.00 - Myasthenia gravis without (acute) exacerbation Plan: Follow-up with neurology. Continue Ubrelvy. (3) MDD (major depressive disorder), recurrent episode, mild: Code(s): F33.0 - Major depressive disorder, recurrent, mild Plan: In remission. (4) Morbid obesity with BMI of 45.0-49.9, adult: Code(s): E66.01 - Morbid (severe) obesity due to excess calories; Z68.42 - Body mass index [BMI] 45.0-49.9, adult Plan: Start diet and exercise. BMI goal is less than 30. (5) Essential hypertension: Code(s): I10 - Essential (primary) hypertension Plan: Continue nifedipine. Blood pressure goal is equal or less than 130/80. Orders: Orders AMB Hemoglobin A1c Today E11.9 - Type 2 diabetes mellitus without complications Lipid Panel Today E78.5 - Hyperlipidemia, unspecified Microalbumin, Random (w Creat) Today E11.9 - Type 2 diabetes mellitus without complications Complete Blood Count Auto Diff Today D64.9 - Anemia, unspecified IRON PROFILE Today D64.9 - Anemia, unspecified Vitamin D 25-OH Total Today E55.9 - Vitamin D deficiency, unspecified Vitamin B12 and Folate Today E53.8 - Deficiency of other specified B group vitamins Comprehensive [place]. Panel Fast Today E11.9 - Type 2 diabetes mellitus without complications Medications: New semaglutide (Ozempic) for 4 weeks 0.25 mg (0.368 mL) subcut QWEEK 1.472 mL 0RF 4 weeks E11.9 - Type 2 diabetes mellitus without complications insulin glargine (Lantus Solostar U-100 Insulin) 15 units (0.15 mL) subcut QAM 4.5 mL 0RF 30 days E11.9 - Type 2 diabetes mellitus without complications pen needle, diabetic (Comfort EZ Pen [place]) As directed 100 ea 3RF E11.9 - Type 2 diabetes mellitus without complications Coding Level of Care Code Est Pt Level 4 (31159) Complex EM visit Add On G2211 Diagnoses Type 2 diabetes mellitus without complication, without long-term current use of insulin E11.9 Diabetes mellitus type: type 2 Diabetes mellitus mcfp insulin use: without terminal gauger supervisor use Diabetes mellitus complication status: without complication Myasthenia gravis G70.00 MDD (major depressive disorder), recurrent episode, mild F33.0 Morbid obesity with BMI of 45.0-49.9, adult E66.01; Z68.42 Essential hypertension I10 Additional Codes ALLYSSA-7 Assessment Billing - ALLYSSA-7 Assessment Tool: ALLYSSA-7 Assessment 46215 ([id number]) Time Spent (min) 25
[2024-06-21 16:36] VITALS: BP 130/82; BMI 49.6
== END 2024-06-21 16:59 | disposition home or self-care (01) ==
PROVIDERS: PCP Internal Medicine; Visit Provider Internal Medicine
DX: E11.9 Type 2 diabetes mellitus without complications (principal); G70.00 Myasthenia gravis without (acute) exacerbation; E66.01 Morbid (severe) obesity due to excess calories; Z68.42 Body mass index [BMI] 45.0-49.9, adult; F33.0 Major depressive disorder, recurrent, mild; I10 Essential (primary) hypertension
CPT/HCPCS: 83036; 99214; G2211

== ENCOUNTER 2024-07-12 11:30 | Outpatient (AMB) | payer OTHER, SELFPAY ==
--- NOTE | 2024-07-12 11:44 | MHC.OFFVIS ---
Vital Signs 07/12/24 11:45 Height 5 ft 5 in Weight 290 lb BMI 48.3 Intake Visit Reasons: F/U for persistent myasthenia gravis Sx Intake Note: Patient presents for persistent myasthenia gravis symptoms Steel Unloader Required: Yes Steel Unloader Name: chai mulligan Information Interpreted: non-clinical & clinical Allergies erythromycin base Allergy (Intermediate, Verified 06/21/24 16:50) Swelling levofloxacin [From LEVAQUIN] Allergy (Intermediate, Verified 06/21/24 16:50) RASH AND HIVES Penicillins [PENICILLINS] Allergy (Intermediate, Verified 06/21/24 16:50) Swelling metformin Adverse Reaction (Severe, Verified 06/21/24 19:41) contraindicated in myasthenia gravis dulaglutide [From Trulicity] Adverse Reaction (Intermediate, Verified 06/21/24 19:41) inadequate response Medication List - Last Reconciled 07/12/24 by NAYAN Chacon albuterol sulfate 90 mcg/actuation 2 inhalations inhalation QID PRN albuterol sulfate 2.5 mg (3 mL) inhalation QID PRN azathioprine 50 mg PO DAILY 30 days blood sugar diagnostic (FreeStyle Lite Strips) As directed three times a day blood-glucose meter (FreeStyle Lite Meter kit) As directed 3x/day budesonide-formoterol 160-4.5 mcg/actuation (Symbicort) 2 inhalations inhalation BID fluticasone propionate 50 mcg/actuation (Flonase Allergy Relief) 1 spray intranasal BID 30 days insulin glargine (Lantus Solostar U-100 Insulin) 15 units (0.15 mL) subcut QAM 30 days lancets (FreeStyle Lancets) Use 1 lancet three times a day nebulizers As directed nifedipine ER 30 mg PO DAILY 90 days omeprazole 20 mg PO DAILY 90 days pen needle, diabetic (BD Ultra-Fine Mini Pen Needle) As directed pen needle, diabetic (Comfort EZ Pen [place]) As directed pyridostigmine bromide 30 - 60 mg (0.5 - 1 x 60 mg) PO TID 30 days semaglutide (Ozempic) 0.25 mg (0.368 mL) subcut QWEEK 4 weeks ubrogepant (Ubrelvy) 50 - 100 mg (0.5 - 1 x 100 mg) PO ONCE PRN 30 days HPI Comments Details: 33-yr-old female presents for f/u visit of MG and migraine. Pt denies any significant interval medical changes. Pt reports she started Azathioprine a few weeks ago, as she had not previously rec'd it. She had called the office a few weeks ago, as she was having increased difficulty speaking. She was taking Mestinon ER 180mg BID- states worked well, but effect waned after 3 hrs. She ran out of this ~1 week ago, and since resumed mestinon 60mg TID q 6 hrs. May take Mestinon q 5hrs if her MG s/s increase- she states this does help short-term She has been having difficulty eating, chewing, and swallowing. Some SOB when walking. Not currently having weakness, but will feel weak if doing more, or holding her son for longer period. Denies double vision. She was looking for dental clearance for upcoming dental procedure. She was having increased headaches, hair loss, and felt it was exacerbating her MG s/s so she switched her IUD to Depo-provera which she feels has been helpful. Started prn Ubrelvy, which has been helpful. [facility] Medical History (Updated 06/21/24 @ 19:42 by Nemo Ortiz MD) Moderate recurrent major depression Chronic cough MYNOR (obstructive sleep apnea) COVID-19 vaccine series completed Chronic diarrhea Obesity due to excess calories Myasthenia gravis Asthma Sleep apnea GERD (gastroesophageal reflux disease) Morbid obesity CAD (coronary artery disease) Lower back pain Surgical History H/O section History of esophagogastroduodenoscopy (EGD) S/P thymectomy History of tonsillectomy and adenoidectomy History of cholecystectomy Family History Father Hypertension Diabetes Mother Diabetes Hypertension Maternal Grandfather Diabetes Hypertension Bone cancer Maternal Aunt Breast cancer Maternal Grandmother Diabetes Hypertension CVD (cardiovascular disease) Other Mental health disorder Social History Housing: Apartment Are you a primary manager medicare marketing to a significant other at home: No Do you presently have visiting nurse or other home services: Yes Alcohol intake: never Patient Tobacco Use Status: Never used Tobacco e-Cigarette/Vaping Use: Never Used Second Hand Smoke Exposure: No service: No Current occupational status: unemployed Current occupational exposures/hazards: No Cognitive needs: Yes (walker) Hearing needs: No Vision needs: No Female Reproductive History Menstrual Age of Menarche: 11 Physical Exam Vital Signs: BMI result Body Mass Index 48.3 Const General: cooperative and no acute distress Orientation/consciousness: patient oriented x3 Resp Effort & Inspection: normal respiratory effort and able to speak in complete sentences Neuro General: patient oriented x3 Cranial nerves: Yes CN's II-XII intact bilaterally Cognition (Neuro): normal cognition Psych Appearance: grossly normal Mental Status: mental status grossly normal Speech and movement: Normal speech and movement present Affect: normal affect Attitude: cooperative Quality Reporting (2019) Adult ([facility] 13801/06/69) Smoking risk assessment performed?: Yes Patient Tobacco Use Status: Never used Tobacco Assessment & Plan Assessment & Plan (1) Myasthenia gravis: Code(s): G70.00 - Myasthenia gravis without (acute) exacerbation Category: Medical (2) Migraine without aura: Code(s): G43.009 - Migraine without aura, not intractable, without status migrainosus Category: Medical Plan For MG: Adjust Mestinon to: Mestinon ER 180mg TID (8am, 2pm, 8pm) Mestinon IR 60mg BID at 11am and 5pm, may take 1 extra tab at 11pm if needed. Moniytor for loose stools Continue Azathioprine 50mg qam. Check CBC/CMP today then CBC qwk x4, then q2wk x4, then q month. Previous trials: On Cellcept pt still had breakthrough MG s/s. Future considerations- [place]. Contraindications- Chronic corticosteroid tx d/t diabetes. For acute migraine tx: Continue Ubrelvy 100mg prn. May take w/ Tylenol. Acute migraine tx contraindications: all Triptans and DHE d/t HLD, CAD, ? For migraine prevention: Continue Nifedipine ER- used for CV dz. ? ? f/u in 3 months or sooner prn. Orders: Orders Comprehensive Met. Panel Today G70.00 - Myasthenia gravis without (acute) exacerbation Complete Blood Count Auto Diff 07/17/24 G70.00 - Myasthenia gravis without (acute) exacerbation Complete Blood Count Auto Diff 07/24/24 G70.00 - Myasthenia gravis without (acute) exacerbation Complete Blood Count Auto Diff 08/14/24 G70.00 - Myasthenia gravis without (acute) exacerbation Complete Blood Count Auto Diff 08/28/24 G70.00 - Myasthenia gravis without (acute) exacerbation Complete Blood Count Auto Diff 10/16/24 G70.00 - Myasthenia gravis without (acute) exacerbation Complete Blood Count Auto Diff G70.00 - Myasthenia gravis without (acute) exacerbation Complete Blood Count Auto Diff 07/31/24 G70.00 - Myasthenia gravis without (acute) exacerbation Complete Blood Count Auto Diff 09/11/24 G70.00 - Myasthenia gravis without (acute) exacerbation Complete Blood Count Auto Diff 09/18/24 G70.00 - Myasthenia gravis without (acute) exacerbation Medications: Changed From pyridostigmine bromide ER administer 6 hours apart 180 mg PO BID 60 tabs 3RF 30 days To pyridostigmine bromide ER 180 mg orally TID; administer 6 hours apart 30 days 90 tabs 6RF Coding Level of Care Code Est Pt Level 4 (08032) Complex EM visit Add On G2211 Diagnoses Myasthenia gravis G70.00 Migraine without aura G43.009
[2024-07-12 11:45] VITALS: BMI 48.3
== END 2024-07-12 12:17 | disposition home or self-care (01) ==
PROVIDERS: PCP Internal Medicine; Visit Provider Nurse Practitioner Family
DX: G70.00 Myasthenia gravis without (acute) exacerbation (principal); G43.009 Migraine without aura, not intractable, without status migrainosus
CPT/HCPCS: 99214; G2211

== ENCOUNTER → 2024-07-12 11:30 | Outpatient (BNVA) | payer OTHER, SELFPAY | PROVIDERS: PCP Internal Medicine; Visit Provider Nurse Practitioner Family | DX: G70.00 Myasthenia gravis without (acute) exacerbation (principal); G43.009 Migraine without aura, not intractable, without status migrainosus | CPT/HCPCS: 99212 ==

== ENCOUNTER 2024-07-12 12:16 | Outpatient (REF) | payer OTHER, SELFPAY ==
[2024-07-12 17:54] LABS: MANUAL DIFF FLAG NO
[2024-07-12 18:21] LABS: Basophils Percent Auto 0.3 % (0-2); Eosinophils Absolute Auto 0.3 X10*3/uL (0.0-0.4); Eosinophils Percent Auto 3.8 % (0-4); Hematocrit 40.5 % (37.0-47.0); Hemoglobin 13.7 g/dl (12.0-16.0); Imm Gran Abs Auto 0.02 X10*3/uL (0.00-0.03); Imm Gran Pct Auto 0.2 % (0.0-0.4); Lymphocytes Absolute Auto 3.3 X10*3/uL (1.2-4.9); Lymphocytes Percent Auto 36.6 % (20-40); Mean Corpuscular HGB Conc 33.8 g/dl (31.0-35.0); Mean Corpuscular Hemoglobin 28.9 pg (27.0-33.0); Mean Corpuscular Volume 85.4 fL (80.0-98.0); Mean Platelet Volume 11.4 fL (9.4-12.3); Monocytes Absolute Auto 0.5 X10*3/uL (0.1-1.2); Monocytes Percent Auto 5.5 % (2-11); Neutrophils Absolute Auto 4.9 x10*3/uL (2.0-8.3); Neutrophils Percent Auto 53.6 % (45-73); Platelet Count 267 X10*3/uL (160-400); Red Blood Count 4.74 X10*6/uL (4.20-5.50); Red Cell Distribution Width 12.3 % (11.0-16.0); White Blood Count 9.1 X10*3/uL (4.8-10.8)
[2024-07-12 18:22] LABS: Alanine Aminotransferase 33 U/L (0-31); Alkaline Phosphatase 84 U/L (39-117); Anion Gap 12 (12-20); Aspartate Amino Transferase 30 U/L (5-31); Bilirubin Total 0.5 mg/dL (0.0-1.0); Blood Urea Nitrogen 11 mg/dL (9-16); Calcium 9.4 mg/dL (8.4-10.2); Carbon Dioxide 24 mmol/L (22-29); Chloride 107 mmol/L (96-108); Estimated Glomerular Filt Rate > 60; Glucose Random 217 mg/dL (60-115); Potassium 3.6 mmol/L (3.3-5.1); Sodium 139 mmol/L (135-145); Total Protein 7.5 g/dL (6.5-8.0)
== END 2024-07-12 12:17 | disposition home or self-care (01) ==
LOC: HO.HKASLDS 12:16
PROVIDERS: Visit Provider Nurse Practitioner Family
DX: G70.00 Myasthenia gravis without (acute) exacerbation (principal)
CPT/HCPCS: 36415; 80053; 85025

== ENCOUNTER 2024-10-18 14:19 | Outpatient (AMB) | payer OTHER, SELFPAY ==
--- NOTE | 2024-10-18 14:20 | A.OFFVIS_ITS ---
Vital Signs 10/18/24 14:21 Height 5 ft 5.5 in Weight 278 lb BMI 45.6 BP 134/82 Blood Pressure Location Rt brachial Position Sitting Pulse 94 Pulse Source Pulse Oximeter Pulse Oximetry (%) 99 Oxygen Delivery Method Room Air Intake Visit Reasons: Follow up Tool Grinder Set Up Operator Gear Required: No Tool Grinder Set Up Operator Gear Services: Tool Grinder Set Up Operator Gear Present Tool Grinder Set Up Operator Gear Name: Georgiana [id number] Accompanied by: Child Allergies erythromycin base Allergy (Intermediate, Verified 10/18/24 14:24) Swelling levofloxacin [From LEVAQUIN] Allergy (Intermediate, Verified 10/18/24 14:24) RASH AND HIVES Penicillins [PENICILLINS] Allergy (Intermediate, Verified 10/18/24 14:24) Swelling metformin Adverse Reaction (Severe, Verified 10/18/24 14:24) contraindicated in myasthenia gravis dulaglutide [From Trulicity] Adverse Reaction (Intermediate, Verified 10/18/24 14:24) inadequate response Medication List - Last Reconciled 10/22/24 by NAYAN Chacon albuterol sulfate 90 mcg/actuation 2 inhalations inhalation QID PRN albuterol sulfate 2.5 mg (3 mL) inhalation QID PRN azathioprine 50 mg PO DAILY 30 days blood sugar diagnostic (FreeStyle Lite Strips) As directed three times a day blood-glucose meter (FreeStyle Lite Meter kit) As directed 3x/day budesonide-formoterol 160-4.5 mcg/actuation (Symbicort) 2 inhalations inhalation BID diclofenac potassium 50 mg PO BID PRN 30 days fluticasone propionate 50 mcg/actuation (Flonase Allergy Relief) 1 spray intranasal BID 30 days insulin glargine (Lantus Solostar U-100 Insulin) 15 units (0.15 mL) subcut QAM 30 days ketorolac 10 mg PO Q8H PRN 5 days lancets (FreeStyle Lancets) Use 1 lancet three times a day nebulizers As directed nifedipine ER 30 mg PO DAILY 90 days omeprazole 20 mg PO DAILY 90 days pen needle, diabetic (BD Ultra-Fine Mini Pen Needle) As directed pen needle, diabetic (Comfort EZ Pen [place]) As directed pyridostigmine bromide 30 - 60 mg (0.5 - 1 x 60 mg) PO TID 30 days pyridostigmine bromide ER 360 mg (2 x 180 mg) PO QID 30 days semaglutide (Ozempic) 0.25 mg (0.368 mL) subcut QWEEK 4 weeks ubrogepant (Ubrelvy) 50 - 100 mg (0.5 - 1 x 100 mg) PO ONCE PRN 30 days HPI Comments Details: 33-yr-old female presents for f/u visit of MG and migraine. Pt denies any significant interval medical changes. She reports usually her migraines are well-controlled. However, when she has a MG exacerbation/flare-up, she has a daily migraine. Ubrelvy is still helpful. She had called the office since the last visit, reporting increased MG s/s. Thus, we placed an order for IVIG tx w/ pre-medication of ketorolac to prevent IVIG induced headache. She was having difficulty eating, swallowing, and her tongue becomes heavy, its difficult to chew and swallow, and people cannot understand her, and thus she was becoming a bit dehydrated. Still prone to SOB w/ walking and difficulty holding her infant son for too long. Denies diplopia. She just started the IVIG w/ IVF tx a couple of days ago. As her MG s/s were worse, she increased her Mestinon ER 180mg to 2 tabs q 3 hrs. Last labs in Jun 2024- CBC and CMP WNL w/ exception of BG 217 H HgA1C 11.1% Pt has not done additional interval scheduled labs. [facility] Medical History (Updated 11/05/24 @ 20:01 by NAYAN Chacon) Moderate recurrent major depression Chronic cough MYNOR (obstructive sleep apnea) COVID-19 vaccine series completed Chronic diarrhea Obesity due to excess calories Myasthenia gravis Asthma Sleep apnea GERD (gastroesophageal reflux disease) Morbid obesity CAD (coronary artery disease) Lower back pain Surgical History H/O section History of esophagogastroduodenoscopy (EGD) S/P thymectomy History of tonsillectomy and adenoidectomy History of cholecystectomy Family History Father Hypertension Diabetes Mother Diabetes Hypertension Maternal Grandfather Diabetes Hypertension Bone cancer Maternal Aunt Breast cancer Maternal Grandmother Diabetes Hypertension CVD (cardiovascular disease) Other Mental health disorder Social History Housing: Apartment Are you a primary post acute care nurse practitioner to a significant other at home: No Do you presently have visiting nurse or other home services: Yes Alcohol intake: never Patient Tobacco Use Status: Never used Tobacco e-Cigarette/Vaping Use: Never Used Second Hand Smoke Exposure: No service: No Current occupational status: unemployed Current occupational exposures/hazards: No Cognitive needs: Yes (walker) Hearing needs: No Vision needs: No Female Reproductive History Menstrual Age of Menarche: 11 Physical Exam Vital Signs: Last Vital Signs Pulse 94 10/18/24 14:21 BP 134/82 10/18/24 14:21 Pulse Ox 99 10/18/24 14:21 Oxygen Delivery Method Room Air 10/18/24 14:21 BMI result Body Mass Index 45.6 Const Other: Pt appears tired and uncomfortable w/o acute distress. General: cooperative Orientation/consciousness: patient oriented x3 Resp Effort & Inspection: normal respiratory effort and able to speak in complete sentences Neuro Other: Photophobic BLE MS 5-/5. Slow to stand. General: patient oriented x3 Cranial nerves: Yes CN's II-XII intact bilaterally Cognition (Neuro): normal cognition Psych Appearance: grossly normal Mental Status: mental status grossly normal Speech and movement: Normal speech and movement present Affect: normal affect Attitude: cooperative Quality Reporting (2019) Adult ([facility] 138/01/06/69) Smoking risk assessment performed?: Yes Patient Tobacco Use Status: Never used Tobacco Assessment & Plan Assessment & Plan (1) Myasthenia gravis, acetylcholine receptor antibody positive: Code(s): G70.00 - Myasthenia gravis without (acute) exacerbation Category: Medical (2) Migraine without aura: Code(s): G43.009 - Migraine without aura, not intractable, without status migrainosus Category: Medical Plan For achr-AB positive MG with systemic symptoms : Continue IVIG tx: IVIG Gammagard 10% at 50gm qd x's 5 days every 4 weeks w/ pre- tx w/ benadryl and toradaol- to prevent IVIG r/t headache. Order placed for Ketorolac 10mg tab po q 8 hrs, may use post-IVIG infusion prn LAUREN. If not available, may use Diclofena 6omg po bid prn instead (only during IVIG infusion week). Increase Mestinon ER to 2 tabs QID Mestinon IR 60mg BID-TID prn. Monitor for loose stools Will initiate prior auth for Vygart, as pt continues to have significant breakthrough MG s/s negatively affecting her quality of life and ability to care for her children, despite compliance w/ Azathioprine and Mestinon tx. Pt is not a candidate for corticosteroid tx d/t diabetes dx- last HgA1C 11%. Will confirm vaccination status. Vygart dose/cycle: 1,200mg IV q week x's 5, then 4 weeks off, then resume 1200mg IV q week x's 4 weeks, then 4 weeks off, then resume 1200mg IV q week x's 4- then re-assess. Once Vygart approved, will stop Azathioprine. For now, continue Azathioprine 50mg qam. Check CBC/CMP today and then q month. Previous trials: On Cellcept pt still has breakthrough MG s/s. Contraindications- Chronic corticosteroid tx d/t diabetes. For acute migraine tx: Continue Ubrelvy 100mg prn. May take w/ Tylenol. Acute migraine tx contraindications: all Triptans and DHE d/t HLD, CAD, ? For migraine prevention: Continue Nifedipine ER- used for CV dz. Future considerations: trialing alternate ant-HTN to Nifedipine, as this may exacerbate LAUREN. ? ? f/u in 1-3 months or sooner prn. Medications: New ketorolac 10 mg PO Q8H PRN 10 tabs 0RF pain 5 days diclofenac potassium do not take w/ ketorolac tab 50 mg PO BID PRN 30 tabs 0RF post-IVIG headache 30 days Refilled pyridostigmine bromide 30 - 60 mg (0.5 - 1 x 60 mg) PO TID 90 tabs 1RF 30 days G70.00 - Myasthenia gravis without (acute) exacerbation Coding Level of Care Code Est Pt Level 4 (99505) Diagnoses Myasthenia gravis, acetylcholine receptor antibody positive G70.00 Migraine without aura G43.009
[2024-10-18 14:21] VITALS: BP 134/82; PULSE 94; O2SAT 99; BMI 45.6
== END 2024-10-18 15:34 | disposition home or self-care (01) ==
PROVIDERS: PCP Internal Medicine; Visit Provider Nurse Practitioner Family
DX: G70.00 Myasthenia gravis without (acute) exacerbation (principal); G43.009 Migraine without aura, not intractable, without status migrainosus
CPT/HCPCS: 99214

== ENCOUNTER → 2024-10-18 14:19 | Outpatient (BNVA) | payer OTHER, SELFPAY | PROVIDERS: PCP Internal Medicine; Visit Provider Nurse Practitioner Family | DX: G70.00 Myasthenia gravis without (acute) exacerbation (principal); G43.009 Migraine without aura, not intractable, without status migrainosus | CPT/HCPCS: 99212 ==

== ENCOUNTER 2024-11-07 07:17 | Outpatient (REF) | payer OTHER, SELFPAY ==
[2024-11-07 07:31] LABS: MANUAL DIFF FLAG NO
[2024-11-07 08:00] LABS: Basophils Percent Auto 0.5 % (0-2); Eosinophils Absolute Auto 0.4 X10*3/uL (0.0-0.4); Eosinophils Percent Auto 6.1 % (0-4); Hematocrit 33.8 % (37.0-47.0); Imm Gran Abs Auto 0.02 X10*3/uL (0.00-0.03); Imm Gran Pct Auto 0.3 % (0.0-0.4); Lymphocytes Absolute Auto 1.3 X10*3/uL (1.2-4.9); Lymphocytes Percent Auto 22.4 % (20-40); Mean Corpuscular HGB Conc 32.5 g/dl (31.0-35.0); Mean Corpuscular Hemoglobin 33.1 pg (27.0-33.0); Mean Corpuscular Volume 101.8 fL (80.0-98.0); Mean Platelet Volume 10.2 fL (9.4-12.3); Monocytes Absolute Auto 0.3 X10*3/uL (0.1-1.2); Monocytes Percent Auto 5.7 % (2-11); Neutrophils Absolute Auto 3.7 x10*3/uL (2.0-8.3); Platelet Count 278 X10*3/uL (160-400); Red Blood Count 3.32 X10*6/uL (4.20-5.50); Red Cell Distribution Width 18.8 % (11.0-16.0); White Blood Count 5.8 X10*3/uL (4.8-10.8)
[2024-11-07 08:24] LABS: Iron 52 mcg/dL (30-160); Percent Iron Saturation 22 % (15-50); Total Iron Binding Capacity 236 mcg/dL (228-428); Unsaturated Iron Binding 184 ug/dL
[2024-11-07 08:39] LABS: Vitamin D 25-OH Total 12.3 ng/mL (>30)
[2024-11-07 08:52] LABS: Folate 10.2 ng/mL (> or = 4.0); Vitamin B12 264 pg/mL (200-900)
== END 2024-11-07 07:18 | disposition home or self-care (01) ==
LOC: HO.LAB 07:17
PROVIDERS: PCP Internal Medicine; Visit Provider Nurse Practitioner Family
DX: G70.00 Myasthenia gravis without (acute) exacerbation (principal); D64.9 Anemia, unspecified; E53.8 Deficiency of other specified B group vitamins; E55.9 Vitamin D deficiency, unspecified
CPT/HCPCS: 36415; 82306; 82607; 82746; 83540; 85025

== ENCOUNTER 2024-11-09 10:52 | Emergency (ER) | payer OTHER, SELFPAY ==
[2024-11-09 11:13] VITALS: BP 149/90; PULSE 75; RESP 16; TEMP 37; O2SAT 99; BMI 46.8
--- NOTE | 2024-11-09 11:19 | ED_ITS ---
HPI - General Adult General Chief complaint: Allergic Reaction Stated complaint: issues with both eyes Time Seen by Provider: 11/09/24 11:17 Source: patient, RN notes reviewed, old records reviewed and director work Mode of arrival: ambulatory Limitations: language barrier History of Present Illness ED Provider: Radha HPI narrative: 34-year-old female presents for evaluation of itchy eyes and face. Patient reports that her child was recently gifted a cat The patient reports that she has a known allergy to cats. She states that she gets itchy eyes and itchy face. She has not tried any medication to alleviate her symptoms She reports when she is home she feels short of breath Related Data Home Medications ?Medication ?Instructions ?Recorded ?Confirmed nebulizers 01/13/23 10/22/24 pen needle, diabetic 31 gauge x #1,200 ea 08/11/23 10/22/24/ (BD Ultra-Fine Mini Pen Needle) Previous Rx's ?Medication ?Instructions ?Recorded albuterol sulfate 90 mcg/actuation 2 inh inhalation QID PRN shortness 05/25/22 aerosol inhaler of breath or wheezing #6.7 grams albuterol sulfate 2.5 mg/3 mL 2.5 mg (3 mL) inhalation QID PRN 06/11/22 (0.083 %) solution for nebulization shortness of breath or wheezing #180 mL fluticasone propionate 50 1 spray intranasal BID 30 days #16 07/26/23 mcg/actuation nasal grams spray,suspension (Flonase Allergy Relief) budesonide-formoterol HFA 160 2 inh inhalation BID #10.2 ea 11/29/23 mcg-4.5 mcg/actuation aerosol inhaler (Symbicort) azathioprine 50 mg tablet 50 mg PO DAILY 30 days #30 tabs 06/14/24 insulin glargine 100 unit/mL (3 15 unit (0.15 mL) subcut QAM 30 06/21/24 mL) subcutaneous pen (Lantus days #4.5 mL Solostar U-100 Insulin) pen needle, diabetic 31 gauge x #100 ea 06/21/24/ (Comfort EZ Pen [place]) blood sugar diagnostic (FreeStyle #100 ea 07/02/24 Lite Strips) blood-glucose meter (FreeStyle #1 ea 07/02/24 Lite Meter kit) lancets 28 gauge (FreeStyle #100 ea 07/02/24 Lancets) ubrogepant 100 mg tablet (Ubrelvy) 50 - 100 mg (0.5 - 1 x 100 mg) PO 07/03/24 ONCE PRN migraine headache 30 days #16 tabs nifedipine 30 mg tablet,extended 30 mg PO DAILY 90 days #90 tabs 08/02/24 release semaglutide 0.25 mg or 0.5 mg (2 0.25 mg (0.368 mL) subcut QWEEK 4 10/02/24 mg/3 mL) subcutaneous pen injector weeks #1.472 mL (Ozempic) omeprazole 20 mg capsule,delayed 20 mg PO DAILY 90 days #90 caps 10/05/24 release pyridostigmine bromide 180 mg 360 mg (2 x 180 mg) PO QID 30 days 10/16/24 tablet,extended release #240 tabs diclofenac potassium 50 mg tablet 50 mg PO BID PRN post-IVIG 10/18/24 headache 30 days #30 tabs ketorolac 10 mg tablet 10 mg PO Q8H PRN pain 5 days #10 10/18/24 tabs pyridostigmine bromide 60 mg tablet 30 - 60 mg (0.5 - 1 x 60 mg) PO 10/18/24 TID 30 days #90 tabs semaglutide 0.25 mg or 0.5 mg (2 0.5 mg (0.736 mL) subcut QWEEK 4 10/30/24 mg/3 mL) subcutaneous pen injector weeks #2.944 mL (Ozempic) cetirizine 10 mg tablet (Zyrtec) 10 mg PO DAILY #21 tabs 11/09/24 olopatadine 0.2 % eye drops 1 drp ophthalmic (eye) DAILY PRN 11/09/24 (Pataday Once Daily Relief) itching #2.5 mL Allergies Allergy/AdvReac Type Severity Reaction Status Date / Time erythromycin base Allergy Intermediate Swelling Verified 11/09/24 11:15 levofloxacin [From LEVAQUIN] Allergy Intermediate RASH AND Verified 11/09/24 11:15 HIVES Penicillins [PENICILLINS] Allergy Intermediate Swelling Verified 11/09/24 11:15 metformin AdvReac Severe contraindicated Verified 11/09/24 11:15 in myasthenia gravis dulaglutide [From Trulicity] AdvReac Intermediate inadequate Verified 11/09/24 11:15 response Review of Systems Constitutional: Constitutional: Denies body ache(s), Denies chills, Denies fever(s), Denies frequent falls and Denies headache(s) Eyes: Eyes: Denies blurry vision, Denies eye discharge and Reports itchy eyes ENT: Denies vertigo, Denies dizziness and Denies headache(s) Cardiovascular: Cardiovascular: Denies chest pain and Reports dyspnea Respiratory: Respiratory: Denies cough and Reports dyspnea Gastrointestinal: Gastrointestinal: Denies abdominal pain, Denies nausea and Denies vomiting Musculoskeletal: Musculoskeletal: Denies back pain Neurologic: Denies vertigo, Denies dizziness, Denies frequent falls and Denies headache(s) Psychiatric: Psychiatric: Denies anxiety Allergic/Immunologic: Allergic/Immunologic: Reports itchy eyes PMFSH Past Medical History Medical History (Updated 11/09/24 @ 11:21 by Jose Garcia) Moderate recurrent major depression Chronic cough MYONR (obstructive sleep apnea) COVID-19 vaccine series completed Chronic diarrhea Obesity due to excess calories Myasthenia gravis Asthma Sleep apnea GERD (gastroesophageal reflux disease) Morbid obesity CAD (coronary artery disease) Lower back pain Surgical History H/O section History of esophagogastroduodenoscopy (EGD) S/P thymectomy History of tonsillectomy and adenoidectomy History of cholecystectomy Family History Family History Father Hypertension Diabetes Mother Diabetes Hypertension Maternal Grandfather Diabetes Hypertension Bone cancer Maternal Aunt Breast cancer Maternal Grandmother Diabetes Hypertension CVD (cardiovascular disease) Other Mental health disorder Social History Social History Housing: Apartment Are you a primary animal care taker to a significant other at home: No Do you presently have visiting nurse or other home services: Yes Alcohol intake: never Patient Tobacco Use Status: Never used Tobacco e-Cigarette/Vaping Use: Never Used Second Hand Smoke Exposure: No Advance Directives: No Advance Directives Information Provided: Yes service: No Current occupational status: unemployed Current occupational exposures/hazards: No Cognitive needs: Yes (walker) Hearing needs: No Vision needs: No Physical Exam ED Vital Signs: Vital Signs - 24 hr 11/09/24 11:13 Temperature 98.6 F Pulse Rate 75 Respiratory Rate 16 Blood Pressure 149/90 H Pulse Oximetry 99 Oxygen Delivery Method Room Air BMI result Body Mass Index 46.8 Const General: healthy appearing, comfortable, no acute distress, alert and awake Nutritional Appearance: well nourished Orientation/consciousness: patient oriented x3 HENMT Head: Yes normocephalic and Yes atraumatic Eyes Other: There is faint conjunctival injection, there is no discharge Eyelids: Yes eyelids normal Sclerae: sclerae normal Corneas: corneas normal Pupils: Equal, round and reactive pupils present EOM: EOMs intact bilaterally Neck Neck: Yes full ROM Resp Effort & Inspection: normal respiratory effort, able to speak in complete sentences and not labored Skin General skin exam: elasticity normal Neuro General: patient oriented x3 Cranial nerves: Yes Equal, round and reactive pupils present and Yes Bilaterally intact EOM present Cognition (Neuro): normal cognition Extrem Other: Moving all extremities well without any obvious deformities Medical Decision Making Medical Decision Making MDM Narrative: 34-year-old female presents for evaluation of itchy eyes and itchy face. Her symptoms started when her child that she lives this was given a cat. The patient has known cat allergies. I discussed the importance of allergy medication, if her symptoms are unbearable she may need to return home the kitten. The patient's lungs are clear to auscultation, she is well-appearing. Differential Diagnosis Differential Diagnoses: The differential diagnosis associated with the presentation includes Allergies Allergic conjunctivitis Anaphylaxis less likely Urticaria Discharge Plan Discharge Clinical Impression: Acute allergic conjunctivitis Patient Disposition: Home, Self-Care Instructions: Allergies (ED) Additional Instructions: Use the Patanol eye drops as prescribed He has will help with symptoms related to allergies I also recommend taking Zyrtec every day to help with the allergies related to the cat Follow-up with your primary doctor, return for new or worsening symptoms If your symptoms do not improve with allergy medication, you may want to re home the cat Prescriptions: New olopatadine [Pataday Once Daily Relief] 0.2 % drops 1 drp ophthalmic (eye) DAILY PRN (Reason: itching) Qty: 2.5 0RF cetirizine [Zyrtec] 10 mg tablet 10 mg PO DAILY Qty: 21 0RF No Action fluticasone propionate [Flonase Allergy Relief] 50 mcg/actuation spray,suspension 1 spray intranasal BID 30 Days Qty: 16 0RF Rx Instructions: administer into each nostril budesonide-formoterol [Symbicort] 160-4.5 mcg/actuation HFA aerosol inhaler 2 inh inhalation BID Qty: 10.2 11RF azathioprine 50 mg tablet 50 mg PO DAILY 30 Days Qty: 30 3RF (DME) blood-glucose meter [FreeStyle Lite Meter] Kit See Rx Instructions .ROUTE .MEDSUPPLY Qty: 1 0RF Rx Instructions: As directed 3x/day (DME) FreeStyle Lite Strips Strip See Rx Instructions .ROUTE .MEDSUPPLY Qty: 100 11RF Rx Instructions: As directed three times a day (DME) lancets [FreeStyle Lancets] 28 gauge misc See Rx Instructions .Route Qty: 100 11RF Rx Instructions: Use 1 lancet three times a day Ubrelvy 100 mg tablet 50 - 100 mg PO ONCE PRN (Reason: migraine headache) 30 Days Qty: 16 3RF Rx Instructions: take at onset of migraine, may repeat in 2hrs (may take w/ Tylenol) nifedipine 30 mg tablet extended release 30 mg PO DAILY 90 Days Qty: 90 1RF Ozempic 0.25 mg or 0.5 mg (2 mg/3 mL) pen injector 0.25 mg subcut QWEEK 28 Days Qty: 1.472 0RF omeprazole 20 mg capsule,delayed release(DR/EC) 20 mg PO DAILY 90 Days Qty: 90 0RF pyridostigmine bromide 180 mg tablet extended release 360 mg PO QID 30 Days Qty: 240 6RF Ozempic 0.25 mg or 0.5 mg (2 mg/3 mL) pen injector 0.5 mg subcut QWEEK 28 Days Qty: 2.944 0RF albuterol sulfate 90 mcg/actuation HFA aerosol inhaler 2 inh inhalation QID PRN (Reason: shortness of breath or wheezing) Qty: 6.7 0RF (DME) pen needle, diabetic [BD Ultra-Fine Mini Pen Needle] 31 gauge x 3/16 needle See Rx Instructions .ROUTE QID Qty: 1200 Rx Instructions: As directed insulin glargine [Lantus Solostar U-100 Insulin] 100 unit/mL (3 mL) insulin pen 15 unit subcut QAM 30 Days Qty: 4.5 0RF (DME) pen needle, diabetic [Comfort EZ Pen [place]] 31 gauge x 5/16 needle See Rx Instructions .Route Qty: 100 3RF Rx Instructions: As directed (DME) nebulizers Misc See Rx Instructions .Route Rx Instructions: As directed albuterol sulfate 2.5 mg /3 mL (0.083 %) solution for nebulization 2.5 mg inhalation QID PRN (Reason: shortness of breath or wheezing) Qty: 180 6RF ketorolac 10 mg tablet 10 mg PO Q8H PRN (Reason: pain) 5 Days Qty: 10 0RF diclofenac potassium 50 mg tablet 50 mg PO BID PRN (Reason: post-IVIG headache) 30 Days Qty: 30 0RF Rx Instructions: do not take w/ ketorolac tab pyridostigmine bromide 60 mg tablet 30 - 60 mg PO TID 30 Days Qty: 90 1RF Print Language: [place]
== END 2024-11-09 11:31 | disposition home or self-care (01) ==
PROVIDERS: Emergency Provider Emergency Medicine; PCP Internal Medicine
DX: H10.13 Acute atopic conjunctivitis, bilateral (principal); R06.02 Shortness of breath
CPT/HCPCS: 99281; 99283

== ENCOUNTER 2024-11-10 07:29 | Outpatient (REF) | payer OTHER, SELFPAY ==
[2024-11-10 07:45] LABS: MANUAL DIFF FLAG NO
[2024-11-10 08:25] LABS: Basophils Percent Auto 0.3 % (0-2); Eosinophils Absolute Auto 0.2 X10*3/uL (0.0-0.4); Eosinophils Percent Auto 3.7 % (0-4); Hematocrit 32.6 % (37.0-47.0); Hemoglobin 10.8 g/dl (12.0-16.0); Imm Gran Abs Auto 0.02 X10*3/uL (0.00-0.03); Imm Gran Pct Auto 0.3 % (0.0-0.4); Lymphocytes Absolute Auto 2.2 X10*3/uL (1.2-4.9); Lymphocytes Percent Auto 37.7 % (20-40); Mean Corpuscular HGB Conc 33.1 g/dl (31.0-35.0); Mean Corpuscular Hemoglobin 33.1 pg (27.0-33.0); Mean Platelet Volume 10.1 fL (9.4-12.3); Monocytes Absolute Auto 0.5 X10*3/uL (0.1-1.2); Monocytes Percent Auto 8.4 % (2-11); Neutrophils Absolute Auto 2.8 x10*3/uL (2.0-8.3); Neutrophils Percent Auto 49.6 % (45-73); Platelet Count 273 X10*3/uL (160-400); Red Blood Count 3.26 X10*6/uL (4.20-5.50); Red Cell Distribution Width 16.7 % (11.0-16.0); White Blood Count 5.7 X10*3/uL (4.8-10.8)
== END 2024-11-10 07:30 | disposition home or self-care (01) ==
LOC: HO.LAB 07:29
PROVIDERS: Nurse Practitioner Family; PCP Internal Medicine; Visit Provider Internal Medicine
DX: G70.00 Myasthenia gravis without (acute) exacerbation (principal)
CPT/HCPCS: 36415; 85025

== ENCOUNTER 2024-11-21 08:56 | Outpatient (AMB) | payer OTHER, SELFPAY ==
[2024-11-21 09:10] VITALS: BP 128/86; PULSE 97; O2SAT 99; BMI 46.2
--- NOTE | 2024-11-21 09:10 | A.OFFVIS_ITS ---
Vital Signs 11/21/24 09:10 Height 5 ft 5 in Weight 277 lb 12.519 oz BMI 46.2 BP 128/86 Blood Pressure Location Rt brachial Position Sitting Pulse 97 Pulse Source Pulse Oximeter Pulse Oximetry (%) 99 Oxygen Delivery Method Room Air Intake Visit Reasons: myasthenia gravis Allergies erythromycin base Allergy (Intermediate, Verified 11/21/24 09:13) Swelling levofloxacin [From LEVAQUIN] Allergy (Intermediate, Verified 11/21/24 09:13) RASH AND HIVES Penicillins [PENICILLINS] Allergy (Intermediate, Verified 11/21/24 09:13) Swelling metformin Adverse Reaction (Severe, Verified 11/21/24 09:13) contraindicated in myasthenia gravis dulaglutide [From Trulicity] Adverse Reaction (Intermediate, Verified 11/21/24 09:13) inadequate response HPI Comments Details: The patient is a 34-year-old woman with a known history of myasthenia gravis status post thymectomy back in 2017 and previously on immunosuppression with both prednisone and mycophenolate. The patient also has a history of asthma. Apparently she moved from [place] to [place] and she has not had regular care for myasthenia gravis. She was referred to Neurology. There was a mixup with the appointment in the patient was canceled. Therefore she has been off the mycophenolate and the prednisone for about a couple months. She also uses pyridostigmine for her myasthenia gravis symptoms but she has also been off the medication for a couple months. She has been noticing increasing GI symptoms with nausea fatigue dizziness. She was referred to Gastroenterology. She was having undergo an endoscopy and also colonoscopy today. However, she was found to have significant coughing and so to be unstable for the procedure. On further questioning the patient does have a productive cough with green sputum. [id number] severity. She does have a rescue inhaler that she uses for asthma. She also has a nebulizer but does not have any medication for it. She denies any fevers or chills. She denies any choking episodes. We did have an opening in the office therefore we had her come down. The patient currently feels like she her myasthenia gravis is flaring. She is concerned about repetitive movements ears should wean because she does not want to develop weakness. Specially with her medications. in the office we did have her undergo a spirometry test. Demonstrated that her FEV1 and FVC are both decreased down to the 70s which is suggestive of a restrictive ventilatory defect. No evidence of any obstruction. She also had some plateauing of the flows during the inspiratory effort which could cover response to vocal cord paralysis. Will continue to monitor closely her symptoms. She does urgently need to be seen by Neurology. 07/17/2022 the patient is here for a pulmonary follow-up visit. Overall she is doing a lot better. She completed the antibiotics. She was also seen urgently by Neurology which I appreciate. There taking good care her. She will be starting IVIG therapy for myasthenia gravis. And she also continues on all her other medicines. Patient is doing better from a respiratory status. She does have a rescue inhaler although she seems to using it between 3 to 4 times a week. Therefore I will go ahead and start her on a Symbicort maintenance inhaler which will work better for her. In the meantime the patient will get a chest x-ray. From a pulmonary standpoint the patient is able to proceed with her a elective colonoscopy once the patient is started on her IVIG therapy which I believe is next week. If the patient has any issues or any concerns she is to call the office for an earlier evaluation otherwise will follow-up in 6 months. 01/13/2023 the patient is here for pulmonary follow-up visit. She is complaining of significant headaches. She has migraines. They be more frequent. She is also having significant daytime drowsiness. Her Toulon score is elevated 12/24. She did have a sleep study back in 2017 which would reviewed demonstrating moderate sleep apnea. She has not had a sleep test sent. Therefore will go ahead and repeat 1. The patient understands that she will likely need CPAP therapy to treat her migraines. She continues with Symbicort. This has been affecting beneficial. She did have COVID-19 about a month ago. Now she has this cough which difficult to clear phlegm. Usually is okay but with myasthenia gravis aware that she would fatigue from all the coughing. Therefore I will provide her with a flutter valve to help her as well. She she also have a chest x-ray when able. Also to note, the patient had to stop the IVIG because he was resulting worsening headaches. At this point clinically she is doing better from the myasthenia gravis so she was placed on hold. If her symptoms worsen then she will be premedicated for her IVIG. 03/22/2023 the patient is here for a pulmonary follow-up visit. She continues to have her headaches and her daytime drowsiness. Toulon score still elevated 11/24. She did have a home sleep study but unfortunately did not record and she has a redo it. We did call centralized scheduling to get the process moving for her. Has already been a few months. In the meantime she has been working closely with neurologist regarding her myasthenia gravis treatment. She is back on IVIG. She is noticing some increased lower extremity edema and swelling. She is concerned because she was previously on diuretics and she is no longer getting them. She has a trip planned to [place]. I will give her enough medication for the trip but then after that she needs to address that with her primary care. She still has not had her colonoscopy. This point the patient is medically optimized from a pulmonary standpoint may proceed with her GI procedures. Will follow-up after her sleep study. 09/13/2023 the patient is here for a pulmonary follow-up visit. Overall the patient has been doing about same. Still complains of daytime drowsiness with an elevated Toulon score 11/24. The patient did have a sleep study in the past demonstrating sleep apnea. She did have a recent home sleep study demonstrating no evidence of any sleep apnea. Although with her continued symptoms and cardiovascular risk factors will be reasonable to order an in-lab sleep study. The patient now is 20 weeks gestation. Her is going well though she is high risk she has been followed closely at [facility]. The patient is fine to have a scheduled when she is due. She continues with her IVIG in addition to immunomodulator therapy. The patient will follow-up after her in- lab sleep study at this time. 11/21/2024 the patient is here for a pulmonary follow-up visit. She has been doing fairly good from a respiratory status although her myasthenia gravis is active. She had been on Imuran but was not as effective. Therefore she started IgG again. She is still using her medications as prescribed. She still uses her Symbicort. She has not had to use it on a regular basis which is good. Denies any wheezing or chest tightness. Has not had any difficulty with her breathing at this time. The patient has been having some daytime drowsiness. Her Toulon score is 11/24. However, she does have a and therefore difficult for her to have an in-lab sleep study. Will hold off until her next follow-up will decide if we need to do 1. In the meantime she has not gotten any vaccines and she was felt not to. I did recommend she get a flu shot at least. But the patient is holding off at this time until she follows up with Neurology. [facility] Medical History (Updated 11/12/24 @ 21:24 by NAYAN Chacon) Moderate recurrent major depression Chronic cough MYNOR (obstructive sleep apnea) COVID-19 vaccine series completed Chronic diarrhea Obesity due to excess calories Myasthenia gravis Asthma Sleep apnea GERD (gastroesophageal reflux disease) Morbid obesity CAD (coronary artery disease) Lower back pain Surgical History H/O section History of esophagogastroduodenoscopy (EGD) S/P thymectomy History of tonsillectomy and adenoidectomy History of cholecystectomy Family History Father Hypertension Diabetes Mother Diabetes Hypertension Maternal Grandfather Diabetes Hypertension Bone cancer Maternal Aunt Breast cancer Maternal Grandmother Diabetes Hypertension CVD (cardiovascular disease) Other Mental health disorder Social History (Reviewed 11/21/24 @ 09:13 by Marla Alvarado [facility]) Housing: Apartment Are you a primary career center advisor to a significant other at home: No Do you presently have visiting nurse or other home services: Yes Alcohol intake: never Patient Tobacco Use Status: Never used Tobacco e-Cigarette/Vaping Use: Never Used Second Hand Smoke Exposure: No service: No Current occupational status: unemployed Current occupational exposures/hazards: No Cognitive needs: Yes (walker) Hearing needs: No Vision needs: No Female Reproductive History Menstrual Age of Menarche: 11 Review of Systems Const Reports daytime sleepiness, Reports fatigue, Denies fever(s), Reports headache(s), Denies weakness and Reports weight gain ENT Denies dizziness and Reports headache(s) Card Denies chest pain, Denies chest pain with activity, Denies syncope, Denies rapid heart rate, Denies pedal edema, Denies edema, Denies leg edema, Denies lightheadedness, Denies palpitations, Denies dyspnea, Denies dyspnea on exertion and Denies orthopnea Resp Denies chest congestion, Reports cough, Denies dyspnea and Denies dyspnea on exertion GI Denies hematochezia and Denies change in stool character Musc Denies abnormal gait, Denies muscle weakness, Denies numbness, Denies radiating pain into limb and Denies tingling Neuro Denies abnormal gait, Denies dizziness, Denies syncope, Reports headache(s), Denies numbness, Denies tingling and Denies weakness Endo Reports fatigue and Denies palpitations Physical Exam Vital Signs: Last Vital Signs Pulse 97 11/21/24 09:10 BP 128/86 11/21/24 09:10 Pulse Ox 99 11/21/24 09:10 Oxygen Delivery Method Room Air 11/21/24 09:10 BMI result Body Mass Index 46.2 Const General: comfortable and no acute distress HEENT Head: Yes normocephalic and Yes atraumatic Eyes Sclerae: sclerae normal EOM: EOMs intact bilaterally Neck Neck: Yes no lymphadenopathy, Yes trachea midline and Yes no JVD Thyroid: Thyroid normal Chest Chest palpation & inspection: normal inspection of the chest Resp Effort & Inspection: able to speak in complete sentences Auscultation: diminished lung sounds Cardio Rate: regular rate Rhythm: regular rhythm Heart sounds: S1 normal heart sound present, S2 normal heart sound present and no murmurs Peripheral pulses: Peripheral pulses 2+ throughout GI Inspection: Yes obesity Palpation (GI): Soft to palpation and nontender Auscultation: normal bowel sounds Skin Other: No acanthosis nigricans or diabetic dermopathy Neuro Deep tendon reflexes (DTR's): Rt Biceps (C5, C6): 2+, Left biceps reflex intensity grade: 2+, Right patellar reflex intensity grade: 2+ and Left patellar reflex intensity grade: 2+ Extrem Other: General: Yes normal gait, No clubbing, No cyanosis and No edema Psych Appearance: well kempt Speech and movement: Normal speech and movement present Affect: normal affect Attitude: cooperative Quality Reporting (2019) Adult ([facility] 138/[birth year]/06/[birth year]) Smoking risk assessment performed?: Yes Patient Tobacco Use Status: Never used Tobacco Assessment & Plan Assessment & Plan (1) MYNOR (obstructive sleep apnea): Code(s): G47.33 - Obstructive sleep apnea (adult) (pediatric) Category: Medical (2) Myasthenia gravis: Code(s): G70.00 - Myasthenia gravis without (acute) exacerbation Category: Medical (3) Asthma: Comment: exacerbation in 2016 w/ICU admission Code(s): J45.909 - Unspecified asthma, uncomplicated Category: Medical Qualifiers: Asthma complication type: uncomplicated Asthma persistence: intermittent Asthma severity: mild Qualified Code(s): J45.20 - Mild intermittent asthma, uncomplicated (4) Adrenal insufficiency: Code(s): E27.40 - Unspecified adrenocortical insufficiency Category: Medical Plan continue Symbicort short-acting beta agonist as needed consider in lab PSG CPT with acapella valve antihistamines over the counter F/U 6 months Medications: Discontinued cholecalciferol (vitamin D3) Discontinued Reason: Duplicate 75 mcg PO DAILY 90 days 90 tabs 0RF R79.89 - Other specified abnormal findings of blood chemistry Coding Level of Care Code Est Pt Level 4 (50656) Diagnoses MYNOR (obstructive sleep apnea) G47.33 Myasthenia gravis G70.00 Mild intermittent asthma without complication J45.20 Asthma complication type: uncomplicated Asthma persistence: intermittent Asthma severity: mild Adrenal insufficiency E27.40 Time Spent (min) 16
== END 2024-11-21 09:39 | disposition home or self-care (01) ==
PROVIDERS: PCP Internal Medicine; Visit Provider Hospitalist
DX: G47.33 Obstructive sleep apnea (adult) (pediatric) (principal); G70.00 Myasthenia gravis without (acute) exacerbation; J45.20 Mild intermittent asthma, uncomplicated; E27.40 Unspecified adrenocortical insufficiency
CPT/HCPCS: 99214

== ENCOUNTER → 2024-11-21 08:56 | Outpatient (BNVA) | payer OTHER, SELFPAY | PROVIDERS: PCP Internal Medicine; Visit Provider Hospitalist | DX: G70.00 Myasthenia gravis without (acute) exacerbation (principal); G47.33 Obstructive sleep apnea (adult) (pediatric); J45.20 Mild intermittent asthma, uncomplicated; E27.40 Unspecified adrenocortical insufficiency | CPT/HCPCS: 99212 ==

== ENCOUNTER 2024-11-28 07:41 | Outpatient (REF) | payer OTHER, SELFPAY ==
[2024-11-28 08:04] LABS: MANUAL DIFF FLAG NO
[2024-11-28 08:21] LABS: Basophils Percent Auto 0.4 % (0-2); Eosinophils Absolute Auto 0.3 X10*3/uL (0.0-0.4); Hematocrit 37.6 % (37.0-47.0); Hemoglobin 12.7 g/dl (12.0-16.0); Imm Gran Abs Auto 0.03 X10*3/uL (0.00-0.03); Imm Gran Pct Auto 0.4 % (0.0-0.4); Lymphocytes Absolute Auto 2.5 X10*3/uL (1.2-4.9); Lymphocytes Percent Auto 29.4 % (20-40); Mean Corpuscular HGB Conc 33.8 g/dl (31.0-35.0); Mean Corpuscular Hemoglobin 31.8 pg (27.0-33.0); Mean Platelet Volume 10.1 fL (9.4-12.3); Monocytes Absolute Auto 0.4 X10*3/uL (0.1-1.2); Neutrophils Absolute Auto 5.2 x10*3/uL (2.0-8.3); Neutrophils Percent Auto 61.8 % (45-73); Platelet Count 334 X10*3/uL (160-400); Red Cell Distribution Width 13.7 % (11.0-16.0); White Blood Count 8.3 X10*3/uL (4.8-10.8)
[2024-11-28 08:27] LABS: Iron 57 mcg/dL (30-160); Percent Iron Saturation 20 % (15-50); Total Iron Binding Capacity 280 mcg/dL (228-428); Unsaturated Iron Binding 223 ug/dL
[2024-11-28 08:42] LABS: Ferritin 173 ng/mL (10-122)
[2024-11-29 18:58] LABS: Homocysteine 6.6 umol/L (<10.4)
[2024-12-02 04:44] LABS: Methylmalonic Acid 186 nmol/L (55-335)
[2024-12-03 14:54] LABS: Nicotinamide <20 ng/mL (see note); Vit B3 - Nicotinic Acid <20 ng/mL (see note); Vitamin B2 (Riboflavin) 27.5 nmol/L (6.2-39.0)
[2024-12-04 12:49] LABS: Vitamin B6 5.8 ng/mL (2.1-21.7)
[2024-12-04 13:49] LABS: Vitamin B1 10 nmol/L (8-30)
[2024-12-06 16:03] LABS: Vitamin B5 (Pantothenic Acid) <=40 ng/mL (<275)
== END 2024-11-28 07:42 | disposition home or self-care (01) ==
LOC: HO.LAB 07:41
PROVIDERS: PCP Internal Medicine; Visit Provider Nurse Practitioner Family
DX: D64.9 Anemia, unspecified (principal); G70.00 Myasthenia gravis without (acute) exacerbation
CPT/HCPCS: 36415; 82728; 83090; 83540; 83921; 84207; 84252; 84425; 84591; 85025

== ENCOUNTER 2024-12-07 08:59 | Outpatient (AMB) | payer OTHER, SELFPAY ==
[2024-12-07 09:10] VITALS: BP 126/80; BMI 46.8
--- NOTE | 2024-12-07 09:10 | MHC.PC.OV ---
Vital Signs 12/07/24 09:10 Height 5 ft 5 in Weight 281 lb BMI 46.8 BP 126/80 Blood Pressure Location Lt brachial Position Sitting Intake Visit Reasons: Annual Exam Intake Note: Patient here for a physical exam Photoengraving Sketch Maker Required: Yes Photoengraving Sketch Maker Language: Rad Tech Name: Nemo Ortiz MD Information Interpreted: non-clinical & clinical Accompanied by: Child Allergies erythromycin base Allergy (Intermediate, Verified 12/07/24 09:19) Swelling levofloxacin [From LEVAQUIN] Allergy (Intermediate, Verified 12/07/24 09:19) RASH AND HIVES Penicillins [PENICILLINS] Allergy (Intermediate, Verified 12/07/24 09:19) Swelling metformin Adverse Reaction (Severe, Verified 12/07/24 09:19) contraindicated in myasthenia gravis dulaglutide [From Trulicity] Adverse Reaction (Intermediate, Verified 12/07/24 09:19) inadequate response Medication List - Last Reconciled 12/07/24 by Nemo Ortiz MD albuterol sulfate 90 mcg/actuation 2 inhalations inhalation QID PRN albuterol sulfate 2.5 mg (3 mL) inhalation QID PRN azathioprine 50 mg PO DAILY 30 days blood sugar diagnostic (FreeStyle Lite Strips) As directed three times a day blood-glucose meter (FreeStyle Lite Meter kit) As directed 3x/day budesonide-formoterol 160-4.5 mcg/actuation (Symbicort) 2 inhalations inhalation BID cetirizine (Zyrtec) 10 mg PO DAILY cholecalciferol (vitamin D3) 25 mcg PO DAILY 30 days diclofenac potassium 50 mg PO BID PRN 30 days ferrous sulfate (Iron (ferrous sulfate)) 325 mg PO DAILY fluticasone propionate 50 mcg/actuation (Flonase Allergy Relief) 1 spray intranasal BID 30 days ketorolac 10 mg PO Q8H PRN 5 days lancets (FreeStyle Lancets) Use 1 lancet three times a day nebulizers As directed nifedipine ER 30 mg PO DAILY 90 days omeprazole 20 mg PO DAILY 90 days pen needle, diabetic (BD Ultra-Fine Mini Pen Needle) As directed pen needle, diabetic (Comfort EZ Pen [place]) As directed pyridostigmine bromide 30 - 60 mg (0.5 - 1 x 60 mg) PO TID 30 days pyridostigmine bromide ER 360 mg (2 x 180 mg) PO QID 30 days semaglutide (Ozempic) 0.5 mg (0.736 mL) subcut QWEEK 4 weeks ubrogepant (Ubrelvy) 50 - 100 mg (0.5 - 1 x 100 mg) PO ONCE PRN 30 days Tobacco use date assessed: 12/07/24 Dental Screening Dental Screen Date: 12/07/24 Did you have a dental visit in the last 12 months?: No Did you have a dental problem in the last 6 months where you did not have access to dental care?: No Was dental information given to patient?: Patient has dentist HPI HPI Comments History of Present Illness Details The patient is a 34-year-old female presenting with a history of asthma, allergic rhinitis, migraines, Type 2 Diabetes Mellitus, and obesity for her physical exam. Her asthma is managed with Symbicort and she also takes Zyrtec for allergic rhinitis. Migraines are treated with Ubrelvy. She has a history of Type 2 Diabetes Mellitus with a Hemoglobin A1c of 6.1, indicating good control. She weighs 281 pounds and has a BMI of 46.8, corresponding with obesity. It was advised that she lose additional weight, as she already lost approximately 100 pounds. In terms of surgical history, she has undergone a cholecystectomy, section, endoscopy, thymectomy, tonsillectomy, and adenoidectomy. Most recent Pap smear was in 2021. Family history includes parents alive with diabetes and hypertension. The patient denies current tobacco use and previous alcohol consumption. Previous PHQ-9 assessment has been completed. She has depression and follows with counseling. - Received pneumococcal vaccine in 2015. - Hemoglobin A1c at 6.1 today, well-controlled diabetes. - Hemoglobin level at 12.7, within normal range. - No recent cholesterol or proteinuria lab results; further lab work required. 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 [facility] Medical History (Updated 12/07/24 @ 12:09 by Nemo Ortiz MD) Myasthenia gravis Moderate recurrent major depression Chronic cough MYNOR (obstructive sleep apnea) COVID-19 vaccine series completed Chronic diarrhea Obesity due to excess calories Myasthenia gravis Asthma Sleep apnea GERD (gastroesophageal reflux disease) Morbid obesity CAD (coronary artery disease) Lower back pain Surgical History H/O section History of esophagogastroduodenoscopy (EGD) S/P thymectomy History of tonsillectomy and adenoidectomy History of cholecystectomy Family History Father Hypertension Diabetes Mother Diabetes Hypertension Maternal Grandfather Diabetes Hypertension Bone cancer Maternal Aunt Breast cancer Maternal Grandmother Diabetes Hypertension CVD (cardiovascular disease) Other Mental health disorder Social History Housing: Apartment Are you a primary career resource specialist to a significant other at home: No Do you presently have visiting nurse or other home services: Yes Alcohol intake: never Patient Tobacco Use Status: Never used Tobacco e-Cigarette/Vaping Use: Never Used Second Hand Smoke Exposure: No service: No Current occupational status: unemployed Current occupational exposures/hazards: No Cognitive needs: Yes (walker) Hearing needs: No Vision needs: No Female Reproductive History Menstrual Age of Menarche: 11 Questionnaire PHQ-9 Over the last 2 weeks, how often have you been bothered by any of the following problems? 1. Little interest or pleasure in doing things: nearly every day 2. Feeling down, depressed, or hopeless: not at all 3. Trouble falling or staying asleep, or sleeping too much: several days 4. Feeling tired or having little energy: more than half the days 5. Poor appetite or overeating: not at all 6. Feeling bad about yourself - or that you are a failure or have let yourself or your family down: not at all 7. Trouble concentrating on things, such as reading the newspaper or watching television: not at all 8. Moving or speaking so slowly that other people could have noticed. Or the opposite - being so fidgety or restless that you have been moving around a lot more than usual: nearly every day 9. Thoughts that you would be better off or of hurting yourself in some way: not at all Total score: 9 Depression Screening Interpretation: Positive Depression Screening Follow-up: Existing condition, In treatment, Community Mental Health Worker F/U and Follow-up Visit Requested Depression Screening Done: Yes 93483 - PHQ-9 Billing: Yes Source: Developed by Drs. Devon Hamilton, Joi Bingham, Edgardo Martinez and colleagues, with an educational elver from [employer]. Thrive Questionnaire Date Thrive assessed: 12/07/24 I am a: Patient What is your living situation today?: I have a steady place to live Within the past 12 months, did the food you bought not last and you didn't have the money to get more?: Often true Within the past 12 months, did you worry whether your food would run out before you got money to buy more?: Often true Do you have trouble paying for medicines?: No Do you have trouble getting transportation to medical appointments?: Yes Do you have trouble paying your heating and electricity bill?: No Do you have trouble taking care of your child, family member or friend?: No Do you have trouble with day-to-day activities such as bathing, preparing meals, shopping, managing finances, etc.?: No Are you currently unemployed and looking for a job?: No Are you interested in more education?: No Please select the resources that you would like help with: None Currently or been in a relationship where the following occur: No concerns reported THRIVE Score: 3 AUDIT C Alcohol Use Questionnaire (AUDIT-C) 1. How often do you have a drink containing alcohol?: Never Total Score: 0 Score Reviewed/Action Taken: No ALLYSSA-7 AMB Questionnaire ALLYSSA-7 Date ALLYSSA - 7 assessed: 12/07/24 Feeling nervous, anxious, or on edge: 0 = Not at all Not being able to stop or control worryin = Not at all Worrying too much about different things: 0 = Not at all Trouble relaxin = Not at all Being so restless that it is hard to sit still: 0 = Not at all Becoming easily annoyed or irritable: 0 = Not at all Feeling afraid as if something awful might happen: 0 = Not at all Total ALLYSSA-7 score (0-4 normal; 5-9 mild; 10-14 moderate; 15-21 severe): 0 Source: Developed by Drs. Devon Hamilton, Joi Bingham, Edgardo Martinez and colleagues, with an educational elver from [employer]. ALLYSSA-7 Assessment Billing ALLYSSA-7 Assessment Tool: ALLYSSA-7 Assessment 28018 Review of Systems Const All systems reviewed & are unremarkable except as noted in HPI and below Card Denies chest pain at rest, Denies chest pain with activity, Denies edema, Denies irregular heart rhythm, Denies claudication, Denies dyspnea, Denies dyspnea on exertion, Denies orthopnea, Denies paroxysmal nocturnal dyspnea and Denies slow heart rate Resp Denies cough, Denies dyspnea and Denies dyspnea on exertion GI Denies abdominal pain, Denies change in bowel habits, Denies excessive flatus, Denies nausea and Denies vomiting Physical exam (Primary Care) Vital Signs: Last Vital Signs BP 126/80 12/07/24 09:10 BMI result Body Mass Index 46.8 BMI Assessment/Plan discussion: High BMI High, discussed plan: lifestyle, weight reduction, dietary and physical activity Tobacco/Smoking Status: Tobacco use Status Tobacco use date assessed 12/07/24 12/07/24 09:14 Patient Tobacco Use Status Never used Tobacco 12/07/24 09:14 e-Cigarette/Vaping Use Never Used 12/07/24 09:14 PHQ-9: PHQ-9 Score PHQ-9: Total score 9 12/07/24 09:32 Depression Screening Interpretation: Positive Depression Screening Follow-up: Existing condition, In treatment, Community Mental Health Worker F/U and Follow-up Visit Requested Thrive Assessment: Date of Thrive Assessment Date Thrive assessed 12/07/24 12/07/24 09:14 Currently or been in a relationship where the following occur: No concerns reported [facility] Head: Yes normal to inspection, Yes normocephalic and Yes atraumatic Ears: external ears normal Eyes General: appearance normal, both eyes and all related structures Eyelids: Yes eyelids normal Conjunctivae: conjunctivae normal Neck Neck: Yes normal visual inspection and Yes supple Resp Effort & Inspection: normal respiratory effort Auscultation: clear to auscultation bilaterally Cardio Jugular venous distension: no JVD Rate: regular rate Rhythm: regular rhythm Heart sounds: S1 normal heart sound present and S2 normal heart sound present GI Inspection: Yes normal to inspection Palpation (GI): Soft to palpation and nontender Auscultation: normal bowel sounds Skin General skin exam: no rashes or lesions noted Neuro General: no focal motor deficits Extrem General: Yes full ROM Psych Appearance: grossly normal Office Procedures Flu Questionnaire Does the patient have a severe egg allergy?: No Does the patient have severe life threatening allergies?: No Does the patient have a fever or illness today?: No Has the patient ever had Guillain-[place] Syndrome?: No Has the patient ever had any past reaction to a flu shot?: No Results AMB Hemoglobin A1c AMB Hemoglobin A1c 6.1 % Last Edit by TABITHA Uribe on 12/07/24 09:17 Immunizations Fluarix Triv [id number] (PF) 45 mcg (15 mcg x 3)/0.5 mL IM syringe Performing Provider: Nemo Ortiz MD [facility] Administered by: TABITHA Uribe on 12/07/24 09:14 Dose Route Admin Location Dispensed Lot Number Expiration Date ND Marketing Communication Manager 0.5 mL IM Left Deltoid 0.5 mL [id number] 05/14/25 [id number] [employer] VIS Given Date VIS Provided VIS Publication Date 12/07/24 Single Vaccine 21 Eligibility Eligibility Date Funding Source Not [facility] Eligible 12/07/24 Private Results Reviewed Results Reviewed: Laboratory Last Values Hgb A1c (Clinic) 6.1 % (4.0-6.0) H 12/07/24 09:05 Coding Level of Care Code Est Pt Prev Care [id number](89399) Diagnoses Physical exam Z00.00 Myasthenia gravis, acetylcholine receptor antibody positive G70.00 Type 2 diabetes mellitus without complication, without long-term current use of insulin E11.9 Diabetes mellitus type: type 2 Diabetes mellitus long term care pharmacist insulin use: without skilled nursing use Diabetes mellitus complication status: without complication MDD (major depressive disorder), recurrent episode, mild F33.0 Morbid obesity with BMI of 45.0-49.9, adult E66.01; Z68.42 Additional Codes ALLYSSA-7 Assessment Billing - ALLYSSA-7 Assessment Tool: ALLYSSA-7 Assessment 33582 ([id number]) PHQ-9 - 36894 - PHQ-9 Billing: Yes ([id number]) Time Spent (min) 31 Assessment & Plan Assessment & Plan (1) Physical exam: Code(s): Z00.00 - Encounter for general adult medical examination without abnormal findings Category: Medical (2) Myasthenia gravis, acetylcholine receptor antibody positive: Code(s): G70.00 - Myasthenia gravis without (acute) exacerbation Category: Medical (3) Diabetes mellitus: Code(s): E11.9 - Type 2 diabetes mellitus without complications Category: Medical Qualifiers: Diabetes mellitus type: type 2 Diabetes mellitus skilled nursing insulin use: without skilled nursing use Diabetes mellitus complication status: without complication Qualified Code(s): E11.9 - Type 2 diabetes mellitus without complications (4) MDD (major depressive disorder), recurrent episode, mild: Code(s): F33.0 - Major depressive disorder, recurrent, mild Category: Medical (5) Morbid obesity with BMI of 45.0-49.9, adult: Code(s): E66.01 - Morbid (severe) obesity due to excess calories; Z68.42 - Body mass index [BMI] 45.0-49.9, adult Category: Medical Plan - Ensure follow-up laboratory testing for cholesterol and potential proteinuria. - Continue current management of asthma with Symbicort and allergic rhinitis with Zyrtec. - Continue Ubrelvy for migraine management. - Maintain diabetes management given current control, and monitor Hemoglobin A1c routinely. - Tape Fastener Machine Operator on weight management strategies aiming for further weight reduction given current BMI. - Evaluate the need for additional vaccinations and schedule a Pap smear as indicated. - Continue follow up with neurology for Myasthenia gravis. Patient was informed and verbally consented to the use of an ambient scribe for clinic note documentation during this visit. I discussed with the patient the status of her chronic conditions and emphasized the importance of ongoing management and regular monitoring. We reviewed her current medications and their effectiveness. The vital importance of weight management was highlighted, given her obesity and related health risks. We also discussed the need for follow-up laboratory work, including cholesterol and proteinuria tests, to better guide the management plan. I recommended continued vigilance in diabetes management, with a commendable A1c result as a strong indicator of effective control. The need for potential further vaccinations and routine checks such as Pap smears was also addressed. There was consent for the proposed plan of care. Orders: Orders Influenza [id number] Immunization Today Z23 - Encounter for immunization Microalbumin, Random (w Creat) Today R80.9 - Proteinuria, unspecified AMB Hemoglobin A1c Today E11.9 - Type 2 diabetes mellitus without complications Lipid Panel Today E78.5 - Hyperlipidemia, unspecified Comprehensive [place]. Panel Fast Today G70.00 - Myasthenia gravis without (acute) exacerbation Patient Instructions: - Continue using your current medications as prescribed. - Follow up for blood tests to check cholesterol and any presence of protein in urine as soon as possible. - Maintain your weight management efforts with diet and exercise; aim for further gradual weight reduction. - Monitor blood sugar levels regularly and keep a record for the next visit. - Schedule a Pap smear if due. - Report any new or worsening symptoms, especially related to asthma, migraines, or any other medical condition.
== END 2024-12-07 12:24 | disposition home or self-care (01) ==
PROVIDERS: PCP Internal Medicine; Visit Provider Internal Medicine
DX: Z00.00 Encounter for general adult medical examination without abnormal findings (principal); G70.00 Myasthenia gravis without (acute) exacerbation; E11.9 Type 2 diabetes mellitus without complications; F33.0 Major depressive disorder, recurrent, mild; E66.01 Morbid (severe) obesity due to excess calories; Z68.42 Body mass index [BMI] 45.0-49.9, adult; Z23 Encounter for immunization

== ENCOUNTER → 2024-12-07 08:59 | Outpatient (BNVA) | payer OTHER, SELFPAY | PROVIDERS: PCP Internal Medicine; Visit Provider Internal Medicine | DX: Z00.00 Encounter for general adult medical examination without abnormal findings (principal); Z23 Encounter for immunization; G47.00 Insomnia, unspecified; E11.9 Type 2 diabetes mellitus without complications; F33.0 Major depressive disorder, recurrent, mild; E66.01 Morbid (severe) obesity due to excess calories; Z68.42 Body mass index [BMI] 45.0-49.9, adult; Z71.3 Dietary counseling and surveillance | CPT/HCPCS: 83036; 90471; 90656; 96127; 99395 ==

== ENCOUNTER 2025-03-08 08:49 | Outpatient (REF) | payer OTHER, SELFPAY ==
[2025-03-08 09:11] LABS: MANUAL DIFF FLAG NO
[2025-03-08 09:43] LABS: Basophils Percent Auto 0.3 % (0-2); Eosinophils Absolute Auto 0.3 X10*3/uL (0.0-0.4); Eosinophils Percent Auto 2.4 % (0-4); Hematocrit 34.3 % (37.0-47.0); Hemoglobin 11.9 g/dl (12.0-16.0); Imm Gran Abs Auto 0.06 X10*3/uL (0.00-0.03); Imm Gran Pct Auto 0.5 % (0.0-0.4); Lymphocytes Percent Auto 32.5 % (20-40); Mean Corpuscular HGB Conc 34.7 g/dl (31.0-35.0); Mean Corpuscular Hemoglobin 30.7 pg (27.0-33.0); Mean Corpuscular Volume 88.6 fL (80.0-98.0); Mean Platelet Volume 10.6 fL (9.4-12.3); Monocytes Absolute Auto 0.6 X10*3/uL (0.1-1.2); Monocytes Percent Auto 4.4 % (2-11); Neutrophils Absolute Auto 7.4 x10*3/uL (2.0-8.3); Neutrophils Percent Auto 59.9 % (45-73); Platelet Count 259 X10*3/uL (160-400); Red Blood Count 3.87 X10*6/uL (4.20-5.50); Red Cell Distribution Width 17.2 % (11.0-16.0); White Blood Count 12.4 X10*3/uL (4.8-10.8)
== END 2025-03-08 08:50 | disposition home or self-care (01) ==
LOC: HO.LAB 08:49
PROVIDERS: Absent Provider Internal Medicine; PCP Internal Medicine; Visit Provider Nurse Practitioner Family
DX: G70.00 Myasthenia gravis without (acute) exacerbation (principal)
CPT/HCPCS: 36415; 85025

== ENCOUNTER 2025-03-22 | Outpatient (REF) | payer OTHER, SELFPAY ==
[2025-03-22 12:16] LABS: MANUAL DIFF FLAG NO
[2025-03-22 12:59] LABS: Basophils Percent Auto 0.3 % (0-2); Eosinophils Absolute Auto 0.4 X10*3/uL (0.0-0.4); Eosinophils Percent Auto 2.9 % (0-4); Hemoglobin 13.6 g/dl (12.0-16.0); Imm Gran Abs Auto 0.08 X10*3/uL (0.00-0.03); Imm Gran Pct Auto 0.6 % (0.0-0.4); Lymphocytes Percent Auto 28.3 % (20-40); Mean Corpuscular HGB Conc 34.9 g/dl (31.0-35.0); Mean Corpuscular Hemoglobin 30.7 pg (27.0-33.0); Mean Platelet Volume 10.1 fL (9.4-12.3); Monocytes Absolute Auto 0.9 X10*3/uL (0.1-1.2); Monocytes Percent Auto 6.4 % (2-11); Neutrophils Absolute Auto 8.6 x10*3/uL (2.0-8.3); Neutrophils Percent Auto 61.5 % (45-73); Platelet Count 299 X10*3/uL (160-400); Red Blood Count 4.43 X10*6/uL (4.20-5.50)
[2025-03-22 13:27] LABS: Alanine Aminotransferase 46 U/L (0-31); Albumin Level 4.3 g/dL (3.5-5.0); Alkaline Phosphatase 75 U/L (39-117); Anion Gap 12 (12-20); Aspartate Amino Transferase 38 U/L (5-31); Bilirubin Total 0.7 mg/dL (0.0-1.0); Blood Urea Nitrogen 8 mg/dL (9-16); Calcium 9.5 mg/dL (8.4-10.2); Carbon Dioxide 26 mmol/L (22-29); Chloride 104 mmol/L (96-108); Cholesterol 208 mg/dL (<200); Estimated Glomerular Filt Rate > 60; Glucose Fasting 297 mg/dL (60-99); HDL Cholesterol 39 mg/dL (>40); LDL Cholesterol Calculated 126 mg/dL (<100); Potassium 3.7 mmol/L (3.3-5.1); Sodium 138 mmol/L (135-145); Total Protein 7.7 g/dL (6.5-8.0); Triglycerides 215 mg/dL (<150)
[2025-03-22 13:56] LABS: Creatinine Urine 82.25 mg/dL; Microalbum/Creatinine Ratio Ur 9.7 ug/mg cr (<30)
== END 2025-03-22 00:01 | disposition home or self-care (01) ==
LOC: HO.LAB
PROVIDERS: PCP Internal Medicine; Visit Provider Nurse Practitioner Family
DX: G70.00 Myasthenia gravis without (acute) exacerbation (principal); E78.5 Hyperlipidemia, unspecified; R80.9 Proteinuria, unspecified
CPT/HCPCS: 36415; 80053; 80061; 82043; 82570; 85025

== ENCOUNTER 2025-03-29 07:50 | Outpatient (REF) | payer OTHER, SELFPAY ==
[2025-03-29 09:36] LABS: Creatinine Urine 201.52 mg/dL; Microalbum/Creatinine Ratio Ur 41.6 ug/mg cr (<30)
[2025-03-29 09:37] LABS: Alanine Aminotransferase 57 U/L (0-31); Albumin Level 4.6 g/dL (3.5-5.0); Alkaline Phosphatase 79 U/L (39-117); Anion Gap 14 (12-20); Aspartate Amino Transferase 58 U/L (5-31); Bilirubin Total 0.7 mg/dL (0.0-1.0); Blood Urea Nitrogen 12 mg/dL (9-16); Calcium 9.8 mg/dL (8.4-10.2); Carbon Dioxide 21 mmol/L (22-29); Chloride 105 mmol/L (96-108); Cholesterol 228 mg/dL (<200); Estimated Glomerular Filt Rate > 60; Glucose Fasting 308 mg/dL (60-99); HDL Cholesterol 36 mg/dL (>40); Iron 71 mcg/dL (30-160); LDL Cholesterol Calculated 142 mg/dL (<100); Percent Iron Saturation 26 % (15-50); Sodium 136 mmol/L (135-145); Total Iron Binding Capacity 278 mcg/dL (228-428); Total Protein 7.8 g/dL (6.5-8.0); Triglycerides 252 mg/dL (<150); Unsaturated Iron Binding 207 ug/dL
[2025-03-29 09:58] LABS: Folate 11.6 ng/mL (> or = 4.0); Vitamin B12 212 pg/mL (200-900)
[2025-03-29 09:59] LABS: Vitamin D 25-OH Total 13.1 ng/mL (>30)
== END 2025-03-29 07:51 | disposition home or self-care (01) ==
LOC: HO.LAB 07:50
PROVIDERS: PCP Internal Medicine; Visit Provider Internal Medicine
DX: E78.5 Hyperlipidemia, unspecified (principal); E11.9 Type 2 diabetes mellitus without complications; D64.9 Anemia, unspecified; E53.8 Deficiency of other specified B group vitamins; E55.9 Vitamin D deficiency, unspecified
CPT/HCPCS: 36415; 80053; 80061; 82043; 82306; 82570; 82607; 82746; 83540

== ENCOUNTER 2025-04-12 08:02 | Outpatient (AMB) | payer OTHER, SELFPAY ==
[2025-04-12 08:25] VITALS: BP 118/80; BMI 47.1
--- NOTE | 2025-04-12 08:25 | MHC.PC.OV ---
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 Accompanied by: Child Allergies erythromycin base Allergy (Intermediate, Verified 04/12/25 08:31) Swelling levofloxacin [From LEVAQUIN] Allergy (Intermediate, Verified 04/12/25 08:31) RASH AND HIVES Penicillins [PENICILLINS] Allergy (Intermediate, Verified 04/12/25 08:31) Swelling metformin Adverse Reaction (Severe, Verified 04/12/25 08:31) contraindicated in myasthenia gravis dulaglutide [From Trulicity] Adverse Reaction (Intermediate, Verified 04/12/25 08:31) inadequate response Medication List - Last Reconciled 04/12/25 by Nemo Ortiz MD albuterol sulfate 90 mcg/actuation 2 inhalations inhalation QID PRN albuterol sulfate 2.5 mg (3 mL) inhalation QID PRN azathioprine 50 mg PO DAILY 30 days blood sugar diagnostic (FreeStyle Lite Strips) As directed three times a day blood-glucose meter (FreeStyle Lite Meter kit) As directed 3x/day budesonide-formoterol 160-4.5 mcg/actuation (Symbicort) 2 inhalations inhalation BID cetirizine (Zyrtec) 10 mg PO DAILY cholecalciferol (vitamin D3) 50 mcg (2 x 25 mcg (1,000 unit)) PO DAILY 30 days diclofenac potassium 50 mg PO BID PRN 30 days efgartigimod jorgito-fcab (Vyvgart) 1,200 mg (60 mL) IV QWEEK 4 weeks ferrous sulfate (Iron (ferrous sulfate)) 325 mg PO DAILY fluticasone propionate 50 mcg/actuation (Flonase Allergy Relief) 1 spray intranasal BID 30 days immun glob G(IgG)-gly-IgA ov50 10 % (Gammagard Liquid) IVIG Gammagard 10% at 50gm qd x's 5 days every 3 weeks w/ pre-tx w/ benadryl and toradaol- to prevent IVIG r/t headache. Toradol order: 30 mg (2ml) IV 15 minutes prior to IVIG infusion, and then q 6 hrs prn (NTE 120mg per 24 hrs) intravenously every 6 to 8 hours PRN; Benadryl order: 50mg IV Push x's 1 3 weeks ketorolac 10 mg PO Q8H PRN 5 days ketorolac 30 mg (2ml) IV 15 minutes prior to IVIG infusion, and then q 6 hrs prn (NTE 120mg per 24 hrs) intravenously every 6 to 8 hours PRN; 5 days lancets (FreeStyle Lancets) Use 1 lancet three times a day nebulizers As directed nifedipine ER 30 mg PO DAILY 90 days omeprazole 20 mg PO DAILY 90 days pen needle, diabetic (BD Ultra-Fine Mini Pen Needle) As directed pen needle, diabetic (Comfort EZ Pen [place]) As directed pyridostigmine bromide 30 - 60 mg (0.5 - 1 x 60 mg) PO TID 30 days pyridostigmine bromide ER 360 mg (2 x 180 mg) PO QID 30 days semaglutide (Ozempic) 0.5 mg (0.736 mL) subcut QWEEK 4 weeks Shower Chair shower chair with arms. To prevent falls d/t weakness d/t myasthenia gravis. Tobacco use date assessed: 12/07/24 Dental Screening Dental Screen Date: 12/07/24 HPI HPI Comments History of Present Illness Details The patient is a 34-year-old female presenting with a follow-up for chronic conditions, primarily Type 2 Diabetes Mellitus. Her Hemoglobin A1c has been noted to be 9, suggesting suboptimal control, and she has expressed difficulty in weight management. She attributes these challenges to familial stressors. For her Myasthenia Gravis, she has adjusted her Pyridostigmine dosage due to prior overmedication, with her current regimen being 30 to 60 mg administered thrice daily. Her asthma, requiring daily Symbicort inhaler and as-needed albuterol, is described as severe, and she also manages sleep apnea under neurological care. The patient's history includes morbid obesity, with a previous weight of 237 pounds and ongoing efforts to manage her weight. Her lipid levels remain elevated, with an LDL of 142, and she reports low Vitamin D levels at 13.1. Gastrointestinal symptoms such as gas and diarrhea have been persistent, with elevated liver enzymes noted, yet no gastroenterology consultation has been pursued thus far. Her current medication regimen includes several antiallergy and chronic condition medications, with noted allergies to erythromycin, levofloxacin, penicillin, metformin, and dulaglutide. [facility] Medical History (Updated 04/12/25 @ 08:53 by Nemo Ortiz MD) Myasthenia gravis Moderate recurrent major depression Chronic cough MYNOR (obstructive sleep apnea) COVID-19 vaccine series completed Chronic diarrhea Obesity due to excess calories Myasthenia gravis Asthma Sleep apnea GERD (gastroesophageal reflux disease) Morbid obesity CAD (coronary artery disease) Lower back pain Surgical History H/O section History of esophagogastroduodenoscopy (EGD) S/P thymectomy History of tonsillectomy and adenoidectomy History of cholecystectomy Family History Father Hypertension Diabetes Mother Diabetes Hypertension Maternal Grandfather Diabetes Hypertension Bone cancer Maternal Aunt Breast cancer Maternal Grandmother Diabetes Hypertension CVD (cardiovascular disease) Other Mental health disorder Social History Housing: Apartment Are you a primary healthcare social worker to a significant other at home: No Do you presently have visiting nurse or other home services: Yes Alcohol intake: never Patient Tobacco Use Status: Never used Tobacco e-Cigarette/Vaping Use: Never Used Second Hand Smoke Exposure: No service: No Current occupational status: unemployed Current occupational exposures/hazards: No Cognitive needs: Yes (walker) Hearing needs: No Vision needs: No Female Reproductive History Menstrual Age of Menarche: 11 Questionnaire PHQ-9 Over the last 2 weeks, how often have you been bothered by any of the following problems? 9. Thoughts that you would be better off or of hurting yourself in some way: not at all Source: Developed by Drs. Devon Hamilton, Joi Bingham, Edgardo Martinez and colleagues, with an educational elver from [employer]. Thrive Questionnaire Date Thrive assessed: 12/07/24 I am a: Patient What is your living situation today?: I have a steady place to live Within the past 12 months, did the food you bought not last and you didn't have the money to get more?: Often true Within the past 12 months, did you worry whether your food would run out before you got money to buy more?: Often true Do you have trouble paying for medicines?: No Do you have trouble getting transportation to medical appointments?: Yes Do you have trouble paying your heating and electricity bill?: No Do you have trouble taking care of your child, family member or friend?: No Do you have trouble with day-to-day activities such as bathing, preparing meals, shopping, managing finances, etc.?: No Are you currently unemployed and looking for a job?: No Are you interested in more education?: No Please select the resources that you would like help with: None Currently or been in a relationship where the following occur: No concerns reported THRIVE Score: 3 AUDIT C Alcohol Use Questionnaire (AUDIT-C) 3. How often do you have six or more drinks on one occasion?: Never Total Score: 0 ALLYSSA-7 AMB Questionnaire ALLYSSA-7 Date ALLYSSA - 7 assessed: 12/07/24 Source: Developed by Drs. Devon Hamilton, Joi Bingham, Edgardo Martinez and colleagues, with an educational elver from [employer]. Review of Systems Const All systems reviewed & are unremarkable except as noted in HPI and below Card Denies chest pain at rest, Denies chest pain with activity, Denies edema, Denies irregular heart rhythm, Denies claudication, Denies dyspnea, Denies dyspnea on exertion, Denies orthopnea, Denies paroxysmal nocturnal dyspnea and Denies slow heart rate Resp Denies cough, Denies dyspnea and Denies dyspnea on exertion GI Denies abdominal pain, Denies change in bowel habits, Denies excessive flatus, Denies nausea and Denies vomiting Denies urinary incontinence, Denies urinary hesitancy and Denies urinary urgency Neuro Denies lack of coordination Physical exam (Primary Care) Vital Signs: Last Vital Signs BP 118/80 04/12/25 08:25 BMI result Body Mass Index 47.1 BMI Assessment/Plan discussion: High BMI High, discussed plan: lifestyle, weight reduction, dietary and physical activity Tobacco/Smoking Status: Tobacco use Status Tobacco use date assessed 12/07/24 04/12/25 08:30 Patient Tobacco Use Status Never used Tobacco 04/12/25 08:30 e-Cigarette/Vaping Use Never Used 04/12/25 08:30 Thrive Assessment: Date of Thrive Assessment Date Thrive assessed 12/07/24 04/12/25 08:30 Currently or been in a relationship where the following occur: No concerns reported Resp Effort & Inspection: normal respiratory effort Auscultation: clear to auscultation bilaterally Cardio Jugular venous distension: no JVD Rate: regular rate Rhythm: regular rhythm Heart sounds: S1 normal heart sound present and S2 normal heart sound present Extrem General: Yes full ROM Results AMB Hemoglobin A1c AMB Hemoglobin A1c 9.0 % Last Edit by TABITHA Uribe on 04/12/25 08:31 Results Reviewed Results Reviewed: Laboratory Last Values Hgb A1c (Clinic) 9.0 % (4.0-6.0) H 04/12/25 08:21 Coding Level of Care Code Est Pt Level 4 (60670) Complex EM visit Add On G2211 Diagnoses Type 2 diabetes mellitus without complication, without long-term current use of insulin E11.9 Diabetes mellitus type: type 2 Diabetes mellitus intermodal customer service insulin use: without intermodal customer service use Diabetes mellitus complication status: without complication Transaminitis R74.01 Myasthenia gravis, acetylcholine receptor antibody positive G70.00 Essential hypertension I10 Hyperlipidemia LDL goal <70 E78.5 Morbid obesity with BMI of 45.0-49.9, adult E66.01; Z68.42 Mild intermittent asthma without complication J45.20 Asthma severity: mild Asthma persistence: intermittent Asthma complication type: uncomplicated Time Spent (min) 24 Assessment & Plan Assessment & Plan (1) Diabetes mellitus: Code(s): E11.9 - Type 2 diabetes mellitus without complications Category: Medical Qualifiers: Diabetes mellitus type: type 2 Diabetes mellitus mcc insulin use: without intermodal customer service use Diabetes mellitus complication status: without complication Qualified Code(s): E11.9 - Type 2 diabetes mellitus without complications (2) Transaminitis: Code(s): R74.01 - Elevation of levels of liver transaminase levels Category: Medical (3) Myasthenia gravis, acetylcholine receptor antibody positive: Code(s): G70.00 - Myasthenia gravis without (acute) exacerbation Category: Medical (4) Essential hypertension: Code(s): I10 - Essential (primary) hypertension Category: Medical (5) Hyperlipidemia LDL goal <70: Code(s): E78.5 - Hyperlipidemia, unspecified Category: Medical (6) Morbid obesity with BMI of 45.0-49.9, adult: Code(s): E66.01 - Morbid (severe) obesity due to excess calories; Z68.42 - Body mass index [BMI] 45.0-49.9, adult Category: Medical (7) Asthma: Comment: exacerbation in 2016 w/ICU admission Code(s): J45.909 - Unspecified asthma, uncomplicated Category: Medical Qualifiers: Asthma severity: mild Asthma persistence: intermittent Asthma complication type: uncomplicated Qualified Code(s): J45.20 - Mild intermittent asthma, uncomplicated Plan Vitamin D deficiency will be supplemented. Gastrointestinal symptoms and elevated liver enzymes will be addressed with a referral to gastroenterology for further evaluation, including potential hepatitis panel and ultrasound. Follow-up will involve repeat labs in four months to assess the management of these chronic conditions.: Patient was informed and verbally consented to the use of an ambient scribe for clinic note documentation during this visit. During the visit, I discussed with the patient the management of her chronic conditions, including the importance of achieving better control of her Type 2 Diabetes Mellitus through potential adjustment of Ozempic dosage. We reviewed the management of her asthma with current inhaler use and the maintenance of her current Pyridostigmine regimen for Myasthenia Gravis. I highlighted the need for proper weight management strategies due to her morbid obesity and explained the rationale for managing her hyperlipidemia with medication to lower LDL cholesterol. We discussed the low Vitamin D levels and the need for supplementation. I recommended a gastroenterology referral to evaluate her gastrointestinal symptoms and elevated liver enzymes further. The patient was advised on the importance of repeat fasting labs in four months to monitor treatment efficacy. Consent for these management strategies was obtained, and the patient agreed to follow up as recommended. Orders: Orders AMB Hemoglobin A1c Today E11.9 - Type 2 diabetes mellitus without complications Lipid Panel 4 Months E78.5 - Hyperlipidemia, unspecified Microalbumin, Random (w Creat) 4 Months R80.9 - Proteinuria, unspecified Vitamin D 25-OH Total 4 Months E55.9 - Vitamin D deficiency, unspecified Complete Blood Count Auto Diff 4 Months D64.9 - Anemia, unspecified IRON PROFILE 4 Months D64.9 - Anemia, unspecified US abdomen [place] w elastography Today R74.01 - Elevation of levels of liver transaminase levels Hepatitis A,B,C Profile 4 Months R74.01 - Elevation of levels of liver transaminase levels Comprehensive [place]. Panel Fast 4 Months E78.5 - Hyperlipidemia, unspecified Referrals Gastroenterology Referral R10.9 - Unspecified abdominal pain Medications: New semaglutide (Ozempic) 1 mg (0.75 mL) subcut QWEEK 3 mL 0RF 4 weeks E11.9 - Type 2 diabetes mellitus without complications atorvastatin 20 mg PO BEDTIME 90 tabs 1RF 90 days E78.5 - Hyperlipidemia, unspecified Changed From cetirizine (Zyrtec) 10 mg PO DAILY 21 tabs 0RF To cetirizine (Zyrtec) 10 mg PO DAILY 90 tabs 0RF 90 days Discontinued pyridostigmine bromide ER Discontinued Reason: Order 360 mg (2 x 180 mg) PO QID 30 days 240 tabs 6RF semaglutide (Ozempic) Discontinued Reason: Patient Completed Course 0.5 mg (0.736 mL) subcut QWEEK 4 weeks 2.944 mL 0RF Patient Instructions: - Continue using Symbicort daily and albuterol as needed for asthma. - Manage diabetes with current medication and consider potential adjustments. - Maintain current Pyridostigmine dosage for Myasthenia Gravis. - Follow weight management and stress reduction strategies. - Take Vitamin D supplements as discussed. - Schedule a gastroenterology appointment for further evaluation. - Follow up with fasting labs in four months. - Seek immediate medical care if symptoms worsen or new symptoms develop.
== END 2025-04-12 08:48 | disposition home or self-care (01) ==
LOC: HO.HMCH 08:03
PROVIDERS: PCP Internal Medicine; Visit Provider Internal Medicine
DX: E11.69 Type 2 diabetes mellitus with other specified complication (principal); G70.00 Myasthenia gravis without (acute) exacerbation; E66.01 Morbid (severe) obesity due to excess calories; Z68.42 Body mass index [BMI] 45.0-49.9, adult; R74.01 Elevation of levels of liver transaminase levels; I10 Essential (primary) hypertension; E78.5 Hyperlipidemia, unspecified; J45.20 Mild intermittent asthma, uncomplicated

== ENCOUNTER 2025-04-12 08:02 | Outpatient (REF) | payer OTHER, SELFPAY ==
[2025-04-12 09:16] LABS: MANUAL DIFF FLAG NO
[2025-04-12 09:38] LABS: Basophils Percent Auto 0.2 % (0-2); Eosinophils Absolute Auto 0.4 X10*3/uL (0.0-0.4); Eosinophils Percent Auto 3.1 % (0-4); Hematocrit 41.9 % (37.0-47.0); Hemoglobin 14.2 g/dl (12.0-16.0); Imm Gran Abs Auto 0.05 X10*3/uL (0.00-0.03); Imm Gran Pct Auto 0.4 % (0.0-0.4); Lymphocytes Absolute Auto 2.9 X10*3/uL (1.2-4.9); Lymphocytes Percent Auto 23.8 % (20-40); Mean Corpuscular HGB Conc 33.9 g/dl (31.0-35.0); Mean Corpuscular Hemoglobin 30.1 pg (27.0-33.0); Mean Platelet Volume 10.2 fL (9.4-12.3); Monocytes Absolute Auto 0.6 X10*3/uL (0.1-1.2); Monocytes Percent Auto 4.6 % (2-11); Neutrophils Absolute Auto 8.4 x10*3/uL (2.0-8.3); Neutrophils Percent Auto 67.9 % (45-73); Platelet Count 300 X10*3/uL (160-400); Red Blood Count 4.71 X10*6/uL (4.20-5.50); Red Cell Distribution Width 12.8 % (11.0-16.0); White Blood Count 12.3 X10*3/uL (4.8-10.8)
[2025-04-12 09:57] LABS: Alanine Aminotransferase 61 U/L (0-31); Alkaline Phosphatase 83 U/L (39-117); Anion Gap 14 (12-20); Aspartate Amino Transferase 60 U/L (5-31); Bilirubin Total 0.6 mg/dL (0.0-1.0); Blood Urea Nitrogen 12 mg/dL (9-16); C Reactive Protein 2.77 mg/dL (< or = 0.50); Carbon Dioxide 24 mmol/L (22-29); Chloride 106 mmol/L (96-108); Estimated Glomerular Filt Rate > 60; Glucose Random 265 mg/dL (60-115); Potassium 4.1 mmol/L (3.3-5.1); Sodium 140 mmol/L (135-145); Total Protein 8.2 g/dL (6.5-8.0)
[2025-04-12 10:14] LABS: Erythrocyte Sedimentation Rate 13 MM/HR (0-20)
[2025-04-12 10:21] LABS: Appearance Urine Clear; Color Urine Yellow; Glucose Urine UA >=1000 mg/dL (Negative); Leukocyte Esterase Urine Negative (Negative); Nitrite Urine Negative (Negative); Specific Gravity - Urine 1.025 (1.005-1.025); UMIC TRIGGER UACC YES; Urine Blood Large (3+) (Negative); Urine Ketones Negative (Negative); Urine Protein Trace mg/dL (Neg-Trace)
[2025-04-12 10:38] LABS: Bacteria Urine None Seen (None Seen); Hyaline Casts Urine 0-2 /LPF (0-2); RBC Urine 0-2 /HPF (0-2); Squamous Epithelial Cell Urine 0-2 /HPF (0-2); WBC Urine 0-5 /HPF (0-5)
== END 2025-04-12 08:03 | disposition home or self-care (01) ==
LOC: HO.LAB 08:02
PROVIDERS: Absent Provider Nurse Practitioner Family; PCP Internal Medicine; Visit Provider Internal Medicine
DX: E11.9 Type 2 diabetes mellitus without complications (principal); R74.01 Elevation of levels of liver transaminase levels; G70.00 Myasthenia gravis without (acute) exacerbation; I10 Essential (primary) hypertension; E78.5 Hyperlipidemia, unspecified; E66.01 Morbid (severe) obesity due to excess calories; Z68.42 Body mass index [BMI] 45.0-49.9, adult; J45.20 Mild intermittent asthma, uncomplicated; D72.829 Elevated white blood cell count, unspecified; D64.9 Anemia, unspecified; Z91.89 Other specified personal risk factors, not elsewhere classified
CPT/HCPCS: 36415; 80053; 81001; 81003; 83036; 85025; 85652; 86140; 99212

== ENCOUNTER 2025-04-26 15:42 | Outpatient (REF) | payer OTHER, SELFPAY ==
[2025-05-02 18:19] LABS: Aldosterone/Renin Ratio 0.9 Ratio (0.9-28.9); Plasma Renin Activity 2.25 ng/mL/h (0.25-5.82)
== END 2025-04-26 15:43 | disposition home or self-care (01) ==
LOC: HO.HKASLDS 15:42
PROVIDERS: PCP Internal Medicine; Visit Provider Internal Medicine Critical Care Medicine
DX: I10 Essential (primary) hypertension (principal); R80.9 Proteinuria, unspecified
CPT/HCPCS: 36415; 82088; 84443; 99202

== ENCOUNTER 2025-04-26 15:42 | Outpatient (AMB) | payer OTHER, SELFPAY ==
--- NOTE | 2025-04-26 15:47 | HO.NEPHOV ---
Vital Signs 04/26/25 15:52 Height 5 ft 5 in Weight 282 lb 8 oz BMI 47.0 BP 112/70 Blood Pressure Location Lt brachial Position Sitting Pulse 96 Pulse Source Pulse Oximeter Pulse Oximetry (%) 98 Oxygen Delivery Method Room Air Intake Visit Reasons: INP: Essential (primary) htn/ Conf Naphthalene Still Operator Required: Yes Naphthalene Still Operator Language: Accounting Bookkeeper Services: Naphthalene Still Operator Present Naphthalene Still Operator Name: Annmarie [id number] Information Interpreted: clinical only Accompanied by: Child Allergies erythromycin base Allergy (Intermediate, Verified 04/26/25 15:52) Swelling levofloxacin [From LEVAQUIN] Allergy (Intermediate, Verified 04/26/25 15:52) RASH AND HIVES Penicillins [PENICILLINS] Allergy (Intermediate, Verified 04/26/25 15:52) Swelling metformin Adverse Reaction (Severe, Verified 04/26/25 15:52) contraindicated in myasthenia gravis dulaglutide [From Trulicity] Adverse Reaction (Intermediate, Verified 04/26/25 15:52) inadequate response HPI Comments 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 34-year-old lady with past medical history of hypertension, diabetes, morbid obesity, myasthenia gravis is referred for the microalbuminuria by her neurologist [facility] Medical History (Updated 04/26/25 @ 15:55 by Berlin Yu MD) Hypertension Myasthenia gravis Moderate recurrent major depression Chronic cough MYNOR (obstructive sleep apnea) COVID-19 vaccine series completed Chronic diarrhea Obesity due to excess calories Myasthenia gravis Asthma Sleep apnea GERD (gastroesophageal reflux disease) Morbid obesity CAD (coronary artery disease) Lower back pain Surgical History H/O section History of esophagogastroduodenoscopy (EGD) S/P thymectomy History of tonsillectomy and adenoidectomy History of cholecystectomy Family History Father Hypertension Diabetes Mother Diabetes Hypertension Maternal Grandfather Diabetes Hypertension Bone cancer Maternal Aunt Breast cancer Maternal Grandmother Diabetes Hypertension CVD (cardiovascular disease) Other Mental health disorder Social History Housing: Apartment Are you a primary day care aide to a significant other at home: No Do you presently have visiting nurse or other home services: Yes Alcohol intake: never Patient Tobacco Use Status: Never used Tobacco e-Cigarette/Vaping Use: Never Used Second Hand Smoke Exposure: No service: No Current occupational status: unemployed Current occupational exposures/hazards: No Cognitive needs: Yes (walker) Hearing needs: No Vision needs: No Female Reproductive History Menstrual Age of Menarche: 11 Review of Systems Const Details: Const Denies body aches, Denies chills, Denies excessive sweating and Denies fatigue Eyes Denies blurry vision and Denies change in vision ENT Denies bleeding gums and Denies change in voice Card Denies chest pain and Denies leg ulcers Resp Denies cough and Denies excessive phlegm production GI Denies abdominal pain and Denies bloating Denies hematuria, Denies urinary frequency and Denies difficulty voiding Musc Denies abnormal gait Neuro Denies Neuro-related abnormal movements, Denies abnormal gait and Denies behavioral changes Psych Denies behavioral changes and Denies change in appetite Endo Denies change in body appearance, Denies cold intolerance, Denies excessive sweating and Denies fatigue Physical Exam Vital Signs: Last Vital Signs Pulse 96 04/26/25 15:52 BP 112/70 04/26/25 15:52 Pulse Ox 98 04/26/25 15:52 Oxygen Delivery Method Room Air 04/26/25 15:52 BMI result Body Mass Index 47.0 General: Not in any acute distress, comfortable, sitting on the chair Nutritional Appearance: Morbidly obese, poor nourishment Eyes: appearance normal, both eyes and all related structures; Alignment and Position: alignment normal and position normal Neck: No lymphadenopathy, no thyromegaly Resp: bilateral air entry equal, no added sounds present Cardio: Regular rate, regular rhythm; Heart sounds: S1 normal heart sound present and S2 normal heart sound present, no edema GI: soft, nontender, no guarding, no hepatosplenomegaly : bladder normal to inspection, bladder normal to palpation, no renal angle tenderness Skin: no rashes or lesions noted and elasticity normal Neuro: oriented to person, oriented to place, oriented to time and moves all extremities Results Reviewed Nephrology Results: Hgb 14.2 g/dl (12.0-16.0) 04/12/25 WBC 12.3 X10*3/uL (4.8-10.8) H 04/12/25 Plt Count 300 X10*3/uL (160-400) 04/12/25 Sodium 140 mmol/L (135-145) 04/12/25 Potassium 4.1 mmol/L (3.3-5.1) 04/12/25 Chloride 106 mmol/L (96-108) 04/12/25 Carbon Dioxide 24 mmol/L (22-29) 04/12/25 BUN 12 mg/dL (9-16) 04/12/25 Creatinine 0.63 mg/dL (0.5-1.4) 04/12/25 Calcium 10.0 mg/dL (8.4-10.2) 04/12/25 Urine Protein Trace mg/dL (Neg-Trace) 04/12/25 Urine Creatinine 201.52 mg/dL 03/29/25 Assessment & Plan Assessment & Plan (1) Microalbuminuria: Code(s): R80.9 - Proteinuria, unspecified Category: Medical Plan Hypertension: Possibly related to her obesity and NSAID use but given previously she had hypokalemia we will rule like to rule out hyperaldosteronism. We will get renin aldosterone levels. Explained her the importance of losing weight to control blood pressures, salt restricted diet. She possibly might need a sleep study to rule out sleep apnea. Chronic kidney disease stage 2 A2: Given her microalbuminuria with UAC are 41.6 and poorly controlled diabetes mellitus with HbA1c 9.0 will switch nifedipine to lisinopril once the labs are done. Also contributed by her overweight. Advised her to loose weight. Explained her the importance of good blood sugar control for a long-term prognosis. We will also add Jardiance to assist with renal protection and better sugar control. Advised her to stop Jardiace if there is UTI or foot ulcers and also explained her the possible side effects. She has been prescribed Ozempic since past 3 months, lost some weight. total time spent is about 40 minutes, 20 minutes on encounter, counselling and explaining her the prognosis, 10 minutes on chart review and 10 minutes on documentation and orders Orders: Orders Aldost/Renin Today I10 - Essential (primary) hypertension TSH reflex Free T4 Today I10 - Essential (primary) hypertension Medications: New lisinopril 10 mg PO DAILY 90 tabs 2RF empagliflozin (Jardiance) 25 mg PO DAILY 90 tabs 2RF Discontinued nifedipine ER Discontinued Reason: None 30 mg PO DAILY 90 days 90 tabs 1RF Coding Level of Care Code New Pt Level 4 (00022) Diagnoses Microalbuminuria R80.9
[2025-04-26 15:52] VITALS: BP 112/70; PULSE 96; O2SAT 98; BMI 47.0
== END 2025-04-26 16:16 | disposition home or self-care (01) ==
LOC: HO.HKAS 15:43
PROVIDERS: PCP Internal Medicine; Visit Provider Internal Medicine Critical Care Medicine
DX: R80.9 Proteinuria, unspecified (principal)
CPT/HCPCS: 99204

== ENCOUNTER → 2025-05-15 07:54 | Outpatient (BNVA) | payer OTHER, SELFPAY | PROVIDERS: PCP Internal Medicine; Visit Provider Surgery | DX: G47.33 Obstructive sleep apnea (adult) (pediatric) (principal); G70.00 Myasthenia gravis without (acute) exacerbation; J45.20 Mild intermittent asthma, uncomplicated; E27.40 Unspecified adrenocortical insufficiency; R74.01 Elevation of levels of liver transaminase levels | CPT/HCPCS: 99212 ==

== ENCOUNTER 2025-05-15 09:03 | Outpatient (AMB) | payer OTHER, SELFPAY ==
--- NOTE | 2025-05-15 09:26 | MHC.OFFVIS ---
Vital Signs 05/15/25 09:28 Height 5 ft 5 in Weight 285 lb 7.978 oz BMI 47.5 BP 110/80 Blood Pressure Location Rt brachial Position Sitting Pulse 79 Pulse Source Pulse Oximeter Pulse Oximetry (%) 97 Oxygen Delivery Method Room Air Intake Visit Reasons: Myasthenia Gravis Accompanied by: Self / Same As Patient Allergies erythromycin base Allergy (Intermediate, Verified 05/15/25 09:29) Swelling levofloxacin (From LEVAQUIN) Allergy (Intermediate, Verified 05/15/25:29) RASH AND HIVES Penicillins (PENICILLINS) Allergy (Intermediate, Verified 05/15/25:29) Swelling metformin Adverse Reaction (Severe, Verified 05/15/25:29) contraindicated in myasthenia gravis dulaglutide (From Trulicity) Adverse Reaction (Intermediate, Verified 05/15/25:29) inadequate response HPI Comments Details: The patient is a 34-year-old woman with a known history of myasthenia gravis status post thymectomy back in 2017 and previously on immunosuppression with both prednisone and mycophenolate. The patient also has a history of asthma. Apparently she moved from [place] to [place] and she has not had regular care for myasthenia gravis. She was referred to Neurology. There was a mixup with the appointment in the patient was canceled. Therefore she has been off the mycophenolate and the prednisone for about a couple months. She also uses pyridostigmine for her myasthenia gravis symptoms but she has also been off the medication for a couple months. She has been noticing increasing GI symptoms with nausea fatigue dizziness. She was referred to Gastroenterology. She was having undergo an endoscopy and also colonoscopy today. However, she was found to have significant coughing and so to be unstable for the procedure. On further questioning the patient does have a productive cough with green sputum. [id number] severity. She does have a rescue inhaler that she uses for asthma. She also has a nebulizer but does not have any medication for it. She denies any fevers or chills. She denies any choking episodes. We did have an opening in the office therefore we had her come down. The patient currently feels like she her myasthenia gravis is flaring. She is concerned about repetitive movements ears should wean because she does not want to develop weakness. Specially with her medications. in the office we did have her undergo a spirometry test. Demonstrated that her FEV1 and FVC are both decreased down to the 70s which is suggestive of a restrictive ventilatory defect. No evidence of any obstruction. She also had some plateauing of the flows during the inspiratory effort which could cover response to vocal cord paralysis. Will continue to monitor closely her symptoms. She does urgently need to be seen by Neurology. 07/17/2022 the patient is here for a pulmonary follow-up visit. Overall she is doing a lot better. She completed the antibiotics. She was also seen urgently by Neurology which I appreciate. There taking good care her. She will be starting IVIG therapy for myasthenia gravis. And she also continues on all her other medicines. Patient is doing better from a respiratory status. She does have a rescue inhaler although she seems to using it between 3 to 4 times a week. Therefore I will go ahead and start her on a Symbicort maintenance inhaler which will work better for her. In the meantime the patient will get a chest x-ray. From a pulmonary standpoint the patient is able to proceed with her a elective colonoscopy once the patient is started on her IVIG therapy which I believe is next week. If the patient has any issues or any concerns she is to call the office for an earlier evaluation otherwise will follow-up in 6 months. 01/13/2023 the patient is here for pulmonary follow-up visit. She is complaining of significant headaches. She has migraines. They be more frequent. She is also having significant daytime drowsiness. Her Columbus score is elevated 12/24. She did have a sleep study back in 2017 which would reviewed demonstrating moderate sleep apnea. She has not had a sleep test sent. Therefore will go ahead and repeat 1. The patient understands that she will likely need CPAP therapy to treat her migraines. She continues with Symbicort. This has been affecting beneficial. She did have COVID-19 about a month ago. Now she has this cough which difficult to clear phlegm. Usually is okay but with myasthenia gravis aware that she would fatigue from all the coughing. Therefore I will provide her with a flutter valve to help her as well. She she also have a chest x-ray when able. Also to note, the patient had to stop the IVIG because he was resulting worsening headaches. At this point clinically she is doing better from the myasthenia gravis so she was placed on hold. If her symptoms worsen then she will be premedicated for her IVIG. 03/22/2023 the patient is here for a pulmonary follow-up visit. She continues to have her headaches and her daytime drowsiness. Columbus score still elevated 11/24. She did have a home sleep study but unfortunately did not record and she has a redo it. We did call centralized scheduling to get the process moving for her. Has already been a few months. In the meantime she has been working closely with neurologist regarding her myasthenia gravis treatment. She is back on IVIG. She is noticing some increased lower extremity edema and swelling. She is concerned because she was previously on diuretics and she is no longer getting them. She has a trip planned to [place]. I will give her enough medication for the trip but then after that she needs to address that with her primary care. She still has not had her colonoscopy. This point the patient is medically optimized from a pulmonary standpoint may proceed with her GI procedures. Will follow-up after her sleep study. 09/13/2023 the patient is here for a pulmonary follow-up visit. Overall the patient has been doing about same. Still complains of daytime drowsiness with an elevated Columbus score 11/24. The patient did have a sleep study in the past demonstrating sleep apnea. She did have a recent home sleep study demonstrating no evidence of any sleep apnea. Although with her continued symptoms and cardiovascular risk factors will be reasonable to order an in-lab sleep study. The patient now is 20 weeks gestation. Her is going well though she is high risk she has been followed closely at [facility]. The patient is fine to have a scheduled when she is due. She continues with her IVIG in addition to immunomodulator therapy. The patient will follow-up after her in-lab sleep study at this time. 11/21/2024 the patient is here for a pulmonary follow-up visit. She has been doing fairly good from a respiratory status although her myasthenia gravis is active. She had been on Imuran but was not as effective. Therefore she started IgG again. She is still using her medications as prescribed. She still uses her Symbicort. She has not had to use it on a regular basis which is good. Denies any wheezing or chest tightness. Has not had any difficulty with her breathing at this time. The patient has been having some daytime drowsiness. Her Columbus score is 11/24. However, she does have a and therefore difficult for her to have an in-lab sleep study. Will hold off until her next follow-up will decide if we need to do 1. In the meantime she has not gotten any vaccines and she was felt not to. I did recommend she get a flu shot at least. But the patient is holding off at this time until she follows up with Neurology. 05/15/2025 the patient is here for a pulmonary follow-up visit. Overall the patient is doing well. Seems to be sleeping better. Denies any significant daytime drowsiness. Therefore hold off on the sleep study this time. She is concerned about her liver function studies being elevated. She recently did start a new medication for her myasthenia gravis and she has also been on azathioprine that can affect her liver. Will go ahead and repeat her LFTs again. In the meantime the patient continues use her respiratory inhalers. Has not required any prednisone which is reassuring. Will continue with the current maintenance inhaler and rescue inhaler as prescribed. Otherwise the patient is without any other complaints will follow-up in 6 months. [facility] Medical History (Updated 04/26/25 @ 15:55 by Berlin Yu MD) Hypertension Myasthenia gravis Moderate recurrent major depression Chronic cough MYNOR (obstructive sleep apnea) COVID-19 vaccine series completed Chronic diarrhea Obesity due to excess calories Myasthenia gravis Asthma Sleep apnea GERD (gastroesophageal reflux disease) Morbid obesity CAD (coronary artery disease) Lower back pain Surgical History H/O section History of esophagogastroduodenoscopy (EGD) S/P thymectomy History of tonsillectomy and adenoidectomy History of cholecystectomy Family History Father Hypertension Diabetes Mother Diabetes Hypertension Maternal Grandfather Diabetes Hypertension Bone cancer Maternal Aunt Breast cancer Maternal Grandmother Diabetes Hypertension CVD (cardiovascular disease) Other Mental health disorder Social History Housing: Apartment Are you a primary healthcare or medical to a significant other at home: No Do you presently have visiting nurse or other home services: Yes Alcohol intake: never Patient Tobacco Use Status: Never used Tobacco e-Cigarette/Vaping Use: Never Used Second Hand Smoke Exposure: No service: No Current occupational status: unemployed Current occupational exposures/hazards: No Cognitive needs: Yes (walker) Hearing needs: No Vision needs: No Female Reproductive History Menstrual Age of Menarche: 11 Review of Systems Const Reports daytime sleepiness, Reports fatigue, Denies fever(s), Reports headache(s), Denies weakness and Reports weight gain ENT Denies dizziness and Reports headache(s) Card Denies chest pain, Denies chest pain with activity, Denies syncope, Denies rapid heart rate, Denies pedal edema, Denies edema, Denies leg edema, Denies lightheadedness, Denies palpitations, Denies dyspnea, Denies dyspnea on exertion and Denies orthopnea Resp Denies chest congestion, Reports cough, Denies dyspnea and Denies dyspnea on exertion GI Denies hematochezia and Denies change in stool character Musc Denies abnormal gait, Denies muscle weakness, Denies numbness, Denies radiating pain into limb and Denies tingling Neuro Denies abnormal gait, Denies dizziness, Denies syncope, Reports headache(s), Denies numbness, Denies tingling and Denies weakness Endo Reports fatigue and Denies palpitations Physical Exam Vital Signs: Last Vital Signs Pulse 79 05/15/25 09:28 BP 110/80 05/15/25 09:28 Pulse Ox 97 05/15/25 09:28 Oxygen Delivery Method Room Air 05/15/25 09:28 BMI result Body Mass Index 47.5 Const General: comfortable and no acute distress HEENT Head: Yes normocephalic and Yes atraumatic Eyes Sclerae: sclerae normal EOM: EOMs intact bilaterally Neck Neck: Yes no lymphadenopathy, Yes trachea midline and Yes no JVD Thyroid: Thyroid normal Chest Chest palpation & inspection: normal inspection of the chest Resp Effort & Inspection: able to speak in complete sentences Auscultation: diminished lung sounds Cardio Rate: regular rate Rhythm: regular rhythm Heart sounds: S1 normal heart sound present, S2 normal heart sound present and no murmurs Peripheral pulses: Peripheral pulses 2+ throughout GI Inspection: Yes obesity Palpation (GI): Soft to palpation and nontender Auscultation: normal bowel sounds Skin Other: No acanthosis nigricans or diabetic dermopathy Neuro Deep tendon reflexes (DTR's): Rt Biceps (C5, C6): 2+, Left biceps reflex intensity grade: 2+, Right patellar reflex intensity grade: 2+ and Left patellar reflex intensity grade: 2+ Extrem Other: General: Yes normal gait, No clubbing, No cyanosis and No edema Psych Appearance: well kempt Speech and movement: Normal speech and movement present Affect: normal affect Attitude: cooperative Assessment & Plan Assessment & Plan (1) MYNOR (obstructive sleep apnea): Code(s): G47.33 - Obstructive sleep apnea (adult) (pediatric) Category: Medical (2) Myasthenia gravis: Code(s): G70.00 - Myasthenia gravis without (acute) exacerbation Category: Medical (3) Asthma: Comment: exacerbation in 2016 w/ICU admission Code(s): J45.909 - Unspecified asthma, uncomplicated Category: Medical Qualifiers: Asthma severity: mild Asthma persistence: intermittent Asthma complication type: uncomplicated Qualified Code(s): J45.20 - Mild intermittent asthma, uncomplicated (4) Adrenal insufficiency: Code(s): E27.40 - Unspecified adrenocortical insufficiency Category: Medical (5) Transaminitis: Code(s): R74.01 - Elevation of levels of liver transaminase levels Category: Medical Plan continue Symbicort short-acting beta agonist as needed consider in lab PSG CPT with acapella valve antihistamines over the counter labs F/U 6 months Orders: Orders Hepatitis A,B,C Profile Today R74.01 - Elevation of levels of liver transaminase levels Liver Panel Today R74.01 - Elevation of levels of liver transaminase levels Medications: Refilled albuterol sulfate 90 mcg/actuation 2 inhalations inhalation QID PRN 6.7 grams 11RF shortness of breath or wheezing budesonide-formoterol 160-4.5 mcg/actuation (Symbicort) 2 inhalations inhalation BID 10.2 ea 11RF J44.9 - Chronic obstructive pulmonary disease, unspecified Coding Level of Care Code Est Pt Level 4 (90781) Complex EM visit Add On G2211 Diagnoses MYNOR (obstructive sleep apnea) G47.33 Myasthenia gravis G70.00 Mild intermittent asthma without complication J45.20 Asthma severity: mild Asthma persistence: intermittent Asthma complication type: uncomplicated Adrenal insufficiency E27.40 Transaminitis R74.01 Time Spent (min) 16
[2025-05-15 09:28] VITALS: BP 110/80; PULSE 79; O2SAT 97; BMI 47.5
== END 2025-05-15 09:48 | disposition home or self-care (01) ==
LOC: HO.HPS 09:04
PROVIDERS: PCP Internal Medicine; Visit Provider Hospitalist
DX: G47.33 Obstructive sleep apnea (adult) (pediatric) (principal); G70.00 Myasthenia gravis without (acute) exacerbation; J45.20 Mild intermittent asthma, uncomplicated; E27.40 Unspecified adrenocortical insufficiency; R74.01 Elevation of levels of liver transaminase levels
CPT/HCPCS: 99214; G2211

== ENCOUNTER 2025-05-17 11:30 | Outpatient (REF) | payer OTHER, SELFPAY ==
[2025-05-17 13:13] LABS: Alanine Aminotransferase 45 U/L (0-31); Albumin Level 5.1 g/dL (3.5-5.0); Alkaline Phosphatase 76 U/L (39-117); Aspartate Amino Transferase 43 U/L (5-31); Total Protein 7.9 g/dL (6.5-8.0)
[2025-05-17 13:30] LABS: HBS Num1 2.55 mIU/mL (0-7.99); HBc Num1 0.06 S/CO (0.00-0.79); HBsAGNum1 0.32 S/CO (0.00-0.99); Hepatitis A Antibody IgM 0.23 Index (0-0.79); Hepatitis B Surface Antigen Negative (Negative); ~HepC Num1 0.10 S/CO (0.00-0.79); ~Hepatitis A Antibody IgM Nonreactive (Nonreactive); ~Hepatitis B Surface Antibody NONREACTIVE (Nonreactive); ~Hepatitis C Antibody Nonreactive (Nonreactive)
== END 2025-05-17 11:31 | disposition home or self-care (01) ==
LOC: HO.LAB 11:30
PROVIDERS: PCP Internal Medicine; Visit Provider Hospitalist
DX: R74.01 Elevation of levels of liver transaminase levels (principal)
CPT/HCPCS: 36415; 80076; 86704; 86706; 86709; 86803; 87340

== ENCOUNTER 2025-05-23 15:33 | Outpatient (AMB) | payer OTHER, SELFPAY ==
--- NOTE | 2025-05-23 15:35 | MHC.OFFVIS ---
Vital Signs 05/23/25 15:36 Height 5 ft 5 in Weight 284 lb BMI 47.3 BP 129/85 Blood Pressure Location Lt radial Position Sitting Pulse 100 Intake Visit Reasons: Chronic diarrhea, was Berenice rosado last seen 04/15/22 Intake Note: Denisse presents in the office as a new patient - seen Berenice in 2021. CC: States she is having diarrhea and pains in the stomach. Lots of acid reflux - every day. Hospice Admitting Clerk Required: Yes Hospice Admitting Clerk Services: Hospice Admitting Clerk Present Hospice Admitting Clerk Name: [id number] Allergies erythromycin base Allergy (Intermediate, Verified 05/23/25 15:37) Swelling levofloxacin (From LEVAQUIN) Allergy (Intermediate, Verified 05/23/25 15:37) RASH AND HIVES Penicillins (PENICILLINS) Allergy (Intermediate, Verified 05/23/25 15:37) Swelling metformin Adverse Reaction (Severe, Verified 05/23/25 15:37) contraindicated in myasthenia gravis dulaglutide (From Trulicity) Adverse Reaction (Intermediate, Verified 05/23/25 15:37) inadequate response HPI HPI Chronic diarrhea, was Berenice rosado last seen 04/15/22: Details: Patient is a 34-year-old female with PMH of MYNOR, obesity, asthma, hypertension, GERD and myasthenia gravis. Referred by PCP for abdominal pain. Last visit with JARETH Gilliam 04/15/2022 for stool changes. Patient is accompanied by her toddler son. She reports ongoing gastrointestinal symptoms including abdominal pain, diarrhea, and acid reflux. Shares endoscopy planned for 2021 was not complete due to active workup and treatment for myasthenia gravis. States she is well established with [facility] neurology. She reports stomach pain located between the stomach and umbilical area, present upon waking and persisting throughout the day, only subsiding during sleep. The pain is severe enough to interfere with eating at times. She experiences episodes of diarrhea lasting two to three weeks, occurring approximately once a month, with blood visible in stools and upon wiping. Stool color varies from very dark to very light. She complains of significant acid reflux and has been managing symptoms with Pepcid 40mg most days of the week, which helps alleviate heartburn and reduces pain a little. Omeprazole, discontinued about a month ago, is no longer effective. Sometimes she feels hungry but is unable to eat due to pain. She notes her current symptoms feel similar to her H. pylori infection and stomach ulcer experience at age 16. She denies nausea, vomiting, or difficulty swallowing except during active myasthenia gravis flares. Patient denies: fever/chills, regurgitation, dysphasia or unintentional wt loss. Social History - Currently disabled - Has child aged 1 year 4 months [facility] Medical History (Updated 05/23/25 @ 17:41 by Stephanie Mayorga CNP) Hypertension Myasthenia gravis Moderate recurrent major depression Chronic cough MYNOR (obstructive sleep apnea) COVID-19 vaccine series completed Chronic diarrhea Obesity due to excess calories Myasthenia gravis Asthma Sleep apnea GERD (gastroesophageal reflux disease) Morbid obesity CAD (coronary artery disease) Lower back pain Surgical History H/O section History of esophagogastroduodenoscopy (EGD) S/P thymectomy History of tonsillectomy and adenoidectomy History of cholecystectomy Family History Father Hypertension Diabetes Mother Diabetes Hypertension Maternal Grandfather Diabetes Hypertension Bone cancer Maternal Aunt Breast cancer Maternal Grandmother Diabetes Hypertension CVD (cardiovascular disease) Other Mental health disorder Social History Housing: Apartment Are you a primary special needs caregiver to a significant other at home: No Do you presently have visiting nurse or other home services: Yes Alcohol intake: never Patient Tobacco Use Status: Never used Tobacco e-Cigarette/Vaping Use: Never Used Second Hand Smoke Exposure: No service: No Current occupational status: unemployed Current occupational exposures/hazards: No Cognitive needs: Yes (walker) Hearing needs: No Vision needs: No Female Reproductive History Menstrual Age of Menarche: 11 Review of Systems Const Reports as per HPI ENT Reports as per HPI Card Reports as per HPI Resp Reports as per HPI GI Reports as per HPI Reports as per HPI Physical Exam Vital Signs: Last Vital Signs Pulse 100 05/23/25 15:36 BP 129/85 05/23/25 15:36 BMI result Body Mass Index 47.3 Const General: healthy appearing, no acute distress and well developed Nutritional Appearance: well nourished Orientation/consciousness: patient oriented x3 HEENT Head: Yes normal to inspection, Yes normocephalic and Yes atraumatic Face and sinus: Yes normal facial exam Eyes General: appearance normal, both eyes and all related structures Neck Neck: Yes normal visual inspection Resp Effort & Inspection: normal respiratory effort, able to speak in complete sentences, no tracheal deviation and symmetric chest movement Auscultation: clear to auscultation bilaterally Cardio Jugular venous distension: no JVD Rate: regular rate Rhythm: regular rhythm Heart sounds: S1 normal heart sound present, S2 normal heart sound present, no gallops and no murmurs GI Inspection: Yes normal to inspection, No distended and Yes obesity Palpation (GI): Soft to palpation, not firm, nontender and No hepatosplenomegaly present Auscultation: Hypoactive bowel sounds present Neuro General: patient oriented x3 Gait exam (Neuro): Normal gait present Psych Appearance: grossly normal Mental Status: mental status grossly normal Speech and movement: Normal speech and movement present Affect: normal affect Attitude: cooperative Thought process: Normal thought process present Thought content: Normal thought content present Insight: Good insight present (Psych) Judgement: Good judgement present (Psych) Assessment & Plan Assessment & Plan (1) GERD (gastroesophageal reflux disease): Code(s): K21.9 - Gastro-esophageal reflux disease without esophagitis Category: Medical Qualifiers: Esophagitis presence: esophagitis presence not specified Qualified Code(s): K21.9 - Gastro-esophageal reflux disease without esophagitis Plan: Chronic umbilical pain with significant acidity, minimal relief with current Pepcid 40mg. - Hold Pepcid for 24 hours prior to H. pylori breath test. - Schedule H. pylori breath test within 24-48 hours to rule out recurrent infection. - Prescribe sucralfate as needed for symptom management until H. pylori test results. - Initiate pantoprazole 20 mg daily after H. pylori test results. - Schedule upper endoscopy pending cardiology clearance. (2) Transaminitis: Code(s): R74.01 - Elevation of levels of liver transaminase levels Category: Medical Plan: Recent laboratory results show elevated liver enzymes of unclear etiology. - Hepatopancreatobiliary workup initiated - Review results at follow-up appointment. (3) Diarrhea: Code(s): R19.7 - Diarrhea, unspecified Category: Medical Qualifiers: Diarrhea type: unspecified type Qualified Code(s): R19.7 - Diarrhea, unspecified Plan: Intermittent diarrhea 2-3 weeks per month with blood in stool, varying stool colors, associated abdominal pain. - Order stool studies to check for inflammation. - Order celiac disease screening. - Schedule endoscopy pending cardiology clearance. - Rx'd anti-diarrheal medication as needed. (4) Myasthenia gravis, acetylcholine receptor antibody positive: Code(s): G70.00 - Myasthenia gravis without (acute) exacerbation Category: Medical Plan: Stable on pyridostigmine, managed by specialist. - Continue current management with neurologist. - Ensure coordination of care with other specialists. Plan Follow-up in 8 weeks or sooner as needed Time: I spent a total of 50 minutes on the date of encounter which includes: Preparing to see the patient (reviewed previous documentation, test results and medical history) Performing a medically appropriate exam and/or evaluation Ordering medications, tests, and procedures Documenting clinical information in the health record Orders: Orders Transglutaminase IgA Today R74.01 - Elevation of levels of liver transaminase levels Smooth Muscle Antibody Today R74.01 - Elevation of levels of liver transaminase levels Mitochondrial Antibody Today R74.01 - Elevation of levels of liver transaminase levels Lipase Today R74.01 - Elevation of levels of liver transaminase levels Prothrombin Time INR Today R74.01 - Elevation of levels of liver transaminase levels H Pylori Breath Test Today K21.9 - Gastro-esophageal reflux disease without esophagitis Calprotectin, Fecal Today R74.01 - Elevation of levels of liver transaminase levels C Reactive Protein Today R74.01 - Elevation of levels of liver transaminase levels Liver Fibrosis Pnl Today R74.01 - Elevation of levels of liver transaminase levels Ferritin Today R74.01 - Elevation of levels of liver transaminase levels Medications: New famotidine Take one tablet daily 40 mg PO BEDTIME 90 tabs 0RF sucralfate Take on tablet two times daily as needed. Take an empty stomach. Avoid antacids within 30 minutes. 1 g PO BID 90 tabs 1RF polyethylene glycol 3350 (Miralax) per colonoscopy prep instructions 238 grams PO ONCE 238 grams 0RF bisacodyl Take four tablets once for 1 day per colonoscopy instructions 5 mg PO ONCE 4 tabs 0RF 1 day pantoprazole 20 mg PO DAILY 90 tabs 1RF loperamide 4 mg orally PRN; 4 mg, followed by 2 mg after each loose stool; maximum: 16 mg/day 90 caps 1RF loose stool Discontinued omeprazole Discontinued Reason: Doctor's Order 20 mg PO DAILY 90 days 90 caps 0RF Coding Level of Care Code New Pt New Pt Level 4 (83705) Patient Type New Diagnoses Gastroesophageal reflux disease, unspecified whether esophagitis present K21.9 Esophagitis presence: esophagitis presence not specified Transaminitis R74.01 Diarrhea, unspecified type R19.7 Diarrhea type: unspecified type Myasthenia gravis, acetylcholine receptor antibody positive G70.00
[2025-05-23 15:36] VITALS: BP 129/85; PULSE 100; BMI 47.3
== END 2025-05-23 16:28 | disposition home or self-care (01) ==
LOC: HO.HGI 15:34
PROVIDERS: PCP Internal Medicine; Visit Provider Nurse Practitioner Family
DX: K21.9 Gastro-esophageal reflux disease without esophagitis (principal); R74.01 Elevation of levels of liver transaminase levels; R19.7 Diarrhea, unspecified; G70.00 Myasthenia gravis without (acute) exacerbation
CPT/HCPCS: 99204

== ENCOUNTER → 2025-05-23 15:33 | Outpatient (BNVA) | payer OTHER, SELFPAY | PROVIDERS: PCP Internal Medicine; Visit Provider Nurse Practitioner Family | DX: K21.9 Gastro-esophageal reflux disease without esophagitis (principal); R74.01 Elevation of levels of liver transaminase levels; R19.7 Diarrhea, unspecified; G70.00 Myasthenia gravis without (acute) exacerbation; R10.9 Unspecified abdominal pain | CPT/HCPCS: 99202 ==

== ENCOUNTER 2025-05-31 | Outpatient (REF) | payer OTHER, SELFPAY ==
[2025-05-31 09:42] LABS: MANUAL DIFF FLAG NO
[2025-05-31 09:48] LABS: Hematocrit 43.5 % (37.0-47.0); Hemoglobin 14.7 g/dl (12.0-16.0); Imm Gran Abs Auto 0.04 X10*3/uL (0.00-0.03); Imm Gran Pct Auto 0.4 % (0.0-0.4); Lymphocytes Absolute Auto 3.2 X10*3/uL (1.2-4.9); Mean Corpuscular HGB Conc 33.8 g/dl (31.0-35.0); Mean Corpuscular Hemoglobin 29.3 pg (27.0-33.0); Mean Corpuscular Volume 86.7 fL (80.0-98.0); NRBC Abs Auto 0.000 X10*3/uL (0.0-0.012); NRBC Pct Auto 0.0 /100WBC (0.0-0.2); Platelet Count 278 X10*3/uL (160-400); Red Blood Count 5.02 X10*6/uL (4.20-5.50); White Blood Count 10.4 X10*3/uL (4.8-10.8)
[2025-05-31 10:55] LABS: INTERNATIONAL NORM RATIO 1.0 (0.9-1.1); Prothrombin Time 12.0 SEC (10.9-12.4)
[2025-05-31 11:12] LABS: Lipase 43 U/L (8-78)
[2025-05-31 11:29] LABS: Ferritin 112 ng/mL (10-122)
[2025-05-31 11:54] LABS: Appearance Urine Clear; Glucose Urine UA >=1000 mg/dL (Negative); PH 5.5 (5.0-9.0); Specific Gravity - Urine >= 1.030 (1.005-1.025); UMIC TRIGGER UACC YES
[2025-06-09 09:04] LABS: FIB-ALT 36 U/L (6-29); FIB-Alpha-2-Macroglobulin 205 mg/dL (106-279); FIB-Apolipoprotein A1 143 mg/dL (101-198); FIB-GGT 28 U/L (3-50); FIB-Haptoglobin 247 mg/dL (43-212); FIB-Total Bilirubin 0.3 mg/dL (0.2-1.2); Liver Fibrosis Score 0.06; Liver Fibrosis Stage F0; Nec Inflam Act Grade A0; Nec Inflam Act Score 0.14
== END 2025-05-31 00:01 | disposition home or self-care (01) ==
LOC: HO.LAB
PROVIDERS: Absent Provider Nurse Practitioner Family; PCP Internal Medicine; Visit Provider Nurse Practitioner Family
DX: G70.00 Myasthenia gravis without (acute) exacerbation (principal); K21.9 Gastro-esophageal reflux disease without esophagitis; R74.01 Elevation of levels of liver transaminase levels
CPT/HCPCS: 36415; 81001; 81596; 82728; 83690; 85025; 85610; 86015; 86140; 86364; 86381; 99211

== ENCOUNTER 2025-05-31 08:48 | Outpatient (AMB) | payer OTHER, SELFPAY ==
--- NOTE | 2025-05-31 09:20 | AM.OFFVISNUR ---
Intake Visit Reasons: h pylori Intake Note: Patient presents for collection of?H Pylori?breath test. Patient has been fasting for 1 hour (nothing to eat, drink, no chewing gum or smoking) has not taken any antacid medication for at least 2 weeks and has no allergies to artificial sweeteners.?? Allergies erythromycin base Allergy (Intermediate, Verified 05/23/25 15:37) Swelling levofloxacin (From LEVAQUIN) Allergy (Intermediate, Verified 05/23/25 15:37) RASH AND HIVES Penicillins (PENICILLINS) Allergy (Intermediate, Verified 05/23/25 15:37) Swelling metformin Adverse Reaction (Severe, Verified 05/23/25 15:37) contraindicated in myasthenia gravis dulaglutide (From Trulicity) Adverse Reaction (Intermediate, Verified 05/23/25 15:37) inadequate response Assessment & Plan Assessment & Plan (1) GERD (gastroesophageal reflux disease): Code(s): K21.9 - Gastro-esophageal reflux disease without esophagitis Category: Medical Qualifiers: Esophagitis presence: esophagitis presence not specified Qualified Code(s): K21.9 - Gastro-esophageal reflux disease without esophagitis (2) Chronic diarrhea: Code(s): K52.9 - Noninfective gastroenteritis and colitis, unspecified Category: Medical (3) Abdominal pain: Code(s): R10.9 - Unspecified abdominal pain Category: Medical Plan Patient presents for collection of?H Pylori?breath test. Patient has been fasting for 1 hour (nothing to eat, drink, no chewing gum or smoking) has not taken any antacid medication for at least 2 weeks and has no allergies to artificial sweeteners.???This test checks for an overgrowth of bacteria in your stomach. We all have bacteria but some may have more than others. It is treatable. if the test comes back negative there is nothing else to do. If the test result is positive we will treat you with 2 antibiotics and a medication to decrease the acid in your stomach (PPI) for 2 weeks. Two weeks after you have completed the treatment we will retest you to make sure the overgrowth has resolved. Patient Instructions: Process for specimen collection and reason for testing was explained to the patient. Specimen collection. Patient instructed to take a deep breath and then exhale into the blue bag, filling it up as much as possible. Patient instructed to drink a mixture of water and the artificial sweetener with a straw. A 15 minute wait period was observed. Patient instructed to take a deep breath and then exhale into the pink bag, filling it up as much as possible.?? Coding Level of Care Code Est Pt Level 1 (84454) Diagnoses Gastroesophageal reflux disease, unspecified whether esophagitis present K21.9 Esophagitis presence: esophagitis presence not specified Chronic diarrhea K52.9 Abdominal pain R10.9
== END 2025-05-31 09:22 | disposition home or self-care (01) ==
LOC: HO.HGI 08:49
PROVIDERS: PCP Internal Medicine; Visit Provider Nurse Practitioner Family
DX: K21.9 Gastro-esophageal reflux disease without esophagitis (principal); K52.9 Noninfective gastroenteritis and colitis, unspecified; R10.9 Unspecified abdominal pain

== ENCOUNTER 2025-05-31 13:19 | Outpatient (REF) | payer OTHER, SELFPAY | END 2025-05-31 13:20 | disposition home or self-care (01) | LOC: HO.LNP 13:19 | PROVIDERS: Visit Provider Nurse Practitioner Family | DX: K21.9 Gastro-esophageal reflux disease without esophagitis (principal); R74.01 Elevation of levels of liver transaminase levels | CPT/HCPCS: 83013 ==

== ENCOUNTER 2025-06-04 08:32 | Outpatient (AMB) | payer OTHER, SELFPAY ==
--- NOTE | 2025-06-04 09:20 | A.OFFVIS_ITS ---
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 erythromycin base Allergy (Intermediate, Verified 06/04/25 09:26) Swelling levofloxacin (From LEVAQUIN) Allergy (Intermediate, Verified 06/04/25 09:26) RASH AND HIVES Penicillins (PENICILLINS) Allergy (Intermediate, Verified 06/04/25 09:26) Swelling metformin Adverse Reaction (Severe, Verified 06/04/25 09:26) contraindicated in myasthenia gravis dulaglutide (From Trulicity) Adverse Reaction (Intermediate, Verified 06/04/25 09:26) inadequate response Medication List - Last Reconciled 06/04/25 by Cuco Vizcarra MD albuterol sulfate 2.5 mg (3 mL) inhalation QID PRN albuterol sulfate 90 mcg/actuation 2 inhalations inhalation QID PRN atorvastatin 20 mg PO BEDTIME 90 days azathioprine 50 mg PO DAILY 30 days bismuth subsalicylate 524 mg (2 x 262 mg) PO QID 14 days blood sugar diagnostic (FreeStyle Lite Strips) As directed three times a day blood-glucose meter (FreeStyle Lite Meter kit) As directed 3x/day budesonide-formoterol 160-4.5 mcg/actuation (Symbicort) 2 inhalations inhalation BID cetirizine (Zyrtec) 10 mg PO DAILY 90 days cholecalciferol (vitamin D3) 50 mcg (2 x 25 mcg (1,000 unit)) PO DAILY 30 days diclofenac potassium 50 mg PO BID PRN 30 days efgartigimod jorgito-fcab (Vyvgart) 1,200 mg (60 mL) IV QWEEK 4 weeks empagliflozin (Jardiance) 25 mg PO DAILY famotidine 40 mg PO BEDTIME ferrous sulfate (Iron (ferrous sulfate)) 325 mg PO DAILY fluticasone propionate 50 mcg/actuation (Flonase Allergy Relief) 1 spray intranasal BID 30 days immun glob G(IgG)-gly-IgA ov50 10 % (Gammagard Liquid) IVIG Gammagard 10% at 50gm qd x's 5 days every 3 weeks w/ pre-tx w/ benadryl and toradaol- to prevent IVIG r/t headache. Toradol order: 30 mg (2ml) IV 15 minutes prior to IVIG infusion, and then q 6 hrs prn (NTE 120mg per 24 hrs) intravenously every 6 to 8 hours PRN; Benadryl order: 50mg IV Push x's 1 3 weeks ketorolac 10 mg PO Q8H PRN 5 days ketorolac 30 mg (2ml) IV 15 minutes prior to IVIG infusion, and then q 6 hrs prn (NTE 120mg per 24 hrs) intravenously every 6 to 8 hours PRN; 5 days lancets (FreeStyle Lancets) Use 1 lancet three times a day lisinopril 10 mg PO DAILY loperamide 4 mg orally PRN; 4 mg, followed by 2 mg after each loose stool; maximum: 16 mg/day metronidazole 500 mg PO QID nebulizers As directed pantoprazole 40 mg PO BID pen needle, diabetic (BD Ultra-Fine Mini Pen Needle) As directed pen needle, diabetic (Comfort EZ Pen Argillite) As directed polyethylene glycol 3350 (Miralax) 238 grams PO ONCE pyridostigmine bromide 30 - 60 mg (0.5 - 1 x 60 mg) PO TID 30 days pyridostigmine bromide ER 180 mg PO QID semaglutide (Ozempic) 1 mg (0.75 mL) subcut QWEEK 4 weeks Shower Chair shower chair with arms. To prevent falls d/t weakness d/t myasthenia gravis. 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*: Details: Start time: 9.08am, End time: 10.38am I spent 85 minutes speaking with the patient on the phone plus an additional 5 minutes reviewing and updating records for a total of 90 minutes HPI Comments Details: Previous weight loss efforts: self diet and exercise Wakes up: 5am, Sleeps: 9pm Breakfast: 9-10am (bread, oatmeal, cereal) Lunch: 1-2pm (rice, salad, meat) Dinner: 7pm Snacks: 10am (yogurt) Exercise: none Beverages: Coffee: none, Tea: rarely, Soda: Diet Coke, Juice: apple juice/west juice/lemon juice daily, ETOH: none PFSH Medical History (Updated 06/04/25 @ 09:51 by Cuco Vizcarra MD) Morbid obesity Migraines Hypertension Myasthenia gravis Moderate recurrent major depression Chronic cough MYNOR (obstructive sleep apnea) COVID-19 vaccine series completed Chronic diarrhea Obesity due to excess calories Myasthenia gravis Asthma Sleep apnea GERD (gastroesophageal reflux disease) CAD (coronary artery disease) Lower back pain Surgical History H/O section History of esophagogastroduodenoscopy (EGD) S/P thymectomy History of tonsillectomy and adenoidectomy History of cholecystectomy Family History Father Hypertension Diabetes Mother Diabetes Hypertension Maternal Grandfather Diabetes Hypertension Bone cancer Maternal Aunt Breast cancer Maternal Grandmother Diabetes Hypertension CVD (cardiovascular disease) Other Mental health disorder Social History Housing: Apartment Are you a primary wound care nurse to a significant other at home: No Do you presently have visiting nurse or other home services: Yes Alcohol intake: never Patient Tobacco Use Status: Never used Tobacco e-Cigarette/Vaping Use: Never Used Second Hand Smoke Exposure: No service: No Current occupational status: unemployed Current occupational exposures/hazards: No Cognitive needs: Yes (walker) Hearing needs: No Vision needs: No Female Reproductive History Menstrual Age of Menarche: 11 Physical Exam Vital Signs: BMI result Body Mass Index 47.1 Quality Reporting (2020) Adult ([facility] 138/2//) Smoking risk assessment performed?: Yes Patient Tobacco Use Status: Never used T obacco Telehealth Telehealth Telehealth Platform: Telephone Location of provider rendering services: practice address Location of patient: address on file Patient Identification confirmed using: Name, : Yes Telehealth method: voice only Patient verbally consented to treatment: Yes Patient verbally consented to billing insurance company: Yes Patient informed of any privacy concerns related to visit: Yes Minutes spent on Phone/Video with Pt.: 90 Assessment & Plan Assessment & Plan (1) Morbid obesity: Code(s): E66.01 - Morbid (severe) obesity due to excess calories Category: Medical Plan: 1. Plan for lap sleeve gastrectomy. If diaphragmatic or ventral hernias are present at time of surgery, these will be repaired laparoscopically as well. I emphasized the importance of close follow-up, adherence to instructions and good communication. The surgery does not replace the need to change your lifestlyle which is the cause of the obesity problem. The surgery provides the motivation to try again to change your lifestyle, it reduces the appetite and make the transition to a better lifestyle easier and doubles the amount of weight you would lose compared to doing the lifestyle change without the surgery. You will need to be on a liquid diet with protein shakes for 2 weeks before surgery to maximize weight loss and boost your nutritional status to recover better from surgery and also for the first two weeks after surgery to let the stomach heal before we introduce other foods. After the first 2 weeks we will introduce protein bars and soft foods like scrambled eggs, cottage cheese and yogurt and after the 6th week will introduce meat, fish and cooked vegetables in small amounts. Over time you should be able to eat everything in small amounts. Side effects like nausea, vomiting, heartburn or abdominal pain are not common in the practice unless you are not following in the practice. This operation requires lifetime commitment to following in our practice and communication with me. You will much less weight and experience side effects if you don?t communicate or not following in the practice. Complications are rare and in our practice is about 1/10 of the national average. However, you can develop bleeding that may require transfusion (hasn?t happened for year in the practice), you may from complications (we did not have any deaths in the practice) and infections. Infections are usually a result of breakdown in communication or not understanding or following directions correctly. They are difficult to treat, they can happen during the first 6 weeks, they may require to be in the hospital for weeks or even months, not being able to eat by mouth and you may have drains and surgeries to try and correct the issue. Other risks and complications include possible conversion to an open procedure, leaks, small bowel obstruction, blood clots, cardiac, or pulmonary complications, as press tender long goods complications such as ulcers, insufficient weight loss and vitamin deficiencies. 2.Nutritional counseling. Start with one premade PREMIER protein (buy at [email or web address], or [employer], or [employer]) shake (8oz of PREMIER and NOT the whole bottle) at 6am-8am, 1 protein bar (16gr Fit Crunch protein bars, buy at [email or web address], [employer] or [employer]) at 9am-11am, another premade PREMIER protein (buy at [email or web address], or [employer], or [employer]) shake (8oz of PREMIER and NOT the whole bottle) at 12pm-2pm, another Fit Crunch protein bar at 3pm-5pm, dinner at 6pm (10 forks of protein and 10 forks of salad/vegetables) and another HALF Fit Crunch protein bar after dinner at 9pm- 10pm. So you do 2 protein shakes, 2.5 protein bars and one meal per day. Meal to include lean meat (beef, fish, pork, turkey, chicken), or estonian yogurt, or egg whites, or beans with a salad with olive oil and fruits (berries, pears, apples, kiwi). Avoid salt, breads, potatoes, rice, pasta, desserts. 3. Each shake would be drunk slowly, like coffee in a period of 2 hours. 4. Cut each bar in 4 pieces and eat each piece in 30min to make each bar last 2 hours. 5. I emphasized the importance of measuring accurately the food portion and measure it when serving the food in plate 6. The meal portions include 10 full-size forks of meat and 10 full-size forks of salad. You always eat the meat portion but you can replace up to 5 forks for salad/vegetables with rice, potatoes or pasta, or a fruit if you like. The less you do it the better weight loss will be. 7. One full-size fork is what it can be scooped on the fork without falling aside and not what can be bit with the fork. Use regular forks like those you find in a typical restaurant. 8. Please buy the body composition scale we discussed and send me weight measurements as soon as possible and then once a week. Always include your diet and exercise plan. 9. Start walking outside daily, tracking calories with a goal of 300 calories per day, daily. Goal is to burn 2000 calories per week on exercise, which means either 300 calories daily, or 400 calories 5 days per week, or 500 calories 4 days per week, or 650 calories 3 days per week. 10. The best choice would be to purchase a stationary bike at home that can t rack calories. Once you get the bike, start stationary bike at a resistance level of 4.0 Increase level by 1.0 every 3 min to a max level of 10.0. Stay at this level for 3 min and then return to level 4.0 and repeat same steps until 300 calories are burned. Goal is to burn 2000 calories per week on exercise 11. It is important of avoiding and for at least 18 months postoperatively and has been discussed at the infosession. 12. Goal is to lose at least 1.5-2lbs per week 13. Goal to lose 10% of your weight before surgery, which is about 28lbs. Ultimate weight goal: 255lbs before surgery 14. Please follow the diet plan exactly without any change. If you don't like something about the plan or you feel hungry you need to communicate with me so I can help you revise the plan. You should not change the plan yourself 15. To be scheduled for EGD to assess the stomach's anatomy. The possibility of biopsies was discussed. Patient needs to avoid use of NSAIDs and aspirin for 1 week prior to EGD. You must be on liquids only the day before your endoscopy. Risks of perforation and bleeding was discussed with the patient. This will be an outpatient procedure with IV sedation. 16. As of tomorrow, please send me a picture of your meal plate after you measure it, but before you consume it. Orders: Orders Insulin Today D64.9 - Anemia, unspecified, E11.9 - Type 2 diabetes mellitus without complications, E66.01 - Morbid (severe) obesity due to excess calories, E78.5 - Hyperlipidemia, unspecified, I10 - Essential (primary) hypertension, I25.10 - Atherosclerotic heart disease of rincon coronary artery without angina pectoris, J45.20 - Mild intermittent asthma, uncomplicated, K21.9 - Gastro- esophageal reflux disease without esophagitis Hemoglobin A1c Today D64.9 - Anemia, unspecified, E11.9 - Type 2 diabetes mellitus without complications, E66.01 - Morbid (severe) obesity due to excess calories, E78.5 - Hyperlipidemia, unspecified, I10 - Essential (primary) hypertension, I25.10 - Atherosclerotic heart disease of rincon coronary artery without angina pectoris, J45.20 - Mild intermittent asthma, uncomplicated, K21.9 - Gastro-esophageal reflux disease without esophagitis H Pylori Breath Test Today D64.9 - Anemia, unspecified, E11.9 - Type 2 diabetes mellitus without complications, E66.01 - Morbid (severe) obesity due to excess calories, E78.5 - Hyperlipidemia, unspecified, I10 - Essential (primary) hypertension, I25.10 - Atherosclerotic heart disease of rincon coronary artery without angina pectoris, J45.20 - Mild intermittent asthma, uncomplicated, K21.9 - Gastro-esophageal reflux disease without esophagitis Complete Blood Count Auto Diff Today D64.9 - Anemia, unspecified, E11.9 - Type 2 diabetes mellitus without complications, E66.01 - Morbid (severe) obesity due to excess calories, E78.5 - Hyperlipidemia, unspecified, I10 - Essential (primary) hypertension, I25.10 - Atherosclerotic heart disease of rincon coronary artery without angina pectoris, J45.20 - Mild intermittent asthma, uncomplicated, K21.9 - Gastro-esophageal reflux disease without esophagitis Lipid Panel Today D64.9 - Anemia, unspecified, E11.9 - Type 2 diabetes mellitus without complications, E66.01 - Morbid (severe) obesity due to excess calories, E78.5 - Hyperlipidemia, unspecified, I10 - Essential (primary) hypertension, I25.10 - Atherosclerotic heart disease of rincon coronary artery without angina pectoris, J45.20 - Mild intermittent asthma, uncomplicated, K21.9 - Gastro- esophageal reflux disease without esophagitis IRON PROFILE Today D64.9 - Anemia, unspecified, E11.9 - Type 2 diabetes mellitus without complications, E66.01 - Morbid (severe) obesity due to excess calories, E78.5 - Hyperlipidemia, unspecified, I10 - Essential (primary) hypertension, I25.10 - Atherosclerotic heart disease of rincon coronary artery without angina pectoris, J45.20 - Mild intermittent asthma, uncomplicated, K21.9 - Gastro-esophageal reflux disease without esophagitis Comprehensive Met. Panel Today D64.9 - Anemia, unspecified, E11.9 - Type 2 diabetes mellitus without complications, E66.01 - Morbid (severe) obesity due to excess calories, E78.5 - Hyperlipidemia, unspecified, I10 - Essential (primary) hypertension, I25.10 - Atherosclerotic heart disease of rincon coronary artery without angina pectoris, J45.20 - Mild intermittent asthma, uncomplicated, K21.9 - Gastro-esophageal reflux disease without esophagitis Vitamin B1 Today D64.9 - Anemia, unspecified, E11.9 - Type 2 diabetes mellitus without complications, E66.01 - Morbid (severe) obesity due to excess calories, E78.5 - Hyperlipidemia, unspecified, I10 - Essential (primary) hypertension, I25.10 - Atherosclerotic heart disease of rincon coronary artery without angina pectoris, J45.20 - Mild intermittent asthma, uncomplicated, K21.9 - Gastro- esophageal reflux disease without esophagitis Vitamin A Today D64.9 - Anemia, unspecified, E11.9 - Type 2 diabetes mellitus without complications, E66.01 - Morbid (severe) obesity due to excess calories, E78.5 - Hyperlipidemia, unspecified, I10 - Essential (primary) hypertension, I25.10 - Atherosclerotic heart disease of rincon coronary artery without angina pectoris, J45.20 - Mild intermittent asthma, uncomplicated, K21.9 - Gastro-esophageal reflux disease without esophagitis TSH reflex Free T4 Today D64.9 - Anemia, unspecified, E11.9 - Type 2 diabetes mellitus without complications, E66.01 - Morbid (severe) obesity due to excess calories, E78.5 - Hyperlipidemia, unspecified, I10 - Essential (primary) hypertension, I25.10 - Atherosclerotic heart disease of rincon coronary artery without angina pectoris, J45.20 - Mild intermittent asthma, uncomplicated, K21.9 - Gastro-esophageal reflux disease without esophagitis US abdomen comp w elastography Today D64.9 - Anemia, unspecified, E11.9 - Type 2 diabetes mellitus without complications, E66.01 - Morbid (severe) obesity due to excess calories, E78.5 - Hyperlipidemia, unspecified, I10 - Essential (primary) hypertension, I25.10 - Atherosclerotic heart disease of rincon coronary artery without angina pectoris, J45.20 - Mild intermittent asthma, uncomplicated, K21.9 - Gastro-esophageal reflux disease without esophagitis ECG 12 lead EKG Today D64.9 - Anemia, unspecified, E11.9 - Type 2 diabetes mellitus without complications, E66.01 - Morbid (severe) obesity due to excess calories, E78.5 - Hyperlipidemia, unspecified, I10 - Essential (primary) hypertension, I25.10 - Atherosclerotic heart disease of rincon coronary artery without angina pectoris, J45.20 - Mild intermittent asthma, uncomplicated, K21.9 - Gastro-esophageal reflux disease without esophagitis Vitamin B12 and Folate Today D64.9 - Anemia, unspecified, E11.9 - Type 2 diabetes mellitus without complications, E66.01 - Morbid (severe) obesity due to excess calories, E78.5 - Hyperlipidemia, unspecified, I10 - Essential (primary) hypertension, I25.10 - Atherosclerotic heart disease of rincon coronary artery without angina pectoris, J45.20 - Mild intermittent asthma, uncomplicated, K21.9 - Gastro-esophageal reflux disease without esophagitis Zinc Today D64.9 - Anemia, unspecified, E11.9 - Type 2 diabetes mellitus without complications, E66.01 - Morbid (severe) obesity due to excess calories, E78.5 - Hyperlipidemia, unspecified, I10 - Essential (primary) hypertension, I25.10 - Atherosclerotic heart disease of rincon coronary artery without angina pectoris, J45.20 - Mild intermittent asthma, uncomplicated, K21.9 - Gastro- esophageal reflux disease without esophagitis C Reactive Protein Today D64.9 - Anemia, unspecified, E11.9 - Type 2 diabetes mellitus without complications, E66.01 - Morbid (severe) obesity due to excess calories, E78.5 - Hyperlipidemia, unspecified, I10 - Essential (primary) hypertension, I25.10 - Atherosclerotic heart disease of rincon coronary artery without angina pectoris, J45.20 - Mild intermittent asthma, uncomplicated, K21.9 - Gastro-esophageal reflux disease without esophagitis Ferritin Today D64.9 - Anemia, unspecified, E11.9 - Type 2 diabetes mellitus without complications, E66.01 - Morbid (severe) obesity due to excess calories, E78.5 - Hyperlipidemia, unspecified, I10 - Essential (primary) hypertension, I25.10 - Atherosclerotic heart disease of rincon coronary artery without angina pectoris, J45.20 - Mild intermittent asthma, uncomplicated, K21.9 - Gastro- esophageal reflux disease without esophagitis Vitamin D 25-OH Total Today D64.9 - Anemia, unspecified, E11.9 - Type 2 diabetes mellitus without complications, E66.01 - Morbid (severe) obesity due to excess calories, E78.5 - Hyperlipidemia, unspecified, I10 - Essential (primary) hypertension, I25.10 - Atherosclerotic heart disease of rin[place] coronary artery without angina pectoris, J45.20 - Mild intermittent asthma, uncomplicated, K21.9 - Gastro-esophageal reflux disease without esophagitis XR chest 2V Today D64.9 - Anemia, unspecified, E11.9 - Type 2 diabetes mellitus without complications, E66.01 - Morbid (severe) obesity due to excess calories, E78.5 - Hyperlipidemia, unspecified, I10 - Essential (primary) hypertension, I25.10 - Atherosclerotic heart disease of rin[place] coronary artery without angina pectoris, J45.20 - Mild intermittent asthma, uncomplicated, K21.9 - Gastro- esophageal reflux disease without esophagitis FL upper GI w air Today D64.9 - Anemia, unspecified, E11.9 - Type 2 diabetes mellitus without complications, E66.01 - Morbid (severe) obesity due to excess calories, E78.5 - Hyperlipidemia, unspecified, I10 - Essential (primary) hypertension, I25.10 - Atherosclerotic heart disease of rincon coronary artery without angina pectoris, J45.20 - Mild intermittent asthma, uncomplicated, K21.9 - Gastro-esophageal reflux disease without esophagitis Referrals Behavioral Health Referral D64.9 - Anemia, unspecified, E11.9 - Type 2 diabetes mellitus without complications, E66.01 - Morbid (severe) obesity due to excess calories, E78.5 - Hyperlipidemia, unspecified, I10 - Essential (primary) hypertension, I25.10 - Atherosclerotic heart disease of rincon coronary artery without angina pectoris, J45.20 - Mild intermittent asthma, uncomplicated, K21.9 - Gastro-esophageal reflux disease without esophagitis Nutrition/Dietitian Referral D64.9 - Anemia, unspecified, E11.9 - Type 2 diabetes mellitus without complications, E66.01 - Morbid (severe) obesity due to excess calories, E78.5 - Hyperlipidemia, unspecified, I10 - Essential (primary) hypertension, I25.10 - Atherosclerotic heart disease of rin[place] coronary artery without angina pectoris, J45.20 - Mild intermittent asthma, uncomplicated, K21.9 - Gastro-esophageal reflux disease without esophagitis
[2025-06-04 10:05] VITALS: BMI 47.1
== END 2025-06-04 10:39 | disposition home or self-care (01) ==
LOC: HO.HBS 08:32
PROVIDERS: PCP Internal Medicine; Visit Provider Surgery
DX: E66.01 Morbid (severe) obesity due to excess calories (principal); Z68.42 Body mass index [BMI] 45.0-49.9, adult
CPT/HCPCS: 98011

== ENCOUNTER 2025-06-14 07:28 | Outpatient (REF) | payer OTHER, SELFPAY ==
--- NOTE | ~2025-06-14 | US_ITS ---
EXAMINATION: US ABDOMEN COMPLETE WITH LIVER ELASTOGRAPHY HISTORY: E66.01 - Morbid (severe) obesity due to excess calories TECHNIQUE: Real-time grayscale ultrasound imaging of the abdomen was performed and images were reviewed. COMPARISON: Comparison is made with the prior examination dated 03/04/2023. FINDINGS: Liver: The right lobe of the liver measures 20.8 cm in size. The left lobe of the liver measures 12.3 cm in size. The liver demonstrates increased echotexture, consistent with steatosis. No focal mass or intrahepatic biliary ductal dilatation is identified. There is normal hepatopedal flow in the portal vein. Ultrasound elastography of the liver was performed with 10 separate measurements of the liver parenchyma with the patient in the supine position. Measurements were obtained approximately 2 cm below Estrella's capsule and perpendicular to the capsule. The median shear wave velocity is 1.44 m/s (previously 1.63 m/s). The interquartile range/median (IQR/median) is 0.08. Gallbladder and biliary tree: The gallbladder is surgically absent. The common bile duct is normal in caliber measuring 2 mm. Kidneys: The right kidney measures 11.8 cm in length. The left kidney measures 12.6 cm in length. The kidneys are unremarkable, without evidence of masses, hydronephrosis, or calculi. Pancreas: The pancreatic head, neck, and body are unremarkable. The pancreatic tail is obscured by bowel gas. Spleen: The spleen is normal in size and contour, measuring 12.7 cm in length. Abdominal aorta and inferior vena cava: The visualized portions of the abdominal aorta and inferior vena cava are normal in caliber. There is no free fluid in the abdomen. US/US abdomen comp w elastography IMPRESSION: Hepatomegaly and hepatic steatosis. The median shear wave velocity in the liver is 1.44 m/s, corresponding to a median liver stiffness of 6.32 kPa. The IQR/median value is 0.08. This is indicative of a quality data set. Findings are indicative of a low elastography value which rules out advanced chronic liver disease in asymptomatic patients. REFERENCE: Society of Radiologists in Ultrasound Liver Stiffness Thresholds (2020): LIVER STIFFNESS THRESHOLDS: *Shear wave velocity less than 1.3 m/s (Liver Stiffness equal or less than 5 kPa): High probability of being normal. *Shear wave velocity less than 1.7 m/s (Liver Stiffness less than 9 kPa): In the absence of other known clinical signs, rules out compensated advanced chronic liver disease. *Shear wave velocity between 1.7-2.1 m/s (Liver Stiffness 9-13 kPa): Suggestive of compensated advanced chronic liver disease but need further test for confirmation. *Shear wave velocity between 2.1-2.4 m/s (Liver Stiffness 13-17 kPa): Rules in compensated advanced chronic liver disease. *Shear wave velocity greater than 2.4 m/s (Liver Stiffness over 17 kPa): Suggestive of clinically significant portal hypertension. QUALITY OF DATA SET: *IQR/Median value equal or less than 0.15 implies a quality data set. *IQR/Median value over 0.15 implies a poor quality data set. SIGNIFICANT CHANGE FROM PRIOR EXAM: Significant change if liver stiffness measurement is 10% or greater from prior exam. OTHER CONSIDERATIONS: The stage of liver fibrosis may be overestimated in the setting of acute hepatitis, liver inflammation, elevated liver function tests, hepatic vascular congestion, obstructive cholestasis, non-fasting state, and infiltrative diseases such as amyloidosis and lymphoma. In some patients with NAFLD, the liver stiffness thresholds for compensated advanced chronic liver disease may be lower. In causes other than viral hepatitis and NAFLD, liver stiffness thresholds are not well established. Electronically signed by: Devon Hicks MD 06/14/2025 08:49 AM EDT
--- NOTE | ~2025-06-14 | XR_ITS ---
EXAMINATION: XR CHEST CLINICAL INFORMATION: E66.01 - Morbid (severe) obesity due to excess calories COMPARISON: October 27, 2021. TECHNIQUE: 2 views of the chest were obtained. FINDINGS: No hyperinflation. No consolidation pleural effusion or pneumothorax. Cardiomediastinal silhouette size is normal. S-shaped curvature of the thoracolumbar spine. Vascular clips right upper quadrant abdomen. Vascular clips overlapping the upper sternum manubrium. Patient's large body habitus. XR/XR chest 2V IMPRESSION: No acute airspace disease. Scoliosis, thoracolumbar spine. Probable status post cholecystectomy and prior thyroid surgery. Electronically signed by: David Norris MD 06/14/2025 08:09 AM EDT
[2025-06-14 07:45] LABS: MANUAL DIFF FLAG NO
[2025-06-14 07:56] LABS: Hematocrit 45.9 % (37.0-47.0); Hemoglobin 15.2 g/dl (12.0-16.0); Imm Gran Abs Auto 0.05 X10*3/uL (0.00-0.03); Imm Gran Pct Auto 0.4 % (0.0-0.4); Lymphocytes Absolute Auto 3.2 X10*3/uL (1.2-4.9); Mean Corpuscular HGB Conc 33.1 g/dl (31.0-35.0); Mean Corpuscular Hemoglobin 28.7 pg (27.0-33.0); Mean Corpuscular Volume 86.6 fL (80.0-98.0); NRBC Abs Auto 0.000 X10*3/uL (0.0-0.012); NRBC Pct Auto 0.0 /100WBC (0.0-0.2); Platelet Count 349 X10*3/uL (160-400); Red Blood Count 5.30 X10*6/uL (4.20-5.50); White Blood Count 12.7 X10*3/uL (4.8-10.8)
[2025-06-14 08:02] LABS: Hemoglobin A1C 298.7239 umol/L; Total Hemoglobin (HGBA1C) 3954.4955 umol/L
[2025-06-14 08:31] LABS: Alanine Aminotransferase 57 U/L (0-31); Albumin Level 4.9 g/dL (3.5-5.0); Alkaline Phosphatase 72 U/L (39-117); Anion Gap 15 (12-20); Aspartate Amino Transferase 48 U/L (5-31); Blood Urea Nitrogen 11 mg/dL (9-16); Calcium 9.6 mg/dL (8.4-10.2); Carbon Dioxide 21 mmol/L (22-29); Chloride 109 mmol/L (96-108); Cholesterol 166 mg/dL (<200); Estimated Glomerular Filt Rate > 60; HDL Cholesterol 33 mg/dL (>40); Iron 76 mcg/dL (30-160); Percent Iron Saturation 29 % (15-50); Potassium 3.8 mmol/L (3.3-5.1); Sodium 141 mmol/L (135-145); Total Iron Binding Capacity 263 mcg/dL (228-428); Total Protein 8.4 g/dL (6.5-8.0); Triglycerides 157 mg/dL (<150); Unsaturated Iron Binding 187 ug/dL
[2025-06-14 08:53] LABS: Folate 14.8 ng/mL (> or = 4.0); Vitamin B12 231 pg/mL (200-900)
[2025-06-14 08:54] LABS: Ferritin 118 ng/mL (10-122)
--- NOTE | 2025-06-14 11:07 | ECG_ITS ---
Test Reason : E66.01 Blood Pressure : */* mmHG Vent. Rate : 63 BPM Atrial Rate : 63 BPM P-R Int : 148 ms QRS Dur : 88 ms QT Int : 410 ms P-R-T Axes : 50 -2 7 degrees QTcB Int : 419 ms Normal sinus rhythm Normal ECG When compared with ECG of 11-Jun-2022 10:44, No significant change was found Referred By: Cuco Vizcarra Electronically Signed By: SONJA NGUYEN MD
== END 2025-06-14 07:29 | disposition home or self-care (01) ==
LOC: HO.US 07:28
PROVIDERS: Absent Provider Surgery; PCP Internal Medicine; Referring Provider Surgery; Visit Provider Internal Medicine
DX: E66.01 Morbid (severe) obesity due to excess calories (principal); E11.9 Type 2 diabetes mellitus without complications; I10 Essential (primary) hypertension; I25.10 Atherosclerotic heart disease of native coronary artery without angina pectoris; K21.9 Gastro-esophageal reflux disease without esophagitis; J45.20 Mild intermittent asthma, uncomplicated; E78.5 Hyperlipidemia, unspecified; D64.9 Anemia, unspecified
CPT/HCPCS: 36415; 71046; 76700; 76981; 80053; 80061; 82306; 82607; 82728; 82746; 83036; 83525; 83540; 84425; 84443; 84590; 84630; 85025; 86140; 93005

== ENCOUNTER → 2025-06-14 07:46 | Outpatient (BNV) | payer OTHER, SELFPAY | PROVIDERS: Absent Provider Surgery; PCP Internal Medicine; Referring Provider Surgery; Visit Provider Radiology Diagnostic Radiology | DX: R16.0 Hepatomegaly, not elsewhere classified (principal); E66.01 Morbid (severe) obesity due to excess calories | CPT/HCPCS: 71046; 76700 ==

== ENCOUNTER → 2025-06-14 11:07 | Outpatient (BNV) | payer OTHER, SELFPAY | PROVIDERS: Absent Provider Surgery; PCP Internal Medicine; Referring Provider Surgery; Visit Provider Internal Medicine Cardiovascular Disease | DX: E66.01 Morbid (severe) obesity due to excess calories (principal) | CPT/HCPCS: 93010 ==

== ENCOUNTER 2025-07-04 11:27 | Outpatient (AMB) | payer OTHER, SELFPAY ==
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
== END 2025-07-04 12:04 | disposition home or self-care (01) ==
LOC: HO.HBST 11:27
PROVIDERS: PCP Internal Medicine; Visit Provider Counselor Mental Health
DX: F43.9 Reaction to severe stress, unspecified (principal); F32.9 Major depressive disorder, single episode, unspecified; Z71.89 Other specified counseling
CPT/HCPCS: 90791

== ENCOUNTER 2025-07-18 09:00 | Outpatient (REF) | payer OTHER, SELFPAY | END 2025-07-18 09:01 | disposition home or self-care (01) | LOC: HO.LNP 09:00 | PROVIDERS: PCP Internal Medicine; Visit Provider Nurse Practitioner Family | DX: Z11.0 Encounter for screening for intestinal infectious diseases (principal) | CPT/HCPCS: 83013; 99211 ==

== ENCOUNTER 2025-07-18 09:00 | Outpatient (AMB) | payer OTHER, SELFPAY ==
--- NOTE | 2025-07-18 09:43 | AM.OFFVISNUR ---
Intake Visit Reasons: h pylori/re check Intake Note: Patient presents for collection of?H Pylori?breath test. Patient has been fasting for 1 hour (nothing to eat, drink, no chewing gum or smoking) has not taken any antacid medication for at least 2 weeks and has no allergies to artificial sweeteners.?? Allergies erythromycin base Allergy (Intermediate, Verified 06/04/25 09:26) Swelling levofloxacin (From LEVAQUIN) Allergy (Intermediate, Verified 06/04/25 09:26) RASH AND HIVES Penicillins (PENICILLINS) Allergy (Intermediate, Verified 06/04/25 09:26) Swelling metformin Adverse Reaction (Severe, Verified 06/04/25 09:26) contraindicated in myasthenia gravis dulaglutide (From Trulicity) Adverse Reaction (Intermediate, Verified 06/04/25 09:26) inadequate response Assessment & Plan Assessment & Plan (1) GERD (gastroesophageal reflux disease): Code(s): K21.9 - Gastro-esophageal reflux disease without esophagitis Category: Medical Qualifiers: Esophagitis presence: esophagitis presence not specified Qualified Code(s): K21.9 - Gastro-esophageal reflux disease without esophagitis Plan Patient presents for collection of?H Pylori?breath test. Patient has been fasting for 1 hour (nothing to eat, drink, no chewing gum or smoking) has not taken any antacid medication for at least 2 weeks and has no allergies to artificial sweeteners.???This test checks for an overgrowth of bacteria in your stomach. We all have bacteria but some may have more than others. It is treatable. if the test comes back negative there is nothing else to do. If the test result is positive we will treat you with 2 antibiotics and a medication to decrease the acid in your stomach (PPI) for 2 weeks. Two weeks after you have completed the treatment we will retest you to make sure the overgrowth has resolved. Patient Instructions: Process for specimen collection and reason for testing was explained to the patient. Specimen collection. Patient instructed to take a deep breath and then exhale into the blue bag, filling it up as much as possible. Patient instructed to drink a mixture of water and the artificial sweetener with a straw. A 15 minute wait period was observed. Patient instructed to take a deep breath and then exhale into the pink bag, filling it up as much as possible.?? Coding Level of Care Code Established Pt Est Pt Level 1 (66427) Patient Type Established Medical Decision Making Straight Forward Diagnoses Gastroesophageal reflux disease, unspecified whether esophagitis present K21.9 Esophagitis presence: esophagitis presence not specified
== END 2025-07-18 09:42 | disposition home or self-care (01) ==
LOC: HO.HGI 09:00
PROVIDERS: PCP Internal Medicine; Visit Provider Nurse Practitioner Family
DX: K21.9 Gastro-esophageal reflux disease without esophagitis (principal)

== ENCOUNTER 2025-07-25 09:12 | Outpatient (AMB) | payer OTHER, SELFPAY ==
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
== END 2025-07-25 10:00 | disposition home or self-care (01) ==
LOC: HO.HBST 09:12
PROVIDERS: PCP Internal Medicine; Visit Provider Counselor Mental Health
DX: F43.9 Reaction to severe stress, unspecified (principal); F32.9 Major depressive disorder, single episode, unspecified; Z71.89 Other specified counseling
CPT/HCPCS: 90837

== ENCOUNTER 2025-08-02 06:51 | Outpatient (REF) | payer OTHER, SELFPAY ==
[2025-08-02 07:12] LABS: MANUAL DIFF FLAG NO
[2025-08-02 07:42] LABS: Hematocrit 39.2 % (37.0-47.0); Hemoglobin 13.5 g/dl (12.0-16.0); Imm Gran Abs Auto 0.05 X10*3/uL (0.00-0.03); Imm Gran Pct Auto 0.4 % (0.0-0.4); Lymphocytes Absolute Auto 3.2 X10*3/uL (1.2-4.9); Mean Corpuscular HGB Conc 34.4 g/dl (31.0-35.0); Mean Corpuscular Hemoglobin 29.2 pg (27.0-33.0); Mean Corpuscular Volume 84.8 fL (80.0-98.0); NRBC Abs Auto 0.000 X10*3/uL (0.0-0.012); NRBC Pct Auto 0.0 /100WBC (0.0-0.2); Platelet Count 296 X10*3/uL (160-400); Red Blood Count 4.62 X10*6/uL (4.20-5.50); White Blood Count 12.6 X10*3/uL (4.8-10.8)
[2025-08-02 08:22] LABS: Appearance Urine Clear; Glucose Urine UA Negative (Negative); PH 5.5 (5.0-9.0); Specific Gravity - Urine 1.025 (1.005-1.025); UMIC TRIGGER UACC YES
[2025-08-02 08:50] LABS: Alanine Aminotransferase 32 U/L (0-31); Albumin Level 4.7 g/dL (3.5-5.0); Alkaline Phosphatase 74 U/L (39-117); Anion Gap 13 (12-20); Aspartate Amino Transferase 25 U/L (5-31); Blood Urea Nitrogen 8 mg/dL (9-16); Calcium 9.3 mg/dL (8.4-10.2); Carbon Dioxide 24 mmol/L (22-29); Chloride 108 mmol/L (96-108); Cholesterol 185 mg/dL (<200); Estimated Glomerular Filt Rate > 60; HDL Cholesterol 32 mg/dL (>40); Iron 54 mcg/dL (30-160); Percent Iron Saturation 21 % (15-50); Potassium 3.8 mmol/L (3.3-5.1); Sodium 141 mmol/L (135-145); Total Iron Binding Capacity 254 mcg/dL (228-428); Total Protein 7.9 g/dL (6.5-8.0); Triglycerides 143 mg/dL (<150); Unsaturated Iron Binding 200 ug/dL
[2025-08-02 08:57] LABS: HBS Num1 1.21 mIU/mL (0-7.99); HBc Num1 0.08 S/CO (0.00-0.79); HBsAGNum1 0.53 S/CO (0.00-0.99); Hepatitis A Antibody IgM 0.20 Index (0-0.79); Hepatitis B Surface Antigen Negative (Negative); ~HepC Num1 0.13 S/CO (0.00-0.79); ~Hepatitis A Antibody IgM Nonreactive (Nonreactive); ~Hepatitis B Surface Antibody NONREACTIVE (Nonreactive); ~Hepatitis C Antibody Nonreactive (Nonreactive)
[2025-08-02 09:05] LABS: Alanine Aminotransferase 28 U/L (0-31); Albumin Level 4.8 g/dL (3.5-5.0); Alkaline Phosphatase 75 U/L (39-117); Anion Gap 12 (12-20); Aspartate Amino Transferase 26 U/L (5-31); Blood Urea Nitrogen 8 mg/dL (9-16); Calcium 9.3 mg/dL (8.4-10.2); Carbon Dioxide 24 mmol/L (22-29); Chloride 109 mmol/L (96-108); Estimated Glomerular Filt Rate > 60; Potassium 3.8 mmol/L (3.3-5.1); Sodium 141 mmol/L (135-145); Total Protein 8.0 g/dL (6.5-8.0)
[2025-08-02 09:35] LABS: Microalbum/Creatinine Ratio Ur 8.6 ug/mg cr (<30)
== END 2025-08-02 06:52 | disposition home or self-care (01) ==
LOC: HO.LAB 06:51
PROVIDERS: Absent Provider Nurse Practitioner Family; PCP Internal Medicine; Visit Provider Internal Medicine
DX: Z11.59 Encounter for screening for other viral diseases (principal); E78.5 Hyperlipidemia, unspecified; D64.9 Anemia, unspecified; R80.9 Proteinuria, unspecified; E55.9 Vitamin D deficiency, unspecified; R74.01 Elevation of levels of liver transaminase levels; G70.00 Myasthenia gravis without (acute) exacerbation
CPT/HCPCS: 36415; 80053; 80061; 81001; 81003; 82043; 82306; 82570; 83540; 85025; 86704; 86706; 86709; 86803; 87340

== ENCOUNTER 2025-08-23 09:37 | Outpatient (AMB) | payer OTHER, SELFPAY ==
--- NOTE | 2025-08-23 09:48 | A.OFFPC_ITS ---
Vital Signs 08/23/25 09:49 Height 5 ft 5 in Weight 283 lb 8 oz BMI 47.2 BP 128/78 Blood Pressure Location Lt brachial Position Sitting Pulse 102 H Pulse Source Pulse Oximeter Temp Source Temporal Artery Scan Pulse Oximetry (%) 96 Oxygen Delivery Method Room Air Intake Visit Reasons: dm,mg Intake Note: Patient is here to follow up on DM. Chemistry Department Chair Required: Yes Chemistry Department Chair Language: Citizen Of [place] Information Interpreted: non-clinical & clinical Superintendent Horticulture: Not Required per policy Accompanied by: Self / Same As Patient Allergies erythromycin base Allergy (Intermediate, Verified 08/23/25 10:15) Swelling levofloxacin (From LEVAQUIN) Allergy (Intermediate, Verified 08/23/25 10:15) RASH AND HIVES Penicillins (PENICILLINS) Allergy (Intermediate, Verified 08/23/25 10:15) Swelling metformin Adverse Reaction (Severe, Verified 08/23/25 10:15) contraindicated in myasthenia gravis dulaglutide (From Trulicity) Adverse Reaction (Intermediate, Verified 08/23/25 10:15) inadequate response Medication List - Last Reconciled 08/23/25 by Nemo Ortiz MD albuterol sulfate 2.5 mg (3 mL) inhalation QID PRN albuterol sulfate 90 mcg/actuation 2 inhalations inhalation QID PRN atorvastatin 20 mg PO BEDTIME 90 days azathioprine 50 mg PO DAILY 30 days bismuth subsalicylate 524 mg (2 x 262 mg) PO QID 14 days blood sugar diagnostic (FreeStyle Lite Strips) As directed three times a day blood-glucose meter (FreeStyle Lite Meter kit) As directed 3x/day budesonide-formoterol 160-4.5 mcg/actuation (Symbicort) 2 inhalations inhalation BID cetirizine (Zyrtec) 10 mg PO DAILY 90 days cholecalciferol (vitamin D3) 50 mcg (2 x 25 mcg (1,000 unit)) PO DAILY 30 days cholecalciferol (vitamin D3) 125 mcg PO DAILY diclofenac potassium 50 mg PO BID PRN 30 days efgartigimod jorgito-fcab (Vyvgart) 1,200 mg (60 mL) IV QWEEK 4 weeks empagliflozin (Jardiance) 25 mg PO DAILY famotidine 40 mg PO BEDTIME ferrous sulfate (Iron (ferrous sulfate)) 325 mg PO DAILY fluticasone propionate 50 mcg/actuation (Flonase Allergy Relief) 1 spray intranasal BID 30 days ketorolac 10 mg PO Q8H PRN 5 days lancets (FreeStyle Lancets) Use 1 lancet three times a day lisinopril 10 mg PO DAILY loperamide 4 mg orally PRN; 4 mg, followed by 2 mg after each loose stool; maximum: 16 mg/day mecobalamin (vitamin B12) 1,000 mcg sublingual DAILY metronidazole 500 mg PO QID nebulizers As directed pantoprazole 40 mg PO BID pen needle, diabetic (BD Ultra-Fine Mini Pen Needle) As directed pen needle, diabetic (Comfort EZ Pen [place]) As directed polyethylene glycol 3350 (Miralax) 238 grams PO ONCE pyridostigmine bromide 30 - 60 mg (0.5 - 1 x 60 mg) PO TID 30 days pyridostigmine bromide ER 180 mg PO QID semaglutide (Ozempic) 1 mg (0.75 mL) subcut QWEEK 4 weeks Shower Chair shower chair with arms. To prevent falls d/t weakness d/t myasthenia gravis. sucralfate 1 g PO BID tetracycline 500 mg PO QID 14 days Tobacco use date assessed: 08/23/25 Dental Screening Dental Screen Date: 08/23/25 Did you have a dental visit in the last 12 months?: No Did you have a dental problem in the last 6 months where you did not have access to dental care?: No Was dental information given to patient?: No HPI HPI Comments History of Present Illness Details The patient is a 34-year-old female presenting for follow-up of her chronic conditions, including diabetes mellitus, hypertension, hyperlipidemia, and myasthenia gravis. She is also morbidly obese with a BMI of 47.2 and once the 2nd opinion for another weight management clinic. Diabetes mellitus management includes medication, with recent A1c levels at 7.2, indicating suboptimal control. Medication adherence issues are noted, parti cularly with atorvastatin for hyperlipidemia, which she sometimes takes at 40 mg instead of the prescribed 20 mg. Hypertension is well-controlled with a blood pressure reading of 128/78 mmHg, managed with lisinopril 10 mg. The patient has myasthenia gravis, managed with infusions and azathioprine, with no other neurological conditions reported. Asthma is managed with Symbicort, and cetirizine is used for allergies. Depression is in remission and well-controlled. [facility] Medical History Morbid obesity Migraines Hypertension Myasthenia gravis Moderate recurrent major depression Chronic cough MYNOR (obstructive sleep apnea) COVID-19 vaccine series completed Chronic diarrhea Obesity due to excess calories Myasthenia gravis Asthma Sleep apnea GERD (gastroesophageal reflux disease) CAD (coronary artery disease) Lower back pain Surgical History H/O section History of esophagogastroduodenoscopy (EGD) S/P thymectomy History of tonsillectomy and adenoidectomy History of cholecystectomy Family History Father Hypertension Diabetes Mother Diabetes Hypertension Maternal Grandfather Diabetes Hypertension Bone cancer Maternal Aunt Breast cancer Maternal Grandmother Diabetes Hypertension CVD (cardiovascular disease) Other Mental health disorder Social History Housing: Apartment Are you a primary outdoor emergency care technician to a significant other at home: No Do you presently have visiting nurse or other home services: Yes Alcohol intake: never Patient Tobacco Use Status: Never used Tobacco e-Cigarette/Vaping Use: Never Used Second Hand Smoke Exposure: No service: No Current occupational status: unemployed Current occupational exposures/hazards: No Cognitive needs: Yes (walker) Hearing needs: No Vision needs: No Female Reproductive History Menstrual Age of Menarche: 11 Questionnaire Thrive Questionnaire Date Thrive assessed: 12/07/24 I am a: Patient What is your living situation today?: I have a steady place to live Within the past 12 months, did the food you bought not last and you didn't have the money to get more?: Often true Within the past 12 months, did you worry whether your food would run out before you got money to buy more?: Often true Do you have trouble paying for medicines?: No Do you have trouble getting transportation to medical appointments?: Yes Do you have trouble paying your heating and electricity bill?: No Do you have trouble taking care of your child, family member or friend?: No Do you have trouble with day-to-day activities such as bathing, preparing meals, shopping, managing finances, etc.?: No Are you currently unemployed and looking for a job?: No Are you interested in more education?: No Please select the resources that you would like help with: None Currently or been in a relationship where the following occur: No concerns reported THRIVE Score: 3 ALLYSSA-7 AMB Questionnaire ALLYSSA-7 Date ALLYSSA - 7 assessed: 12/07/24 Source: Developed by Drs. Devon Hamilton, Joi Bingham, Edgardo Martinez and colleagues, with an educational elver from [employer]. Review of Systems Const All systems reviewed & are unremarkable except as noted in HPI and below Card Denies chest pain at rest, Denies chest pain with activity, Denies edema, Denies irregular heart rhythm, Denies claudication, Denies dyspnea, Denies dyspnea on exertion, Denies orthopnea, Denies paroxysmal nocturnal dyspnea and Denies slow heart rate Resp Denies cough, Denies dyspnea and Denies dyspnea on exertion GI Denies abdominal pain, Denies change in bowel habits, Denies excessive flatus, Denies nausea and Denies vomiting Physical exam (Primary Care) Vital Signs: Last Vital Signs Pulse 102 H 08/23/25 09:49 BP 128/78 08/23/25 09:49 Pulse Ox 96 08/23/25 09:49 Oxygen Delivery Method Room Air 08/23/25 09:49 BMI result Body Mass Index 47.2 BMI Assessment/Plan discussion: High BMI High, discussed plan: lifestyle, weight reduction, dietary and physical activity Tobacco/Smoking Status: Tobacco use Status Tobacco use date assessed 08/23/25 08/23/25 09:50 Patient Tobacco Use Status Never used Tobacco 08/23/25 09:50 e-Cigarette/Vaping Use Never Used 08/23/25 09:50 Thrive Assessment: Date of Thrive Assessment Date Thrive assessed 12/07/24 08/23/25 09:50 Currently or been in a relationship where the following occur: No concerns reported Resp Effort & Inspection: normal respiratory effort Auscultation: clear to auscultation bilaterally Cardio Jugular venous distension: no JVD Rate: regular rate Rhythm: regular rhythm Heart sounds: S1 normal heart sound present and S2 normal heart sound present Extrem General: Yes full ROM Results AMB Hemoglobin A1c AMB Hemoglobin A1c 7.2 % Last Edit by Kelsea Chang MA on 08/23/25 10:07 Results Reviewed Results Reviewed: Laboratory Last Values Hgb A1c (Clinic) 7.2 % (4.0-6.0) H 08/23/25 09:46 Coding Level of Care Code Est Pt Level 4 (95371) Complex EM visit Add On G2211 Diagnoses MDD (major depressive disorder), recurrent episode, mild F33.0 Essential hypertension I10 Hyperlipidemia LDL goal <70 E78.5 Type 2 diabetes mellitus without complication, without long-term current use of insulin E11.9 Diabetes mellitus type: type 2 Diabetes mellitus jail insulin use: without jail use Diabetes mellitus complication status: without complication Morbid obesity with BMI of 45.0-49.9, adult E66.01; Z68.42 Myasthenia gravis, acetylcholine receptor antibody positive G70.00 Time Spent (min) 24 Assessment & Plan Assessment & Plan (1) MDD (major depressive disorder), recurrent episode, mild: Code(s): F33.0 - Major depressive disorder, recurrent, mild Category: Medical (2) Essential hypertension: Code(s): I10 - Essential (primary) hypertension Category: Medical (3) Hyperlipidemia LDL goal <70: Code(s): E78.5 - Hyperlipidemia, unspecified Category: Medical (4) Diabetes mellitus: Code(s): E11.9 - Type 2 diabetes mellitus without complications Category: Medical Qualifiers: Diabetes mellitus type: type 2 Diabetes mellitus jail insulin use: without digital asset specialist use Diabetes mellitus complication status: without complication Qualified Code(s): E11.9 - Type 2 diabetes mellitus without complications (5) Morbid obesity with BMI of 45.0-49.9, adult: Code(s): E66.01 - Morbid (severe) obesity due to excess calories; Z68.42 - Body mass index [BMI] 45.0-49.9, adult Category: Medical (6) Myasthenia gravis, acetylcholine receptor antibody positive: Code(s): G70.00 - Myasthenia gravis without (acute) exacerbation Category: Medical Plan Plan Patient was informed and verbally consented to the use of an ambient scribe for clinic note documentation during this visit. 1. Diabetes Mellitus The patient's diabetes mellitus is managed with medication, but the A1c level of 7.2 indicates suboptimal control. The plan includes considering alternative medications such as Mounjaro, pending insurance approval, to improve glycemic control. 2. Hypertension Hypertension is well-controlled with lisinopril 10 mg, and the current blood pressure reading is 128/78 mmHg. 3. Hyperlipidemia The patient is prescribed atorvastatin for hyperlipidemia, but there are issues with medication adherence, as she sometimes takes 40 mg instead of the prescribed 20 mg. 4. Myasthenia Gravis Myasthenia gravis is managed with azathioprine and regular infusions. 5. Morbid Obesity Refer to weight management for second opinion. 6. Depression Depression is in remission and does not currently require active intervention. Orders: Orders AMB Hemoglobin A1c Today Nemo Ortiz MD E11.9 - Type 2 diabetes mellitus without complications, Z13.9 - Encounter for screening, unspecified Vitamin D 25-OH Total 4 Months Nemo Ortiz MD E55.9 - Vitamin D deficiency, unspecified Complete Blood Count Auto Diff 4 Months Nemo Ortiz MD D64.9 - Anemia, unspecified Lipid Panel 4 Months Nemo Ortiz MD E78.5 - Hyperlipidemia, unspecified Vitamin B12 and Folate 4 Months Nemo Ortiz MD E53.8 - Deficiency of other specified B group vitamins Microalbumin, Random (w Creat) 4 Months Nemo Ortiz MD R80.9 - Proteinuria, unspecified IRON PROFILE 4 Months Nemo Ortiz MD D64.9 - Anemia, unspecified Comprehensive [place]. Panel Fast 4 Months Nemo Ortiz MD I10 - Essential ( primary) hypertension Referrals Medical Weight Management Referral Nemo Ortiz MD E66.01 - Morbid (severe) obesity due to excess calories, Z68.42 - Body mass index [BMI] 45.0- 49.9, adult Cardiology Referral Nemo Ortiz MD I25.10 - Atherosclerotic heart disease of [place] coronary artery without angina pectoris Medications: New tirzepatide (Mounjaro) for 4 weeks 2.5 mg (0.5 mL) subcut QWEEK 2 mL 0RF 4 weeks Nemo Ortiz MD E11.9 - Type 2 diabetes mellitus without complications atorvastatin (Lipitor) 40 mg PO BEDTIME 90 tabs 1RF 90 days Nemo Ortiz MD Discontinued immun glob G(IgG)-gly-IgA ov50 10 % (Gammagard Liquid) Discontinued Reason: Patient Completed Course IVIG Gammagard 10% at 50gm qd x's 5 days every 3 weeks w/ pre-tx w/ benadryl and toradaol- to prevent IVIG r/t headache. Toradol order: 30 mg (2ml) IV 15 minutes prior to IVIG infusion, and then q 6 hrs prn (NTE 120mg per 24 hrs) intravenously every 6 to 8 hours PRN; Benadryl order: 50mg IV Push x's 1 50 grams 3RF 3 weeks NAYAN Chacon G70.00 - Myasthenia gravis without (acute) exacerbation atorvastatin Discontinued Reason: Patient Completed Course 20 mg PO BEDTIME 90 days 90 tabs 1RF E78.5 - Hyperlipidemia, unspecified semaglutide (Ozempic) Discontinued Reason: Patient Completed Course 1 mg (0.75 mL) subcut QWEEK 4 weeks 3 mL 0RF E11.9 - Type 2 diabetes mellitus without complications
[2025-08-23 09:49] VITALS: BP 128/78; PULSE 102; O2SAT 96; BMI 47.2
== END 2025-08-23 10:28 | disposition home or self-care (01) ==
LOC: HO.HMCH 09:38
PROVIDERS: PCP Internal Medicine; Visit Provider Internal Medicine
DX: E11.69 Type 2 diabetes mellitus with other specified complication (principal); E66.01 Morbid (severe) obesity due to excess calories; Z68.42 Body mass index [BMI] 45.0-49.9, adult; G70.00 Myasthenia gravis without (acute) exacerbation; F33.0 Major depressive disorder, recurrent, mild; I10 Essential (primary) hypertension; E78.5 Hyperlipidemia, unspecified

== ENCOUNTER → 2025-08-23 09:37 | Outpatient (BNVA) | payer OTHER, SELFPAY | PROVIDERS: PCP Internal Medicine; Visit Provider Internal Medicine | DX: E11.9 Type 2 diabetes mellitus without complications (principal); I10 Essential (primary) hypertension; E78.5 Hyperlipidemia, unspecified; E66.01 Morbid (severe) obesity due to excess calories; G70.00 Myasthenia gravis without (acute) exacerbation; J45.909 Unspecified asthma, uncomplicated; F33.0 Major depressive disorder, recurrent, mild; E55.9 Vitamin D deficiency, unspecified; D64.9 Anemia, unspecified; E53.8 Deficiency of other specified B group vitamins; R80.9 Proteinuria, unspecified; I25.10 Atherosclerotic heart disease of native coronary artery without angina pectoris; Z68.42 Body mass index [BMI] 45.0-49.9, adult; Z79.899 Other long term (current) drug therapy | CPT/HCPCS: 83036; 99212 ==

== ENCOUNTER 2025-08-23 14:13 | Outpatient (AMB) | payer OTHER, SELFPAY ==
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
== END 2025-08-23 15:24 | disposition home or self-care (01) ==
LOC: HO.HBST 14:13
PROVIDERS: PCP Internal Medicine; Visit Provider Counselor Mental Health
DX: F32.0 Major depressive disorder, single episode, mild (principal); F43.9 Reaction to severe stress, unspecified; Z71.89 Other specified counseling
CPT/HCPCS: 90837

== ENCOUNTER 2025-09-06 10:09 | Outpatient (AMB) | payer OTHER, SELFPAY ==
[2025-09-06 10:13] VITALS: BP 120/60; PULSE 100; O2SAT 96; BMI 47.1
--- NOTE | 2025-09-06 10:13 | MHC.OFFVIS ---
Vital Signs 09/06/25 10:13 Height 5 ft 5 in Weight 283 lb BMI 47.1 BP 120/60 Blood Pressure Location Rt brachial Position Sitting Pulse 100 Pulse Source Pulse Oximeter Pulse Oximetry (%) 96 Oxygen Delivery Method Room Air Intake Visit Reasons: Follow up Radio Commentator Required: No Accompanied by: Self / Same As Patient Allergies erythromycin base Allergy (Intermediate, Verified 08/23/25 10:15) Swelling levofloxacin (From LEVAQUIN) Allergy (Intermediate, Verified 08/23/25 10:15) RASH AND HIVES Penicillins (PENICILLINS) Allergy (Intermediate, Verified 08/23/25 10:15) Swelling metformin Adverse Reaction (Severe, Verified 08/23/25 10:15) contraindicated in myasthenia gravis dulaglutide (From Trulicity) Adverse Reaction (Intermediate, Verified 08/23/25 10:15) inadequate response Medication List - Last Reconciled 09/06/25 by NAYAN Chacon albuterol sulfate 2.5 mg (3 mL) inhalation QID PRN albuterol sulfate 90 mcg/actuation 2 inhalations inhalation QID PRN atorvastatin (Lipitor) 40 mg PO BEDTIME 90 days azathioprine 50 mg PO DAILY 30 days bismuth subsalicylate 524 mg (2 x 262 mg) PO QID 14 days blood sugar diagnostic (FreeStyle Lite Strips) As directed three times a day blood-glucose meter (FreeStyle Lite Meter kit) As directed 3x/day budesonide-formoterol 160-4.5 mcg/actuation (Symbicort) 2 inhalations inhalation BID cetirizine (Zyrtec) 10 mg PO DAILY 90 days cholecalciferol (vitamin D3) 50 mcg (2 x 25 mcg (1,000 unit)) PO DAILY 30 days cholecalciferol (vitamin D3) 125 mcg PO DAILY diclofenac potassium 50 mg PO BID PRN 30 days efgartigimod jorgito-fcab (Vyvgart) 1,200 mg (60 mL) IV QWEEK 4 weeks empagliflozin (Jardiance) 25 mg PO DAILY famotidine 40 mg PO BEDTIME ferrous sulfate (Iron (ferrous sulfate)) 325 mg PO DAILY fluticasone propionate 50 mcg/actuation (Flonase Allergy Relief) 1 spray intranasal BID 30 days ketorolac 10 mg PO Q8H PRN 5 days lancets (FreeStyle Lancets) Use 1 lancet three times a day lisinopril 10 mg PO DAILY loperamide 4 mg orally PRN; 4 mg, followed by 2 mg after each loose stool; maximum: 16 mg/day mecobalamin (vitamin B12) 1,000 mcg sublingual DAILY metronidazole 500 mg PO QID nebulizers As directed pantoprazole 40 mg PO BID pen needle, diabetic (BD Ultra-Fine Mini Pen Needle) As directed pen needle, diabetic (Comfort EZ Pen [place]) As directed pioglitazone 15 mg PO DAILY 90 days polyethylene glycol 3350 (Miralax) 238 grams PO ONCE pyridostigmine bromide 30 - 60 mg (0.5 - 1 x 60 mg) PO TID 30 days pyridostigmine bromide ER 360 mg (2 x 180 mg) PO QID 30 days Shower Chair shower chair with arms. To prevent falls d/t weakness d/t myasthenia gravis. sucralfate 1 g PO BID tetracycline 500 mg PO QID 14 days tirzepatide (Mounjaro) 2.5 mg (0.5 mL) subcut QWEEK 4 weeks HPI Comments Details: 33-yr-old female presents for f/u visit of MG and migraine. Patient reports she is overall feeling better since her last visit. She has started on Vyvgart to augment pyridostigmine and azathioprine treatment for management of progressing myasthenia gravis. She reports that the addition of Vyvgart has been very helpful, with good control of all of her myasthenia gravis symptoms until 1 week before the next Vyvgart cycle is due. During that last week before the next Vyvgart infusion is due, she will again began experiencing difficulty with talking, chewing, swallowing, and becoming more easily fatigued. Denies any adverse effects from the Vyvgart, other than mild nausea or GI upset. She is tolerating this much better than the IVIG. Also, since starting Vyvgart, she rarely has a migraine. When she does have breakthrough migraine, Ubrelvy is effective. Otherwise, she has been working with her PCP on optimizing her diabetic control. She states Wegovy was very helpful, but it was changed to Mounjaro due to insurance requirements. Unfortunately, Mounjaro has caused facial itching and she is following up with her PCP to determine next steps. 08/02/2025, CBC and CMP within normal limits, other than WBC 12.6 (stable from 06/14/2025 12.7) [facility] Medical History Morbid obesity Migraines Hypertension Myasthenia gravis Moderate recurrent major depression Chronic cough MYNOR (obstructive sleep apnea) COVID-19 vaccine series completed Chronic diarrhea Obesity due to excess calories Myasthenia gravis Asthma Sleep apnea GERD (gastroesophageal reflux disease) CAD (coronary artery disease) Lower back pain Surgical History H/O section History of esophagogastroduodenoscopy (EGD) S/P thymectomy History of tonsillectomy and adenoidectomy History of cholecystectomy Family History Father Hypertension Diabetes Mother Diabetes Hypertension Maternal Grandfather Diabetes Hypertension Bone cancer Maternal Aunt Breast cancer Maternal Grandmother Diabetes Hypertension CVD (cardiovascular disease) Other Mental health disorder Social History Housing: Apartment Are you a primary medical care evaluation specialist to a significant other at home: No Do you presently have visiting nurse or other home services: Yes Alcohol intake: never Patient Tobacco Use Status: Never used Tobacco e-Cigarette/Vaping Use: Never Used Second Hand Smoke Exposure: No service: No Current occupational status: unemployed Current occupational exposures/hazards: No Cognitive needs: Yes (walker) Hearing needs: No Vision needs: No Female Reproductive History Menstrual Age of Menarche: 11 Physical Exam Vital Signs: Last Vital Signs Pulse 100 09/06/25 10:13 BP 120/60 09/06/25 10:13 Pulse Ox 96 09/06/25 10:13 Oxygen Delivery Method Room Air 09/06/25 10:13 BMI result Body Mass Index 47.1 Const General: cooperative Orientation/consciousness: patient oriented x3 Resp Effort & Inspection: normal respiratory effort and able to speak in complete sentences Neuro General: patient oriented x3 Cranial nerves: Yes CN's II-XII intact bilaterally Cognition (Neuro): normal cognition Psych Appearance: grossly normal Mental Status: mental status grossly normal Speech and movement: Normal speech and movement present Affect: normal affect Attitude: cooperative Assessment & Plan Assessment & Plan (1) Myasthenia gravis, acetylcholine receptor antibody positive: Code(s): G70.00 - Myasthenia gravis without (acute) exacerbation Category: Medical (2) Migraine without aura: Code(s): G43.009 - Migraine without aura, not intractable, without status migrainosus Category: Medical Qualifiers: Status migrainosus presence: without status migrainosus Intractability: not intractable Qualified Code(s): G43.009 - Migraine without aura, not intractable, without status migrainosus Plan For ACHR-AB positive MG with systemic symptoms : Continue IVIG tx: every 4 weeks w/ pre-tx w/ benadryl and toradaol- to prevent IVIG r/t headache. Order placed for Ketorolac 10mg tab po q 8 hrs, may use post-IVIG infusion prn LAUREN. If not available, may use Diclofena 6omg po bid prn instead (only during IVIG infusion week). Continue Mestinon ER 360 mg 4 times per day Continue Mestinon IR 60mg BID-TID prn. Monitor for loose stools Continue Vygart cycle: 1,200mg IV q week x's 4, then 3 weeks off, then resume cycle- as patient has had good clinical effect from use. vaccination with live vaccines is not recommended during treatment with Vyvgart Continue Azathioprine 50mg qam for now, as patient continues to have breakthrough symptoms towards the end of the Vyvgart cycle Check CBC/CMP today and then q month. Previous trials: On Cellcept pt still has breakthrough MG s/s. IVIG Gammagard 10% at 50gm qd x's 5 days- recurrent cycles ineffective, and poorly tolerated- caused headache. Contraindications: Chronic corticosteroid tx d/t diabetes. For acute migraine tx: Continue Ubrelvy 100mg prn. May take w/ Tylenol. Acute migraine tx contraindications: all Triptans and DHE d/t HLD, CAD, ? For migraine prevention: Continue Nifedipine ER- used for CV dz. f/u in 3-6 months or sooner prn. Orders: Orders Complete Blood Count Auto Diff Today G70.00 - Myasthenia gravis without (acute) exacerbation Comprehensive [place]. Panel Fast Today G70.00 - Myasthenia gravis without (acute) exacerbation Complete Blood Count Auto Diff . G70.00 - Myasthenia gravis without (acute) exacerbation Comprehensive [place]. Panel Fast . G70.00 - Myasthenia gravis without (acute) exacerbation Medications: Discontinued tetracycline Take one tablet four times daily for 14 days Discontinued Reason: Patient Completed Course 500 mg PO QID 14 days 56 caps 0RF Coding Level of Care Code Est Pt Level 4 (97558) Diagnoses Myasthenia gravis, acetylcholine receptor antibody positive G70.00 Migraine without aura and without status migrainosus, not intractable G43.009 Status migrainosus presence: without status migrainosus Intractability: not intractable
== END 2025-09-06 10:55 | disposition home or self-care (01) ==
LOC: HO.HSMS 10:10
PROVIDERS: PCP Internal Medicine; Visit Provider Nurse Practitioner Family
DX: G70.00 Myasthenia gravis without (acute) exacerbation (principal); G43.009 Migraine without aura, not intractable, without status migrainosus
CPT/HCPCS: 99214

== ENCOUNTER → 2025-09-06 10:09 | Outpatient (BNVA) | payer OTHER, SELFPAY | PROVIDERS: PCP Internal Medicine; Visit Provider Nurse Practitioner Family | DX: G43.009 Migraine without aura, not intractable, without status migrainosus (principal); G70.00 Myasthenia gravis without (acute) exacerbation | CPT/HCPCS: 99212 ==

== ENCOUNTER 2025-10-01 15:25 | Outpatient (AMB) | payer OTHER, SELFPAY ==
--- NOTE | 2025-10-01 15:30 | HO.NEPHOV ---
Vital Signs 10/01/25 15:37 Height 5 ft 5 in Weight 282 lb 8 oz BMI 47.0 BP 100/60 Blood Pressure Location Lt brachial Position Sitting Pulse 110 H Pulse Source Pulse Oximeter Pulse Oximetry (%) 97 Oxygen Delivery Method Room Air Intake Visit Reasons: F/U-Conf Stringing Machine Tender Required: Yes Stringing Machine Tender Language: Layout Designer Services: Stringing Machine Tender Present Stringing Machine Tender Name: Wolf [id number] Information Interpreted: clinical only Accompanied by: Son Allergies erythromycin base Allergy (Intermediate, Verified 10/01/25 15:36) Swelling levofloxacin (From LEVAQUIN) Allergy (Intermediate, Verified 10/01/25 15:36) RASH AND HIVES Penicillins (PENICILLINS) Allergy (Intermediate, Verified 10/01/25 15:36) Swelling metformin Adverse Reaction (Severe, Verified 10/01/25 15:36) contraindicated in myasthenia gravis dulaglutide (From Trulicity) Adverse Reaction (Intermediate, Verified 10/01/25 15:36) inadequate response HPI Comments Details: [place] interpretor [id number] Wolf 34-year-old lady with past medical history of hypertension, diabetes, morbid obesity, myasthenia gravis is here for followup of microalbuminuria. No new complaints weight 282lbs. [facility] Medical History Morbid obesity Migraines Hypertension Myasthenia gravis Moderate recurrent major depression Chronic cough MYNOR (obstructive sleep apnea) COVID-19 vaccine series completed Chronic diarrhea Obesity due to excess calories Myasthenia gravis Asthma Sleep apnea GERD (gastroesophageal reflux disease) CAD (coronary artery disease) Lower back pain Surgical History H/O section History of esophagogastroduodenoscopy (EGD) S/P thymectomy History of tonsillectomy and adenoidectomy History of cholecystectomy Family History Father Hypertension Diabetes Mother Diabetes Hypertension Maternal Grandfather Diabetes Hypertension Bone cancer Maternal Aunt Breast cancer Maternal Grandmother Diabetes Hypertension CVD (cardiovascular disease) Other Mental health disorder Social History Housing: Apartment Are you a primary care specialist to a significant other at home: No Do you presently have visiting nurse or other home services: Yes Alcohol intake: never Patient Tobacco Use Status: Never used Tobacco e-Cigarette/Vaping Use: Never Used Second Hand Smoke Exposure: No service: No Current occupational status: unemployed Current occupational exposures/hazards: No Cognitive needs: Yes (walker) Hearing needs: No Vision needs: No Female Reproductive History Menstrual Age of Menarche: 11 Review of Systems Const Details: Const : no body aches, no chills, no excessive sweating and no fatigue Eyes: no blurry vision and no change in vision ENT: no bleeding gums and no change in voice, no dizziness Card: no chest pain, no shortness of breath, no orthopnea, no PND Resp: no cough, no excessive phlegm production, no SOB GI: no abdominal pain and no nausea, no vomiting : no hematuria, no urinary frequency and no difficulty voiding Musc: no abnormal gait, no bone pain Neuro: no abnormal movements, no weakness, no dizziness, no abnormal gait and no behavioral changes Psych: no behavioral changes and no change in appetite Endo: no change in body appearance, no cold intolerance, no excessive sweating and no fatigue Physical Exam Vital Signs: Last Vital Signs Pulse 110 H 10/01/25 15:37 BP 100/60 10/01/25 15:37 Pulse Ox 97 10/01/25 15:37 Oxygen Delivery Method Room Air 10/01/25 15:37 BMI result Body Mass Index 47.0 General: not in any acute distress, comfortable, sitting on the chair Nutritional Appearance: well nourished and morbidly obese Eyes: normal position, no icterus Neck: No lymphadenopathy, no thyromegaly Resp: bilateral air entry equal, no added sounds present Cardio: normal S1, S2 heard, no murmur heard, no edema GI: soft, nontender, no guarding, no hepatosplenomegaly : bladder normal to inspection, bladder normal to palpation, no renal angle tenderness Skin: no rashes or lesions noted and elasticity normal Neuro: oriented to person, oriented to place, oriented to time and moves all extremities Results Reviewed Nephrology Results: Hgb, (12.0-16.0) 14.4 g/dl 09/17/25 WBC, (4.8-10.8) 11.3 X10*3/uL H 09/17/25 Plt Count, (160-400) 274 X10*3/uL 09/17/25 Sodium, (135-145) 137 mmol/L 09/17/25 Potassium, (3.3-5.1) 3.9 mmol/L 09/17/25 Chloride, (96-108) 107 mmol/L 09/17/25 Carbon Dioxide, (22-29) 22 mmol/L 09/17/25 BUN, (9-16) 7 mg/dL L 09/17/25 Creatinine, (0.5-1.4) 0.64 mg/dL 09/17/25 Calcium, (8.4-10.2) 9.3 mg/dL 09/17/25 Urine Protein, (Neg-Trace) Negative mg/dL 08/02/25 Urine Creatinine 277.80 mg/dL 08/02/25 Assessment & Plan Assessment & Plan (1) Diabetes mellitus: Code(s): E11.9 - Type 2 diabetes mellitus without complications Category: Medical Qualifiers: Diabetes mellitus type: type 2 Diabetes mellitus skilled nursing insulin use: without skilled nursing use Diabetes mellitus complication status: without complication Qualified Code(s): E11.9 - Type 2 diabetes mellitus without complications (2) Morbid obesity: Code(s): E66.01 - Morbid (severe) obesity due to excess calories Category: Medical (3) Microalbuminuria: Code(s): R80.9 - Proteinuria, unspecified Category: Medical Plan Hypertension: Possibly related to her obesity and NSAID use but given previously she had hypokalemia we will rule like to rule out hyperaldosteronism. Renin 2.25, aldosterone renin ratio 0.9, aldosterone adequately suppressed Explained her the importance of losing weight to control blood pressures, salt restricted diet. She possibly might need a sleep study to rule out sleep apnea if the blood pressures become uncontrolled Chronic kidney disease stage 2 A2: Given her microalbuminuria with UAC are 41.6 decreased to 8.6 after starting the patient on lisinopril 10 mg. Patient also has morbid obesity, uncontrolled diabetes mellitus, she would need to lose significant weight in order to prevent renal disease. Patient was on Ozempic but later insurance coverage went off so she was switched to Mounjaro with which she had significant side effects so she stopped it. Will resend a prescription for ozempic, patient needs to followup with primary care for further prescriptions. Explained her the importance of good blood sugar control for a long-term prognosis. Continue Jardiance to assist with renal protection and better sugar control. Advised her to stop Jardiace if there is UTI or foot ulcers and also explained her the possible side effects. We will see her back in the clinic in 6 months with repeat labs Orders: Orders Basic Metabolic Panel 6 Months E11.9 - Type 2 diabetes mellitus without complications, E66.01 - Morbid (severe) obesity due to excess calories, R80.9 - Proteinuria, unspecified Microalbumin, Random (w Creat) 6 Months E11.9 - Type 2 diabetes mellitus without complications, E66.01 - Morbid (severe) obesity due to excess calories, R80.9 - Proteinuria, unspecified UA and rflx microscopic 6 Months E11.9 - Type 2 diabetes mellitus without complications, E66.01 - Morbid (severe) obesity due to excess calories, R80.9 - Proteinuria, unspecified Total Protein Urine Random 6 Months E11.9 - Type 2 diabetes mellitus without complications, E66.01 - Morbid (severe) obesity due to excess calories, R80.9 - Proteinuria, unspecified Medications: New semaglutide (Ozempic) 2 mg (0.75 mL) subcut QWEEK 9 mL 2RF 12 weeks Coding Level of Care Code Est Pt Level 4 (61675) Diagnoses Type 2 diabetes mellitus without complication, without long-term current use of insulin E11.9 Diabetes mellitus type: type 2 Diabetes mellitus skilled nursing insulin use: without skilled nursing use Diabetes mellitus complication status: without complication Morbid obesity E66.01 Microalbuminuria R80.9
[2025-10-01 15:37] VITALS: BP 100/60; PULSE 110; O2SAT 97; BMI 47.0
== END 2025-10-01 16:03 | disposition home or self-care (01) ==
LOC: HO.HKAS 15:26
PROVIDERS: PCP Internal Medicine; Visit Provider Internal Medicine Critical Care Medicine
DX: E11.9 Type 2 diabetes mellitus without complications (principal); E66.01 Morbid (severe) obesity due to excess calories; R80.9 Proteinuria, unspecified
CPT/HCPCS: 99214

== ENCOUNTER → 2025-10-01 15:25 | Outpatient (BNVA) | payer OTHER, SELFPAY | PROVIDERS: PCP Internal Medicine; Visit Provider Internal Medicine Critical Care Medicine | DX: E11.9 Type 2 diabetes mellitus without complications (principal); E66.01 Morbid (severe) obesity due to excess calories; R80.9 Proteinuria, unspecified | CPT/HCPCS: 99212 ==

== ENCOUNTER 2025-10-17 13:55 | Outpatient (AMB) | payer OTHER, SELFPAY ==
--- NOTE | 2025-10-17 14:00 | A.OFFVIS_ITS ---
Vital Signs 10/17/25 14:02 Height 5 ft 5 in Weight 275 lb BMI 45.8 BP 106/60 Blood Pressure Location Lt brachial Position Sitting Pulse 110 H Intake Visit Reasons: follow up Intake Note: Patient follow up for Constipation, h pylori and lab/fecal results Patient cc: chronic abdominal pain with bloating, acid reflux, between diarrhea and constipation with some bloody stool. Patient said that she was dx with Intestinal Malrotation when she was a little girl. Critical Care Specialist Required: Yes Critical Care Specialist Name: Sophia Ospina Accompanied by: Self / Same As Patient Allergies erythromycin base Allergy (Intermediate, Verified 10/17/25 13:59) Swelling levofloxacin (From LEVAQUIN) Allergy (Intermediate, Verified 10/17/25 13:59) RASH AND HIVES Penicillins (PENICILLINS) Allergy (Intermediate, Verified 10/17/25 13:59) Swelling metformin Adverse Reaction (Severe, Verified 10/17/25 13:59) contraindicated in myasthenia gravis dulaglutide (From Trulicity) Adverse Reaction (Intermediate, Verified 10/17/25 13:59) inadequate response HPI HPI follow up: Details: Patient is a 34-year-old female with PMH of MYNOR, obesity, asthma, hypertension and GERD. F/u for recurrent reflux sx and umbilical pain. Pt reports return of epigastric pain and GERD sx Pt?s reflux and everette-umbilical pain resolved after H. pylori tx in May. Sx recurred in past month, temporally assoc w/ resumption of high-protein wt loss diet. Bowel habits variable: alternating constipation and diarrhea. Previously self- managed constipation w/ OTC laxative; d/c?d Miralax after advice during COVID episode. No recent hematochezia; prior h/o diarrhea w/ blood in May. No hospitalizations or ED visits. Pt compliant w/ hydration (10 x 12?16 oz water/d) and continues lifestyle efforts for metabolic dz. procedures pending d/t need for cardiac clearance. [facility] Medical History (Updated 10/17/25 @ 14:52 by Stephanie Mayorga CNP) Change in stool Fatty liver Blood in stool Elevated fecal calprotectin Morbid obesity Migraines Hypertension Myasthenia gravis Moderate recurrent major depression Chronic cough MYNOR (obstructive sleep apnea) COVID-19 vaccine series completed Chronic diarrhea Obesity due to excess calories Myasthenia gravis Asthma Sleep apnea GERD (gastroesophageal reflux disease) CAD (coronary artery disease) Lower back pain Surgical History H/O section History of esophagogastroduodenoscopy (EGD) S/P thymectomy History of tonsillectomy and adenoidectomy History of cholecystectomy Family History Father Hypertension Diabetes Mother Diabetes Hypertension Maternal Grandfather Diabetes Hypertension Bone cancer Maternal Aunt Breast cancer Maternal Grandmother Diabetes Hypertension CVD (cardiovascular disease) Other Mental health disorder Social History Housing: Apartment Are you a primary health and social care teacher to a significant other at home: No Do you presently have visiting nurse or other home services: Yes Alcohol intake: never Patient Tobacco Use Status: Never used Tobacco e-Cigarette/Vaping Use: Never Used Second Hand Smoke Exposure: No service: No Current occupational status: unemployed Current occupational exposures/hazards: No Cognitive needs: Yes (walker) Hearing needs: No Vision needs: No Female Reproductive History Menstrual Age of Menarche: 11 Review of Systems Const Reports as per HPI ENT Reports as per HPI Card Reports as per HPI Resp Reports as per HPI GI Reports as per HPI Reports as per HPI Physical Exam Vital Signs: Last Vital Signs Pulse 110 H 10/17/25 14:02 BP 106/60 10/17/25 14:02 BMI result Body Mass Index 45.8 Const General: healthy appearing, no acute distress and well developed Nutritional Appearance: obese Orientation/consciousness: patient oriented x3 HEENT Head: Yes normal to inspection, Yes normocephalic and Yes atraumatic Face and sinus: Yes normal facial exam Eyes General: appearance normal, both eyes and all related structures Neck Neck: Yes normal visual inspection Resp Effort & Inspection: normal respiratory effort, able to speak in complete sentences, no tracheal deviation and symmetric chest movement Cardio Jugular venous distension: no JVD GI Inspection: Yes obesity Neuro General: patient oriented x3 Gait exam (Neuro): Normal gait present Psych Appearance: grossly normal Mental Status: mental status grossly normal Speech and movement: Normal speech and movement present Affect: normal affect Attitude: cooperative Thought process: Normal thought process present Thought content: Normal thought content present Insight: Good insight present (Psych) Judgement: Good judgement present (Psych) Assessment & Plan Assessment & Plan (1) GERD (gastroesophageal reflux disease): Code(s): K21.9 - Gastro-esophageal reflux disease without esophagitis Category: Medical Qualifiers: Esophagitis presence: esophagitis presence not specified Qualified Code(s): K21.9 - Gastro-esophageal reflux disease without esophagitis Plan: Intermittently worsening; episodic since high-protein diet reinstated. possible diet/gut motility correlation. Additional Testing: - UGI series ( pt to call for scheduling, no showed 09/21 appt) to assess anatomy and mucosal pathology. - Schedule colonoscopy and EGD after cardiac clearance (02/2026). Medications: - Initiate pantoprazole 1 tab PO daily. - Continue famotidine PRN qHS for breakthrough sx. Lifestyle Recommendations: - Continue hydration; monitor trigger foods, especially high-protein dietary changes. - Reinforce dietary moderation, avoid large meals close to bedtime. Referrals / Coordination: - Cardiology clearance pending for procedure scheduling. F/u Plan: - Office f/u after imaging results; symptom diary for reflux/abdo pain. (2) Change in stool: Code(s): R19.5 - Other fecal abnormalities Category: Medical Plan: Persistent bowel pattern disturbance (Alternating constipation and diarrhea) , high-protein diet likely causative. partially responsive to OTC laxatives. compliance/barriers identified. Additional Testing: - Colonoscopy/EGD pending clearance. - CT entergraphy ordered to further eval elevated fecal sandra and ongoing sx. - X-ray abdo: evaluate bowel anatomy. patient may walk in at convenience. Medications: - Start Miralax daily, 1 capful in 8 oz water, titrate to effect. Lifestyle Recommendations: - Maintain adequate hydration (>80-160 oz water/d). - Gradual diet changes; monitor stool pattern with symptom log. Referrals / Coordination: - Imaging coordinated as above. F/u Plan: - Symptom tracking, reevaluate regimen after imaging and/or endoscopy. (3) Fatty liver: Code(s): K76.0 - Fatty (change of) liver, not elsewhere classified Category: Medical Plan: Stable, no progression/fibrosis per latest US/labs. Ongoing risk factors; counseling on lifestyle. Additional Testing: - Continue routine LFTs; no new labs ordered today. Medications: - Continue statin as prescribed. - Maintain glycemic mgmt w/ current diabetic regimens. Lifestyle Recommendations: - Ongoing weight loss, maintain diabetes and lipid goals. - Educational counseling (verbal) provided regarding risks/progression. Referrals / Coordination: - None at present. F/u Plan: - Review LFTs at future f/u; continue monitoring for sx of hepatic decompensation. (4) Morbid obesity with BMI of 45.0-49.9, adult: Code(s): E66.01 - Morbid (severe) obesity due to excess calories; Z68.42 - Body mass index [BMI] 45.0-49.9, adult Category: Medical Plan: Ongoing; pt actively pursuing wt loss w/ high-protein diet and meal replacements. Some dietary barriers and GI sx impacting adherence. Additional Testing: - None specific; monitor impact of dietary changes on GI/metabolic status. Medications: - Continue current anti-obesity/DM agents (tirzepatide). Lifestyle Recommendations: - Reinforce gradual, sustainable dietary modifications; avoid extreme restriction. - Encourage regular physical activity as tolerated. - Continue hydration. Referrals / Coordination: - Continue with weight management team Follow-Up Plan: - Monitor wt Plan Follow-up after imaging or sooner as needed Time: I spent a total of 40 minutes on the date of encounter which includes: Preparing to see the patient (reviewed previous documentation, test results and medical history) Performing a medically appropriate exam and/or evaluation Ordering medications, tests, and procedures Documenting clinical information in the health record Orders: Orders XR KUB Today K59.00 - Constipation, unspecified, R10.9 - Unspecified abdominal pain FL upper GI small bowel Today K21.9 - Gastro-esophageal reflux disease without esophagitis, R10.9 - Unspecified abdominal pain CT enterography Today K59.00 - Constipation, unspecified, K92.1 - Melena, R10.9 - Unspecified abdominal pain, R19.5 - Other fecal abnormalities Medications: New polyethylene glycol 3350 (Miralax) Take 17G (one cap full) daily with 8oz of water 17 grams PO DAILY 510 grams 2RF constipation 30 days Changed From pantoprazole Take 1 tablet twice for 14 days 40 mg PO BID 28 tabs 0RF To pantoprazole Take 1 tablet daily 40 mg PO DAILY 90 tabs 1RF Coding Level of Care Code Established Pt Est Pt Level 5 (61373) Patient Type Established Diagnoses Gastroesophageal reflux disease, unspecified whether esophagitis present K21.9 Esophagitis presence: esophagitis presence not specified Change in stool R19.5 Fatty liver K76.0 Morbid obesity with BMI of 45.0-49.9, adult E66.01; Z68.42
[2025-10-17 14:02] VITALS: BP 106/60; PULSE 110; BMI 45.8
== END 2025-10-17 15:02 | disposition home or self-care (01) ==
LOC: HO.HGI 13:56
PROVIDERS: PCP Internal Medicine; Visit Provider Nurse Practitioner Family
DX: R19.5 Other fecal abnormalities (principal); K76.0 Fatty (change of) liver, not elsewhere classified; E66.01 Morbid (severe) obesity due to excess calories; Z68.42 Body mass index [BMI] 45.0-49.9, adult; K21.9 Gastro-esophageal reflux disease without esophagitis
CPT/HCPCS: 99215

== ENCOUNTER → 2025-10-17 13:55 | Outpatient (BNVA) | payer OTHER, SELFPAY | PROVIDERS: PCP Internal Medicine; Visit Provider Nurse Practitioner Family | DX: K21.9 Gastro-esophageal reflux disease without esophagitis (principal); K76.0 Fatty (change of) liver, not elsewhere classified; R19.5 Other fecal abnormalities; E66.01 Morbid (severe) obesity due to excess calories; Z68.42 Body mass index [BMI] 45.0-49.9, adult | CPT/HCPCS: 99212 ==

== ENCOUNTER 2025-11-13 08:16 | Outpatient (REF) | payer OTHER, SELFPAY ==
--- NOTE | ~2025-11-13 | CT_ITS ---
EXAMINATION: CT ABDOMEN PELVIS ENTEROGRAPHY WITHOUT IV CONTRAST HISTORY: R19.5 - Other fecal abnormalities COMPARISON: There are no prior studies for available comparison. TECHNIQUE: CT enterography of the abdomen and pelvis was performed following administration of 85 mL Omnipaque 350 using standard departmental protocol. Coronal and sagittal reformatted images were generated and reviewed. The patient received low-density oral contrast material for CT enterography. This CT exam was performed with one or more of the following dose reduction techniques: automated exposure control, adjustment of the mA and/or kV according to patient size, use of iterative reconstruction technique. DLP: 971 mGy-cm FINDINGS: LOWER CHEST: The visualized lung bases are clear. There is no pleural effusion. CARDIOVASCULATURE: The heart is normal in size. There is no pericardial effusion. LIVER: The liver is normal in size and contour, but demonstrates decreased attenuation, compatible with steatosis.. No liver mass is identified. The hepatic and portal veins are patent. GALLBLADDER / BILE DUCTS: The gallbladder is surgically absent. There is no intra or extrahepatic biliary ductal dilatation. SPLEEN: The spleen is enlarged. No focal splenic lesion is identified. PANCREAS: The pancreas is unremarkable in appearance. ADRENAL GLANDS: Within normal limits. KIDNEYS/RETROPERITONEUM: No renal calculi are identified. There is no hydronephrosis. No renal masses are identified. LYMPH NODES: No abdominal or pelvic lymphadenopathy. VASCULATURE: The abdominal aorta is normal in caliber. MESENTERY/PERITONEUM: No free fluid. No masses. There is no free intraperitoneal gas. STOMACH: The stomach is unremarkable. SMALL BOWEL: The small bowel is normal in caliber. No abnormal small bowel wall thickening or mucosal hyperenhancement is seen. COLON: There is a large amount of stool in the colon. APPENDIX: Normal. URINARY BLADDER/PELVIC ORGANS: The urinary bladder is unremarkable. The uterus and ovaries are unremarkable. BONES / SOFT TISSUES: No suspicious bony or soft tissue abnormalities. CT/CT enterography IMPRESSION: 1. No small bowel abnormality is identified. 2. Large amount of stool throughout the colon. 3. Hepatic steatosis. Splenomegaly. Electronically signed by: Devon Hicks MD 11/13/2025 10:26 AM [facility] [place]
[2025-11-13] MEDS: iohexoL 350 MG/ML 100 ML INFUS..BTL IV (10:08)
[2025-11-13] MEDS: Sorbitol/Mannit/Xanth Imaging 500 ML LIQUID 1500 ML PO (10:09)
== END 2025-11-13 08:17 ==
LOC: HO.CT 08:16
PROVIDERS: PCP Internal Medicine; Visit Provider Nurse Practitioner Family
DX: K92.1 Melena (principal); R10.9 Unspecified abdominal pain; K59.00 Constipation, unspecified
CPT/HCPCS: 74177; Q9967

== ENCOUNTER → 2025-11-13 08:18 | Outpatient (BNV) | payer OTHER, SELFPAY | PROVIDERS: PCP Internal Medicine; Visit Provider Radiology Diagnostic Radiology | DX: K76.0 Fatty (change of) liver, not elsewhere classified (principal); R16.1 Splenomegaly, not elsewhere classified | CPT/HCPCS: 74177 ==